=== PATIENT | male | born 1935 | race Caucasian/White ===

== ENCOUNTER → 2016-04-04 | Outpatient (CLI) | payer MEDICARE ==
[2016-04-04 09:15] LABS: Basophils % (A) 0 %; CH 32.2; CHCM 34.1; Eosinophils # (A) 0.5 k/uL (0-0.7); Eosinophils % (A) 6 %; HCT 46.3 % (39.0-53.0); HGB 15.3 gm/dL (13.0-17.5); Luc # (Auto) 0.15; Luc % (Auto) 2; Lymphocytes # (A) 1.9 k/uL (1.0-4.8); Lymphocytes % (A) 20 %; MCH 31.5 pg (25.0-35.0); MCV 95.3 fL (80.0-100.0); Mean Platelet Volume 7.4; Monocytes # (A) 0.5 k/uL (0-1.0); Monocytes % (A) 6 %; Neutrophils # (A) 6.1 k/uL (1.3-7.7); Neutrophils % (A) 66 %; RBC 4.86 m/uL (4.30-5.90); RDW 13.7 % (11.5-15.5); WBC 9.2 k/uL (3.8-10.6); WBC (Perox) 9.67
--- NOTE | 2016-04-04 09:16 | XR ---
EXAMINATION TYPE: XR chest 2V DATE OF EXAM: 04/04/2016 9:09 AM HISTORY: Preoperative this. REFERENCE: Previous study dated 1. FINDINGS: The lungs are clear. Pleural spaces are clear. Heart size is normal. IMPRESSION: NORMAL CHEST.
[2016-04-04 09:22] LABS: INR 1.1 (<1.1); Partial Thromboplastin Time 26.2 sec (22.0-30.0); Prothrombin Time 10.9 sec (9.0-12.0)
[2016-04-04 09:25] LABS: Appearance,Urine Clear (Clear); Bacteria,Urine Rare /hpf; Bilirubin,Urine Negative (Negative); Glucose,Urine (UA) 2+ (Negative); Ketones,Urine Negative (Negative); Leukocyte Esterase,Urine Moderate (Negative); Mucus,Urine Rare /hpf; Nitrite,Urine Negative (Negative); Particle Count 1123; Protein,Urine Negative (Negative); RBC,Urine 1 /hpf (0-5); Specific Gravity,Urine 1.016 (1.001-1.035); Squamous Epithelial Cell,Urine <1 /hpf (0-4); UA Billing (MACRO vs. MICRO) MICRO; Urobilinogen,Urine <2.0 mg/dL (<2.0); WBC,Urine 4 /hpf (0-5)
[2016-04-04 09:34] LABS: Anion Gap 10 mmol/L; Blood Urea Nitrogen 24 mg/dL (9-20); Calcium 9.3 mg/dL (8.4-10.2); Carbon Dioxide 31 mmol/L (22-30); Chloride 104 mmol/L (98-107); Glucose 127 mg/dL (74-99); Non-African American GFR(MDRD) >60 (>60 ml/min/1.73 sqM); Sodium 145 mmol/L (137-145)
[2016-04-04 10:04] LABS: Potassium 4.4 mmol/L (3.5-5.1)
== END | disposition home or self-care (01) ==
LOC: LABPAT 08:25
PROVIDERS: ATTEND Orthopaedic Surgery Orthopaedic Surgery of the Spine
DX: Z01.818 Encounter for other preprocedural examination (principal); Z01.812 Encounter for preprocedural laboratory examination
CPT/HCPCS: 71020; 80048; 81001; 85025; 85610; 85730; 86850; 86900; 86901; 87070

== ENCOUNTER 2016-04-13 05:50 | Inpatient (IN) | payer MEDICARE ==
[2016-04-12 10:54] VITALS: BMI 27.4
[~2016-04-13 05:50] MED LIST: BACITRACIN 50,000 UNIT, POLYMYXIN B 500,000 UNIT in SODIUM CHLORIDE 0.9% IRRIGATIO 1,00... IRRIGATION ONE; DEXAMETHASONE SOD PHOSPHATE 10 MG/ML 1 ML VIAL IV ONE; HYDROmorphone 1 MG/ML 1 ML SYRINGE IVP PRN; ONDANSETRON 4 MG/2 ML VIAL IVP ONE; ceFAZolin 2 GM in SODIUM CHLORIDE 0.9% 100 ML IVPB ONE
[2016-04-13] MEDS ORDERED: LACTATED RINGERS 1,000 ML IV ONE ×3 (06:30→11:48)
[2016-04-13 06:38] LABS: Glucose,Whole Blood 163 mg/dL (75-99)
[2016-04-13] MEDS ORDERED: PHENYLEPHRINE-0.9% NACL SYG 1 MG/10 ML SYRINGE ONE (07:33)
[2016-04-13] MEDS ORDERED: PROPOFOL 10 MG/ML 20 ML VIAL IV ONE (07:33)
[2016-04-13] MEDS ORDERED: HYDROmorphone (PF) 1 MG/ML ONE (07:33)
[2016-04-13] MEDS ORDERED: GLYCOPYRROLATE 0.2 MG/ML 2 ML VIAL ONE (07:33)
[2016-04-13] MEDS ORDERED: HEPARIN SODIUM,PORCINE 10,000 UNIT/ML 1 ML VIAL ONE (07:33)
[2016-04-13] MEDS ORDERED: SUCCINYLCHOLINE CHLORIDE 100 MG/5 ML SYR IV ONE (07:33)
[2016-04-13] MEDS ORDERED: ePHEDrine 50 MG/ML 1 ML AMP ONE (07:33)
[2016-04-13] MEDS ORDERED: LIDOCAINE 1% INJ 10MG/ML (20 ML MDV) ONE (07:33)
[2016-04-13] MEDS ORDERED: SODIUM CHLORIDE 0.9% IRRIG 1,000 ML BTL IRRIGATION ONE (07:33)
[2016-04-13] MEDS ORDERED: fentaNYL (PF) 50 MCG/ML 2 ML AMP ONE (07:33)
[2016-04-13] MEDS ORDERED: BUPIVACAINE LIPOSOME/PF 1.3% 20 ML, BUPIVACAIN-EPI 0.5%-1:200,000 25 ML, SODIUM CHLORID... MISCELLANE ONE ×3 (08:01)
[2016-04-13] MEDS ORDERED: LIDOCAINE 1% INJ 10MG/ML (20 ML MDV) SQ ONE (08:30)
[2016-04-13] MEDS ORDERED: GELATIN SPONGE,ABSORB (LARGE) 1 EACH SPONGE TOPICAL ONE (08:30)
[2016-04-13] MEDS ORDERED: THROMBIN (BOVINE) 5,000 UNIT VIAL TOPICAL ONE (08:30)
[2016-04-13] MEDS ORDERED: ONDANSETRON 4 MG/2 ML VIAL IVP PRN (12:38)
[2016-04-13] MEDS ORDERED: HYDROcodone/APAP 5-325MG 1 EACH TAB PO PRN (12:38)
[2016-04-13] MEDS ORDERED: BENZOCAINE/MENTHOL LOZENG 1 EACH LOZENGE MUCOUS MEM PRN (12:38)
[2016-04-13] MEDS ORDERED: DIAZEPAM 5 MG TAB PO PRN (12:38)
[2016-04-13] MEDS ORDERED: HYDROmorphone 1 MG/ML 1 ML SYRINGE IVP PRN (12:38)
[2016-04-13] MEDS ORDERED: traMADol 50 MG TAB PO PRN (12:41)
[2016-04-13] MEDS ORDERED: ONDANSETRON 4 MG TAB PO PRN (12:41)
--- NOTE | 2016-04-13 12:42 | FL ---
FLUOROSCOPY 2 minutes and 56 seconds of fluoroscopy time were utilized during lumbar fusion. 5 images document th e procedure.
--- NOTE | 2016-04-13 12:54 | P.OP ---
Date of Procedure: 04/13/16 Preoperative Diagnosis: Severe spinal stenosis, recurrent L4 5, spondylolisthesis L4 5, spinal stenosis L3 4, degenerative disc disease, degenerative scoliosis Postoperative Diagnosis: Same Anesthesia: GETA Pathology: none sent Condition: stable Disposition: PACU Description of Procedure: DESCRIPTION OF PROCEDURE(S): BRIEF OPERATIVE NOTE Preoperative Diagnosis: Recurrent stenosis L4 5, severe spinal stenosis L4 5, spinal stenosis L3 4, degenerative scoliosis, spondylolisthesis L4 5, degenerative disc disease Postoperative Diagnosis: Same Procedure: Revision L4 5 Laminectomy and decompression with wide bilateral foraminotomies Laminectomy decompression with foraminotomies L3 4 Minimally invasive Posterior lateral decompression and fusion L3 4 L4 5 Minimally invasive Transforaminal lumbar interbody fusion for a 360 fusion L3 4 L4 5 Discectomy for decompression L3 4 L4 5 Placement of interbody graft L3 4 L4 5 Iliac crest bone grafting at the right iliac crest through a separate fascial incision Bone marrow aspiration left iliac crest through separate fascial incision using a bone marrow aspiration device Local autogenous bone grafting Use of Cell Saver Use of bone graft extenders Surgeon: Dr. Cruz Armhole Baster Hand: Jas Menjivar is present throughout the entire the case persistence during positioning, dissection, exposure, visualization, and all crucial elements of the case as well as closure. Anesthesia: General anesthesia Estimated blood loss: Approximately 400 mL with 189 given back through Cell Saver Complications: None apparent Components implanted: K2M minimally invasive Baden pedicle screw system with use of 6 screws measuring 6.5 x 50 mm in length and 2 rods measuring 70 mm in length with 2 interbody cages and 1 large osteoamp cancellus bone allograft to supplement the iliac crest bone graft and local autogenous bone graft Disposition: To recovery room in good stable condition. OPERATIVE INDICATIONS The patient has had long-standing issues in their lower back and lower extremities. He has history of laminectomy decompression at L4 5 in the past. He developed recurrent severe stenosis L4 5 and a spondylolisthesis at that level with degenerative changes as well as severe stenosis L3 4 with evidence of a right facet cyst at L3 4. His images correlated well with his symptoms at his back and his lower extremities. He is having incapacitating pain and was unable to mobilize and was having severe decreased in his overall function. The patient has been through conservative treatment. He is not having any lasting benefit despite aggressive conservative treatment We discussed various treatment options including surgery, and the patient wishes to proceed with surgery We discussed the risk, patient's alternatives and benefits of surgery including but not limited to, risk of bleeding risk of infection, risk of need for further surgery, risk of decreased, loss of motion, muscle function, malunion nonunion, hardware failure, nerve damage, paralysis, heart attack, blindness and . OPERATIVE SUMMARY After discussing all the risks, patient alternatives and benefits at length, the patient elected to proceed with surgical intervention, signed informed consent, and presented for their procedure. The patient was seen and examined in the preoperative holding area and the surgical site was marked. The patient was given antibiotics and brought to the operating room. The patient was sedated and intubated by anesthesia in standard fashion. The patient was positioned on to the operating room table in a prone position on the appropriate frame which was well-padded and well molded. We were careful to pad any bony prominences and pressure points. We were careful to maintain the patient's cervical spine and good neutral alignment and position throughout. The patient was prepped and draped in a normal standard fashion. An appropriate timeout and keystone protocol performed. We were able to proceed with the surgery. The local wound area was infiltrated with local anesthetic. I was able utilize C-arm guidance to establish appropriate position over the pedicles bilaterally at the appropriate levels bilaterally at L3 to 5. With the appropriate levels confirmed was able to make small stab incisions over the appropriate pedicle sites bilaterally. On the right side I dissected over to the iliac crest and through a separate fascial incision I was able to establish access to the right iliac crest. I made a small cortical window with a rongeur and then took a good amount of cancellus autograft from the right iliac crest with spaces later in the case. On the left side I dissected over and through separate fascial incision I made a access for bone aspiration device and planted device and took approximately 20 mL of bone marrow aspirate from the left iliac crest. The fascial incisions were closed with a #1 Vicryl after irrigation and suctioned dry. Utilizing C-arm in his house able to establish a Jamshidi needle over the lateral aspect of the pedicle and advanced the trocar into the pedicle being careful not to breech superiorly inferiorly medially or laterally. Position was confirmed regularly with AP and lateral images on C-arm. I was able to establish the trocar into the pedicle appropriately into the posterior aspect of the vertebral body bilaterally at the appropriate levels at L3 4 and 5 bilaterally. This was done at each of the pedicle positions and each of the vertebrae. I was able place the guidewire into the trocar and into the vertebral body appropriately under C-arm guidance. Dissection was taken down over the wire to the appropriate starting position for the screw placed. The appropriate length screw was chosen, threaded over the guidewire and screwed appropriately into the pedicle and vertebral body under C-arm guidance in excellent alignment and position with good bony purchase. This is done at each of the screw sites at the appropriate levels at L3 4 and 5. With the screws intact I extended the incision to connect the screw hole sites on the most symptomatic side on the right first at L4 5 and then at L3 4. I dissected down to establish access over the pars and lamina to the base of the spinous process. I was able to expose the facet joint. The capsule the facet was taken down and showed some facet arthrosis at the joint. I was able to use a combination of curettes and Kerrison rongeurs and a high-speed drill to take down the facet joint and do a facetectomy. Partial laminectomy was also performed. There was significant scar tissue formation from prior laminectomy at L4 5 that was able to take down and get good decompression. I was able get excellent foraminal decompression and central decompression with undermining across midline to perform a laminectomy centrally and contralaterally. I was able get good central decompression. The ligamentum flavum was taken down to further decompress centrally and at bilateral neural foramen. I was able to expose the disc space and visualize the traversing nerve root. No was made of some disc protrusion at the level causing further compression of the nerve root. I was able to establish a annulotomy at the appropriate level protecting soft tissue and neural structures. No was made of some disc desiccation at the disc. I performed a complete discectomy with accommodation of curettes and rasps and scrapers. I was able get good endplate preparation at the disc space. I sized for the appropriate size interbody spacer protecting the soft tissue and neural structures. The wound was copiously irrigated and suctioned dry. There is no evidence of any dural tear or leak. The same process was done at L4 5 and then at L3 4. I was able to pack the disc space with autogenous bone graft from the right iliac crest as well as some bone marrow aspirate as well as a which was also placed into the interbody cage itself. The interbody space was packed with autogenous bone graft as well as local autogenous bone graft and ostiaoamp. Protecting the soft tissue structures and neural structures I was able place the interbody cage in good alignment and good position with good fit and fill at the interbody space. His issues was confirmed with C-arm guidance. Good hemostasis maintained. There is no evidence of any dural tear or leak. The wound was irrigated and suctioned dry. On the left side at L4 5 I did a facetectomy and laminectomy as well. I was able get excellent bilateral to compression. With the hardware intact, intraoperative C-arm imaging was again taken which showed good alignment and position of the hardware at the appropriate levels both at L3 4 and L4 5. We were then able to measure, contour and place the rods and appropriate hardware bilaterally. I was able to place capcrews, tighten them down, and shear them off appropriately. The sheared portion was counted and accounted for. With this intact I was able to place the local autogenous bone graft with additional bone graft enhancer as necessary into the posterior lateral gutters over the decorticated transverse processes. The remainder of the infuse was placed over the facet joint on the contralateral side after taking down the facet joint capsule. With the bone graft intact, a stable construct, and good decompression at the appropriate levels, we were able to proceed with closure. Good hemostasis was maintained. There is no evidence of dural tear or leak. The fascia was closed for a watertight closure. he subcuticular tissue was closed with absorbable suture. The wound was cleaned and dried and dressed with the appropriate dressing. The drapes were broken down. The patient was gently rolled back onto their hospital bed being careful to maintain their cervical spine and good neutral alignment and position. They were woken up by anesthesia, extubated, and brought to the recovery room in good stable condition. The patient will be admitted to the hospital for appropriate postoperative care , medical management and monitoring. We will continue to follow them closely about the postoperative course.
[2016-04-13 13:20] LABS: Glucose,Whole Blood 133 mg/dL (75-99)
[2016-04-13] MEDS: LACTATED RINGERS 1,000 ML IV SCH (14:13)
[2016-04-13] MEDS: SODIUM CHLORIDE 0.9% 1,000 ML IV SCH (15:16)
[2016-04-13] MEDS: ceFAZolin 2 GM in SODIUM CHLORIDE 0.9% 100 ML IVPB SCH ×2 (15:16→23:59)
[2016-04-13] MEDS: DICYCLOMINE 10 MG CAP PO SCH ×2 (16:01→21:24)
[2016-04-13] MEDS: GABAPENTIN 100 MG CAP PO SCH ×2 (16:01→21:24)
[2016-04-13 17:15] LABS: Glucose,Whole Blood 100 mg/dL (75-99)
[2016-04-13] MEDS: HYDROcodone/APAP 5-325MG 1 EACH TAB PO PRN (19:47)
[2016-04-13 20:42] LABS: Glucose,Whole Blood 135 mg/dL (75-99)
[2016-04-13] MEDS: INSULIN DETEMIR 100 UNIT/ML 10 ML VIAL SQ SCH (21:22)
[2016-04-13] MEDS: PRAVASTATIN SODIUM 80 MG TAB PO SCH (21:24)
[2016-04-13] MEDS: METOPROLOL TARTRATE 25 MG TAB PO SCH (21:24)
[2016-04-14] MEDS: SODIUM CHLORIDE 0.9% 1,000 ML IV SCH ×2 (04:35→17:05)
[2016-04-14] MEDS: HYDROcodone/APAP 5-325MG 1 EACH TAB PO PRN ×4 (05:47→20:29)
[2016-04-14] MEDS: LACTATED RINGERS 1,000 ML IV SCH (05:59)
[2016-04-14] MEDS: LEVOTHYROXINE 25 MCG TAB PO SCH (06:12)
[2016-04-14 08:02] LABS: Glucose,Whole Blood 84 mg/dL (75-99)
[2016-04-14 08:37] LABS: Basophils % (A) 0 %; CH 31.8; CHCM 33.4; Eosinophils % (A) 0 %; HCT 39.4 % (39.0-53.0); HDW 2.96; HGB 12.9 gm/dL (13.0-17.5); Luc % (Auto) 1; Lymphocytes % (A) 6 %; MCH 31.4 pg (25.0-35.0); MCHC 32.8 g/dL (31.0-37.0); MCV 95.8 fL (80.0-100.0); Mean Platelet Volume 7.7; Monocytes # (A) 1.1 k/uL (0-1.0); Monocytes % (A) 7 %; Neutrophils % (A) 86 %; RBC 4.11 m/uL (4.30-5.90); RDW 13.7 % (11.5-15.5); WBC 16.4 k/uL (3.8-10.6); WBC (Perox) 17.36
[2016-04-14 08:50] LABS: Anion Gap 10 mmol/L; Blood Urea Nitrogen 20 mg/dL (9-20); Calcium 8.4 mg/dL (8.4-10.2); Carbon Dioxide 27 mmol/L (22-30); Chloride 104 mmol/L (98-107); Glucose 86 mg/dL (74-99); Non-African American GFR(MDRD) >60 (>60 ml/min/1.73 sqM); Potassium 4.4 mmol/L (3.5-5.1); Sodium 141 mmol/L (137-145)
[2016-04-14] MEDS: METOPROLOL TARTRATE 25 MG TAB PO SCH ×2 (08:51→21:18)
[2016-04-14] MEDS: TAMSULOSIN 0.4 MG CAP.ER.24H PO SCH (08:51)
[2016-04-14] MEDS: FUROSEMIDE 40 MG TAB PO SCH (08:51)
[2016-04-14] MEDS: AMIODARONE 200 MG TAB PO SCH (08:51)
[2016-04-14] MEDS: POTASSIUM CHLORIDE ER 20 MEQ TAB.ER PO SCH (08:51)
[2016-04-14] MEDS: GABAPENTIN 100 MG CAP PO SCH ×3 (08:52→20:25)
[2016-04-14] MEDS: DICYCLOMINE 10 MG CAP PO SCH ×3 (08:52→20:25)
[2016-04-14] MEDS: LISINOPRIL 20 MG TAB PO SCH (08:52)
[2016-04-14] MEDS: APIXABAN 5 MG TAB PO SCH ×2 (08:52→20:25)
--- NOTE | 2016-04-14 10:42 | P.CONS ---
History of Present Illness - Reason for Consult Consult date: 04/14/16 Medical management Requesting physician: Job Cruz - Chief Complaint Status post laminectomy and decompression - History of Present Illness This is a 80-year-old male with a known history of diabetes, hypertension, atrial fibrillation, myocardial infarction, hypothyroidism, congestive heart failure and BPH. He has been suffering with back pain and has history of severe spinal stenosis. Patient underwent revision of L4-L5 laminectomy and decompression with wide bullet lateral foraminotomies. With laminectomy and decompression with foraminotomies at L3-L4. Estimated blood loss was 400 mL. No complications reported. Patient is currently sitting at bedside chair. Pain is controlled. Does admit to some shortness of breath going from the bed to the chair. He denies any chest pain. Denies any nausea or vomiting. Denies any bowel movement changes. Cevallos catheter removed this morning. We've been consulted for medical management. Patient denies any fever, chills, sweats. Review of Systems Please refer to HPI otherwise unremarkable Past Medical History Past Medical History: Atrial Fibrillation, Heart Failure, Diabetes Mellitus, Hyperlipidemia, Hypertension, Prostate Disorder Additional Past Medical History / Comment(s): CARDIAC ARREST - LAST ONE AUGUST 2014 , palpations,CARDIOMYOPATHY Last Myocardial Infarction Date:: 2014 History of Any Multi-Drug Resistant Organisms: None Reported Past Surgical History: Back Surgery Past Anesthesia/Blood Transfusion Reactions: No Reported Reaction Past Psychological History: No Psychological Hx Reported Smoking Status: Never smoker Past Alcohol Use History: None Reported Past Drug Use History: None Reported - Past Family History Mother Family Medical History: No Reported History Medications and Allergies Home Medications Medication Instructions Recorded Confirmed Type Potassium Chloride [Klor-Con 20] 20 meq PO QAM 08/15/13 04/13/16 History Furosemide 40 mg PO QAM 08/29/14 04/13/16 History Tamsulosin [Flomax] 0.4 mg PO DAILY 08/29/14 04/13/16 History Amiodarone [Cordarone] 200 mg PO DAILY 10/28/15 04/13/16 History Apixaban [Eliquis] 5 mg PO BID 10/28/15 04/13/16 History Dicyclomine [Bentyl] 10 mg PO TID 10/28/15 04/13/16 History Insulin Detemir [Levemir] 35 unit SQ HS 10/28/15 04/13/16 History Metoprolol Tartrate [Lopressor] 25 mg PO BID 10/28/15 04/13/16 History Ondansetron [Zofran] 4 mg PO Q8HR PRN 10/28/15 04/13/16 History Pravastatin Sodium [Pravachol] 80 mg PO HS 10/28/15 04/13/16 History traMADol HCL [Ultram] 50 mg PO Q6HR PRN 10/28/15 04/13/16 History Gabapentin [Neurontin] 100 mg PO TID 04/11/16 04/13/16 History Levothyroxine Sodium [Synthroid] 25 mcg PO DAILY 04/11/16 04/13/16 History Enalapril [Vasotec] 20 mg PO DAILY 04/13/16 04/13/16 History Allergies Allergy/AdvReac Type Severity Reaction Status Date / Time No Known Allergies Allergy Verified 04/11/16 15:12 Physical Exam Vitals: Vital Signs Temp Pulse Pulse Resp BP Pulse Ox 04/14/16 08:11 97.9 F 64 12 123/66 97 04/14/16 00:00 52 L 65 16 04/13/16 20:47 98.5 F 65 16 134/68 98 04/13/16 16:00 16 04/13/16 13:30 52 L 16 118/56 97 04/13/16 13:15 52 L 16 122/58 97 04/13/16 13:00 52 L 16 127/60 97 04/13/16 12:53 98.3 F 57 L 11 L 128/60 98 Intake and Output 04/13/16 04/14/16 04/14/16 22:59 06:59 14:59 Intake Total 600 600 Output Total 400 Balance 600 200 Intake: IV 600 600 Sodium Chloride 0.9% 1, 600 600 000 ml @ 75 mls/hr IV . [id number] Rx#:[id number] Output: Urine 400 Other: Voiding Method Indwelling Catheter Indwelling Catheter Toilet Urinal Head normocephalic Neck supple Lungs clear to auscultation bilaterally no wheezing or crackles Heart regular rate and rhythm S1-S2, no rub or gallop Abdomen is soft nontender nondistended positive bowel sounds no hepatosplenomegaly Extremities trace edema lower extremities Neuro awake and alert. Slightly confused Back: Dressing on back incision small areas of bleeding noted. Results CBC & Chem 7: 04/14/16 07:24 04/14/16 07:24 Labs: Abnormal Lab Results - Last 24 Hours (Table) 04/13/16 04/13/16 04/13/16 Range/Units 13:17 17:13 20:30 WBC (3.8-10.6) k/uL RBC (4.30-5.90) m/uL Hgb (13.0-17.5) gm/dL Plt Count (150-450) k/uL Neutrophils # (1.3-7.7) k/uL Monocytes # (0-1.0) k/uL POC Glucose (mg/dL) 133 H 100 H 135 H (75-99) mg/dL 04/14/16 Range/Units 07:24 WBC 16.4 H (3.8-10.6) k/uL RBC 4.11 L (4.30-5.90) m/uL Hgb 12.9 L (13.0-17.5) gm/dL Plt Count 138 L (150-450) k/uL Neutrophils # 14.0 H (1.3-7.7) k/uL Monocytes # 1.1 H (0-1.0) k/uL POC Glucose (mg/dL) (75-99) mg/dL Assessment and Plan Plan: 1. Severe spinal stenosis, degenerative disc disease, general scoliosis status post revision of L4-L5 laminectomy and decompression with wide bilateral foraminotomies. Laminectomy decompression with foraminotomies of L3-L4. Spinal surgery is following. Continue his current pain control. Continue with physical therapy. 2. History of paroxysmal atrial fibrillation: Eliquis was restarted. Continue amiodarone 3. Leukocytosis: Likely reactive from surgery. Also incentive sponsored will be ordered for any underlying atelectasis 4. Essential hypertension: Resume home blood pressure medications and continue to monitor 5. Diabetes mellitus insulin-dependent. Resume Levemir. Continue sliding scale coverage. 6. History of myocardial infarction 7. History of BPH continue Flomax. Monitor for any urinary retention 8. Hyperlipidemia continue with his pravastatin GI prophylaxis Pepcid and DVT prophylaxis Eliquis Thank you for this consultation. We will continue to follow along with you. Home medications have been reviewed. We will order routine labs tomorrow morning. Time with Patient: Greater than 30 (Greater than 50% of the total time spent in counseling and coordination of care.I performed an examination of the patient and discussed their management with the physician Office Technology Instructor. I have reviewed the Physician Office Technology Instructor's notes and agree with the documented findings and plan of care)
[2016-04-14 11:14] LABS: Hemoglobin A1C 6.8 % (4.2-6.1)
[2016-04-14 11:32] LABS: Glucose,Whole Blood 163 mg/dL (75-99)
[2016-04-14] MEDS: INSULIN LISPRO (humaLOG) 300 UNIT/3 ML VIAL SQ SCH ×3 (13:04→21:16)
[2016-04-14 16:55] LABS: Glucose,Whole Blood 229 mg/dL (75-99)
--- NOTE | 2016-04-14 19:59 | P.PN ---
Progress Note - Text Postoperative day #1 Patient is seen and examined today at bedside. The patient has some pain around the surgical site as expected. Pain is being controlled with medication. He feels his back is doing well and his legs are doing well. Physical Exam Afebrile with stable vital signs Abdomen is soft nontender. Chest has good excursion deep and space expiration The incision site is clean dry and intact. No erythema there is no purulence. His back dressing is clean and dry. Extremities have not had neurologic change from prior to surgery. He has sustained dorsal flexion plantar flexion and extensor hallucis longus. There is some decreased sensation due to neuropathy. Calves and thighs were soft nontender without evidence of DVT. Assessment/Plan Postoperative day #1 status post decompression and fusion with a minimally invasive approach L3 4 and L4 5 with revision decompression L4 5 for his severe spinal stenosis and degenerative scoliosis. Patient is progressing as expected from the surgery. We will try to continue his mobility but he may need placement in extended care facility after discharge if he is not able to mobilize safely on his own. We will continue to increase the patient's mobilization with therapy. We will continue pain control with oral or IV medications. We'll continue to follow patient closely.
[2016-04-14] MEDS: PRAVASTATIN SODIUM 80 MG TAB PO SCH (20:25)
[2016-04-14 20:46] LABS: Glucose,Whole Blood 239 mg/dL (75-99)
[2016-04-14] MEDS: INSULIN DETEMIR 100 UNIT/ML 10 ML VIAL SQ SCH (21:16)
[2016-04-15] MEDS: LEVOTHYROXINE 25 MCG TAB PO SCH (06:10)
[2016-04-15 07:19] LABS: Glucose,Whole Blood 80 mg/dL (75-99)
[2016-04-15] MEDS: INSULIN LISPRO (humaLOG) 300 UNIT/3 ML VIAL SQ SCH ×4 (07:25→21:14)
[2016-04-15] MEDS: TAMSULOSIN 0.4 MG CAP.ER.24H PO SCH (08:03)
[2016-04-15] MEDS: METOPROLOL TARTRATE 25 MG TAB PO SCH ×2 (08:03→21:14)
[2016-04-15] MEDS: AMIODARONE 200 MG TAB PO SCH (08:03)
[2016-04-15] MEDS: POTASSIUM CHLORIDE ER 20 MEQ TAB.ER PO SCH (08:03)
[2016-04-15] MEDS: GABAPENTIN 100 MG CAP PO SCH ×3 (08:03→21:13)
[2016-04-15] MEDS: LISINOPRIL 20 MG TAB PO SCH ×2 (08:04→09:12)
[2016-04-15] MEDS: DICYCLOMINE 10 MG CAP PO SCH ×3 (08:04→21:14)
[2016-04-15] MEDS: FUROSEMIDE 40 MG TAB PO SCH (08:04)
[2016-04-15] MEDS: FAMOTIDINE 20 MG TAB PO SCH (08:04)
[2016-04-15] MEDS: APIXABAN 5 MG TAB PO SCH ×2 (08:04→21:14)
[2016-04-15 08:09] LABS: Basophils # (A) 0.2 k/uL (0-0.2); Basophils % (A) 1 %; CH 31.8; CHCM 33.7; Eosinophils # (A) 0.2 k/uL (0-0.7); Eosinophils % (A) 1 %; HDW 3.04; HGB 11.3 gm/dL (13.0-17.5); Luc # (Auto) 0.21; Luc % (Auto) 1; Lymphocytes # (A) 1.2 k/uL (1.0-4.8); Lymphocytes % (A) 7 %; MCH 31.6 pg (25.0-35.0); MCHC 33.2 g/dL (31.0-37.0); MCV 95.1 fL (80.0-100.0); Mean Platelet Volume 8.3; Monocytes # (A) 1.1 k/uL (0-1.0); Monocytes % (A) 7 %; Neutrophils # (A) 13.5 k/uL (1.3-7.7); Neutrophils % (A) 82 %; RBC 3.57 m/uL (4.30-5.90); RDW 13.9 % (11.5-15.5); WBC 16.5 k/uL (3.8-10.6); WBC (Perox) 18.23
[2016-04-15] MEDS: HYDROcodone/APAP 5-325MG 1 EACH TAB PO PRN ×3 (08:18→21:12)
--- NOTE | 2016-04-15 08:25 | P.PN ---
Progress Note - Text Orthopedic Spine Patient is a pleasant 80-year-old male who is seen and examined at the bedside following minimally invasive L3-4 and L4-5 posterior lateral decompression and fusion with transforaminal lumbar interbody fusion performed Monday, 2016. Patient states they are doing ok postsurgically. His back pain has been adequately controlled but he does not feel any significant change from a neurological standpoint of bilateral lower extremities. He has had significant difficulty with mobility and ambulation postsurgically. He was able to transfer to bedside chair assistance of physical therapy. He is planning a work with physical therapy today. His Cevallos catheter was discontinued yesterday. Since that time, he's had some difficulty with urinary retention. He has had to have straight catheterization performed which time 650 mL was removed yesterday. His nurse states the urine from his catheterization was cloudy. Patient states he would like to increase his mobility as he would like to avoid being discharged to rehabilitation facility. Currently does not complain of nausea, vomiting, fever, or chills. Patient is eating without difficulty. Physical Exam Lumbar Fusion: Status post surgical day number 2 Patient is awake, alert, and oriented 3 Vital signs stable Good chest excursion with deep inspiration and expiration Abdomen soft nontender Dorsiflexion, plantarflexion, and extensor hallucis longus positive sustained bilaterally No signs or symptoms of DVT; no calf pain; pneumatic cuffs intact bilateral lower extremities Dressing is clean, dry, and intact with a small amount of dried blood; no erythema, purulence, or signs of infection No active drainage at the surgical sites No pain with internal and external rotation of the hips bilaterally Assessment: Minimally invasive posterior lateral decompression and fusion L3-4 and L4-5 Transforaminal lumbar interbody fusion L3-4 and L4-5 Low back pain Lower extremity radiculopathy Plan: 1. Ambulate as tolerated; work with Physical Therapy to increase mobilization 2. Continue pain control with IV and oral medications 3. Tegaderm dressing to remain intact 4. Given his difficulties with urination, cloudy urine after catheterization, and history of recent urinary tract infection, we will currently planned to obtain a urinalysis this morning. If he continues to have difficulty with urination, I discussed with his nurse that we may reinsert a new Cevallos catheter 5. Medical management can continue to manage patient for patient's other medical issues 6. We will continue to follow the patient closely; depending on his progress, we may plan to have him discharged to rehabilitation facility prior to returning home if he is unable to increase his mobility and ambulation to an acceptable level the time of discharge 7. Patient can follow-up with Jas Robbins PA-C or Dr. Krishna Cruz at [facility] in 2-3 weeks following discharge
[2016-04-15 08:45] LABS: ALT 38 U/L (21-72); AST 44 U/L (17-59); Alkaline Phosphatase 55 U/L (38-126); Anion Gap 9 mmol/L; Blood Urea Nitrogen 29 mg/dL (9-20); Calcium 8.3 mg/dL (8.4-10.2); Carbon Dioxide 28 mmol/L (22-30); Chloride 101 mmol/L (98-107); Glucose 82 mg/dL (74-99); Non-African American GFR(MDRD) >60 (>60 ml/min/1.73 sqM); Potassium 4.2 mmol/L (3.5-5.1); Sodium 138 mmol/L (137-145); Total Bilirubin 1.3 mg/dL (0.2-1.3); Total Protein 5.2 g/dL (6.3-8.2)
[2016-04-15 11:27] LABS: Glucose,Whole Blood 87 mg/dL (75-99)
--- NOTE | 2016-04-15 12:29 | P.PN ---
Subjective Says 80-year-old male status post back surgery. Coumadin is controlled. Denies any chest pain, shortness breath, nausea or vomiting. Reports having bowel movement. Patient is had some difficulty urinating. He did require straight cath in the evening. And then he was straight cathed again this morning for a urine specimen. Ruling out urinary tract infection. And checking postvoid residuals. Objective - Vital Signs Vital signs: Vital Signs Temp 98.2 F 04/15/16 07:00 Pulse 64 04/15/16 07:00 Resp 16 04/15/16 07:00 BP 116/58 04/15/16 07:00 Pulse Ox 96 04/15/16 07:00 Intake & Output 04/14/16 04/15/16 04/15/16 18:59 06:59 18:59 Intake Total 450 Output Total 1720 Balance -1270 Intake: IV 0 Sodium Chloride 0.9% 1, 0 000 ml @ 75 mls/hr IV . [id number] [facility] Rx#:[id number] Oral 450 Output: Urine 1700 Uretheral (Cevallos) 650 Post Void Residual 20 Other: Voiding Method Toilet Toilet Urinal Urinal # Voids 1 2 # Bowel Movements 1 - Exam Head normocephalic Neck supple Lungs clear to auscultation bilaterally no wheezing or crackles Heart regular rate and rhythm S1-S2, no rub or gallop Abdomen is soft nontender nondistended positive bowel sounds no hepatosplenomegaly Extremities no edema Neuro alert and orientated to 3. With some confusion Back: Dressing clean dry and intact - Labs CBC & Chem 7: 04/15/16 07:41 04/15/16 07:41 Labs: Abnormal Lab Results - Last 24 Hours (Table) 04/14/16 04/14/16 04/15/16 Range/Units 16:52 20:38 07:41 WBC 16.5 H (3.8-10.6) k/uL RBC 3.57 L (4.30-5.90) m/uL Hgb 11.3 L (13.0-17.5) gm/dL Hct 34.0 L (39.0-53.0) % Plt Count 124 L (150-450) k/uL Neutrophils # 13.5 H (1.3-7.7) k/uL Monocytes # 1.1 H (0-1.0) k/uL BUN (9-20) mg/dL POC Glucose (mg/dL) 229 H 239 H (75-99) mg/dL Calcium (8.4-10.2) mg/dL Total Protein (6.3-8.2) g/dL Albumin (3.5-5.0) g/dL 04/15/16 Range/Units 07:41 WBC (3.8-10.6) k/uL RBC (4.30-5.90) m/uL Hgb (13.0-17.5) gm/dL Hct (39.0-53.0) % Plt Count (150-450) k/uL Neutrophils # (1.3-7.7) k/uL Monocytes # (0-1.0) k/uL BUN 29 H (9-20) mg/dL POC Glucose (mg/dL) (75-99) mg/dL Calcium 8.3 L (8.4-10.2) mg/dL Total Protein 5.2 L (6.3-8.2) g/dL Albumin 2.7 L (3.5-5.0) g/dL Assessment and Plan Plan: 1. Severe spinal stenosis, degenerative disc disease, general scoliosis status post revision of L4-L5 laminectomy and decompression with wide bilateral foraminotomies. Laminectomy decompression with foraminotomies of L3-L4. Spinal surgery is following. Continue his current pain control. Continue with physical therapy. 2. History of paroxysmal atrial fibrillation: Eliquis was restarted. Continue amiodarone 3. Leukocytosis: Possibly reactive from surgery. Continue to monitor. Agree with checking urinalysis to rule out UTI 4. Essential hypertension: Resume home blood pressure medications and continue to monitor 5. Diabetes mellitus insulin-dependent. Resume Levemir. Continue sliding scale coverage. Hemoglobin A1c 6.8 6. History of myocardial infarction 7. History of BPH continue Flomax. Monitor for any urinary retention 8. Hyperlipidemia continue with his pravastatin 9. Urinary retention: Patient did require to be straight cathed. We'll check postvoid residuals every shift. If greater than 200 for catheter will be reinserted. Agree with checking urinalysis with culture to rule out UTI. GI prophylaxis Pepcid and DVT prophylaxis Eliquis
[2016-04-15 15:59] LABS: Amorphous Sediment,Urine Occasional /hpf; Appearance,Urine Clear (Clear); Bilirubin,Urine Negative (Negative); Glucose,Urine (UA) Negative (Negative); Granular Casts,Urine 1 /lpf (0); Ketones,Urine Negative (Negative); Leukocyte Esterase,Urine Small (Negative); Mucus,Urine Rare /hpf; Nitrite,Urine Negative (Negative); Particle Count 3277; Protein,Urine Negative (Negative); RBC,Urine 29 /hpf (0-5); Specific Gravity,Urine 1.012 (1.001-1.035); Squamous Epithelial Cell,Urine <1 /hpf (0-4); UA Billing (MACRO vs. MICRO) MICRO; Urobilinogen,Urine <2.0 mg/dL (<2.0); WBC,Urine 10 /hpf (0-5)
[2016-04-15 17:10] LABS: Glucose,Whole Blood 89 mg/dL (75-99)
[2016-04-15] MEDS: ceFAZolin 1,000 MG in DEXTROSE/WATER 1 50ML.BAG IVPB SCH ×2 (19:04→23:33)
[2016-04-15] MEDS: INSULIN DETEMIR 100 UNIT/ML 10 ML VIAL SQ SCH (21:13)
[2016-04-15] MEDS: PRAVASTATIN SODIUM 80 MG TAB PO SCH (21:14)
[2016-04-15 21:16] LABS: Glucose,Whole Blood 127 mg/dL (75-99)
[2016-04-16] MEDS: HYDROcodone/APAP 5-325MG 1 EACH TAB PO PRN ×3 (00:27→23:10)
[2016-04-16] MEDS: LEVOTHYROXINE 25 MCG TAB PO SCH (05:38)
[2016-04-16 06:55] LABS: Glucose,Whole Blood 55 mg/dL (75-99)
[2016-04-16 07:09] LABS: Glucose,Whole Blood 61 mg/dL (75-99)
[2016-04-16 07:25] LABS: Glucose,Whole Blood 77 mg/dL (75-99)
[2016-04-16 07:55] LABS: ALT 36 U/L (21-72); AST 37 U/L (17-59); Alkaline Phosphatase 57 U/L (38-126); Anion Gap 9 mmol/L; Blood Urea Nitrogen 28 mg/dL (9-20); Calcium 8.5 mg/dL (8.4-10.2); Carbon Dioxide 27 mmol/L (22-30); Chloride 103 mmol/L (98-107); Glucose 52 mg/dL (74-99); Non-African American GFR(MDRD) >60 (>60 ml/min/1.73 sqM); Potassium 3.9 mmol/L (3.5-5.1); Sodium 139 mmol/L (137-145); Total Protein 5.3 g/dL (6.3-8.2)
[2016-04-16 07:57] LABS: Basophils % (A) 0 %; CHCM 33.9; Eosinophils # (A) 0.4 k/uL (0-0.7); Eosinophils % (A) 3 %; HCT 33.2 % (39.0-53.0); HDW 3.06; HGB 10.9 gm/dL (13.0-17.5); Luc # (Auto) 0.27; Luc % (Auto) 2; Lymphocytes # (A) 1.7 k/uL (1.0-4.8); Lymphocytes % (A) 12 %; MCH 31.4 pg (25.0-35.0); MCHC 32.9 g/dL (31.0-37.0); MCV 95.4 fL (80.0-100.0); Mean Platelet Volume 8.5; Monocytes # (A) 0.8 k/uL (0-1.0); Monocytes % (A) 6 %; Neutrophils % (A) 77 %; RBC 3.48 m/uL (4.30-5.90); RDW 13.6 % (11.5-15.5); WBC 14.2 k/uL (3.8-10.6); WBC (Perox) 16.26
[2016-04-16] MEDS: INSULIN LISPRO (humaLOG) 300 UNIT/3 ML VIAL SQ SCH ×4 (07:58→21:17)
[2016-04-16] MEDS: POTASSIUM CHLORIDE ER 20 MEQ TAB.ER PO SCH (08:53)
[2016-04-16] MEDS: GABAPENTIN 100 MG CAP PO SCH ×3 (08:53→21:17)
[2016-04-16] MEDS: ceFAZolin 1,000 MG in DEXTROSE/WATER 1 50ML.BAG IVPB SCH ×3 (08:53→23:10)
[2016-04-16] MEDS: AMIODARONE 200 MG TAB PO SCH (08:53)
[2016-04-16] MEDS: METOPROLOL TARTRATE 25 MG TAB PO SCH ×2 (08:53→21:17)
[2016-04-16] MEDS: APIXABAN 5 MG TAB PO SCH ×2 (08:54→21:16)
[2016-04-16] MEDS: TAMSULOSIN 0.4 MG CAP.ER.24H PO SCH (08:54)
[2016-04-16] MEDS: DICYCLOMINE 10 MG CAP PO SCH ×3 (08:54→21:16)
[2016-04-16] MEDS: FAMOTIDINE 20 MG TAB PO SCH (08:54)
[2016-04-16] MEDS: LISINOPRIL 20 MG TAB PO SCH ×2 (08:54→09:33)
[2016-04-16] MEDS: FUROSEMIDE 40 MG TAB PO SCH (08:54)
[2016-04-16 11:57] LABS: Glucose,Whole Blood 133 mg/dL (75-99)
--- NOTE | 2016-04-16 13:26 | P.PN ---
Subjective Patient is a 80-year-old male admitted to medical floor, he is postoperative day #3 he underwent minimally invasive L3-4 and L4-5 posterior lateral decompression and fusion. Patient is complaining still of pain in the back radiating to bilateral lower extremities. He has a known history of cardiomyopathy and known history of atrial fibrillation He denies any chest pain shortness of breath or palpitation at this time. Objective - Vital Signs Vital signs: Vital Signs Temp 98.4 F 04/16/16 07:00 Pulse 70 04/16/16 08:00 Resp 18 04/16/16 07:00 BP 132/71 04/16/16 07:00 Pulse Ox 92 L 04/16/16 07:00 Intake & Output 04/15/16 04/16/16 04/16/16 18:59 06:59 18:59 Output Total 900 800 Balance -900 -800 Output: Urine 900 800 Uretheral (Cevallos) 350 Other: Voiding Method Diaper Indwelling Catheter Indwelling Catheter # Voids 2 - Exam In general patient is alert and oriented 3 in no apparent distress HEENT head normocephalic and atraumatic Neck is supple no JVD no goiter no lymphadenopathy Chest exam reveals a few scattered rhonchi in both lung abdi no wheezing Cardiac exam reveals irregular heart sounds no gallops no murmurs nor tachycardia Abdomen is soft nontender no organomegaly Extremity exam reveals no edema no cyanosis or clubbing - Labs CBC & Chem 7: 04/16/16 07:03 04/16/16 07:03 Labs: Abnormal Lab Results - Last 24 Hours (Table) 04/15/16 04/15/16 04/16/16 Range/Units 15:35 21:13 06:51 WBC (3.8-10.6) k/uL RBC (4.30-5.90) m/uL Hgb (13.0-17.5) gm/dL Hct (39.0-53.0) % Plt Count (150-450) k/uL Neutrophils # (1.3-7.7) k/uL BUN (9-20) mg/dL Glucose (74-99) mg/dL POC Glucose (mg/dL) 127 H 55 L (75-99) mg/dL Total Protein (6.3-8.2) g/dL Albumin (3.5-5.0) g/dL Urine Blood Moderate H (Negative) Ur Leukocyte Esterase Small H (Negative) Urine RBC 29 H (0-5) /hpf Urine WBC 10 H (0-5) /hpf Urine WBC Clumps Rare H (None) /hpf Amorphous Sediment Occasional H (None) /hpf Hyaline Casts 14 H (0-2) /lpf Urine Mucus Rare H (None) /hpf 04/16/16 04/16/16 04/16/16 Range/Units 07:03 07:03 07:07 WBC 14.2 H (3.8-10.6) k/uL RBC 3.48 L (4.30-5.90) m/uL Hgb 10.9 L (13.0-17.5) gm/dL Hct 33.2 L (39.0-53.0) % Plt Count 143 L (150-450) k/uL Neutrophils # 11.0 H (1.3-7.7) k/uL BUN 28 H (9-20) mg/dL Glucose 52 L (74-99) mg/dL POC Glucose (mg/dL) 61 L (75-99) mg/dL Total Protein 5.3 L (6.3-8.2) g/dL Albumin 2.7 L (3.5-5.0) g/dL Urine Blood (Negative) Ur Leukocyte Esterase (Negative) Urine RBC (0-5) /hpf Urine WBC (0-5) /hpf Urine WBC Clumps (None) /hpf Amorphous Sediment (None) /hpf Hyaline Casts (0-2) /lpf Urine Mucus (None) /hpf 04/16/16 Range/Units 11:55 WBC (3.8-10.6) k/uL RBC (4.30-5.90) m/uL Hgb (13.0-17.5) gm/dL Hct (39.0-53.0) % Plt Count (150-450) k/uL Neutrophils # (1.3-7.7) k/uL BUN (9-20) mg/dL Glucose (74-99) mg/dL POC Glucose (mg/dL) 133 H (75-99) mg/dL Total Protein (6.3-8.2) g/dL Albumin (3.5-5.0) g/dL Urine Blood (Negative) Ur Leukocyte Esterase (Negative) Urine RBC (0-5) /hpf Urine WBC (0-5) /hpf Urine WBC Clumps (None) /hpf Amorphous Sediment (None) /hpf Hyaline Casts (0-2) /lpf Urine Mucus (None) /hpf Microbiology - Last 24 Hours (Table) 04/15/16 10:09 Urine Culture - Final Urine,Catheterized Assessment and Plan Plan: 1. Severe spinal stenosis, degenerative disc disease, general scoliosis status post revision of L4-L5 laminectomy and decompression with wide bilateral foraminotomies. Laminectomy decompression with foraminotomies of L3-L4. Spinal surgery is following. Continue his current pain control. Continue with physical therapy. 2. History of paroxysmal atrial fibrillation: Eliquis was restarted. Continue amiodarone 3. Leukocytosis: Possibly reactive from surgery. Continue to monitor. Agree with checking urinalysis to rule out UTI 4. Essential hypertension: Resume home blood pressure medications and continue to monitor 5. Diabetes mellitus insulin-dependent. Resume Levemir. Continue sliding scale coverage. Hemoglobin A1c 6.8 6. History of myocardial infarction 7. History of BPH continue Flomax. Monitor for any urinary retention 8. Hyperlipidemia continue with his pravastatin 9. Urinary retention: Patient did require to be straight cathed. We'll check postvoid residuals every shift. If greater than 200 for catheter will be reinserted. Agree with checking urinalysis with culture to rule out UTI. GI prophylaxis Pepcid and DVT prophylaxis Eliquis
--- NOTE | 2016-04-16 13:40 | P.PN ---
Subjective Principal diagnosis: Lumabar spondylosis, DDD, stenosis Patient is a pleasant 80-year-old male who is seen and examined at the bedside today. He is s/p minimally invasive L3-4 and L4-5 posterior lateral decompression and fusion with transforaminal lumbar interbody fusion performed 04/13/2016. He has pain at the surgical site in the lumbar region as expected. He has no new complaints. He denies new or worsening numbness or tingling. He has been out of bed to chair but is slow with mobilization due to pain in the low back. He has voided. He is tolerating po meds and diet. ROS is negative for fever, chills, chest pain, shortness of breath, cough, calf pain , abdominal pain, headaches, photophobia, slurred speech or other. Objective - Vital Signs Vital signs: Vital Signs Temp 98.4 F 04/16/16 07:00 Pulse 70 04/16/16 08:00 Resp 18 04/16/16 07:00 BP 132/71 04/16/16 07:00 Pulse Ox 92 L 04/16/16 07:00 Intake & Output 04/15/16 04/16/16 04/16/16 18:59 06:59 18:59 Output Total 900 800 Balance -900 -800 Output: Urine 900 800 Uretheral (Cevallos) 350 Other: Voiding Method Diaper Indwelling Catheter Indwelling Catheter # Voids 2 - Exam Lumbar surgical wound is benign. No active bleeding or drainage present. Abdomen is soft and nontender. Lower extremities are neurologically intact with active motor and sensation to light touch equally bilaterally L2-S1. 1+ reflexes at knees and ankles equal bilaterally. Calves are soft and nontender. 2 + pulses and less than 2 sec cap refill present. - Constitutional General appearance: Present: no acute distress - Psychiatric Psychiatric: Present: A&O x's 3, appropriate affect, intact judgment & insight - Labs CBC & Chem 7: 04/16/16 07:03 04/16/16 07:03 Labs: Abnormal Lab Results - Last 24 Hours (Table) 04/15/16 04/15/16 04/16/16 Range/Units 15:35 21:13 06:51 WBC (3.8-10.6) k/uL RBC (4.30-5.90) m/uL Hgb (13.0-17.5) gm/dL Hct (39.0-53.0) % Plt Count (150-450) k/uL Neutrophils # (1.3-7.7) k/uL BUN (9-20) mg/dL Glucose (74-99) mg/dL POC Glucose (mg/dL) 127 H 55 L (75-99) mg/dL Total Protein (6.3-8.2) g/dL Albumin (3.5-5.0) g/dL Urine Blood Moderate H (Negative) Ur Leukocyte Esterase Small H (Negative) Urine RBC 29 H (0-5) /hpf Urine WBC 10 H (0-5) /hpf Urine WBC Clumps Rare H (None) /hpf Amorphous Sediment Occasional H (None) /hpf Hyaline Casts 14 H (0-2) /lpf Urine Mucus Rare H (None) /hpf 04/16/16 04/16/16 04/16/16 Range/Units 07:03 07:03 07:07 WBC 14.2 H (3.8-10.6) k/uL RBC 3.48 L (4.30-5.90) m/uL Hgb 10.9 L (13.0-17.5) gm/dL Hct 33.2 L (39.0-53.0) % Plt Count 143 L (150-450) k/uL Neutrophils # 11.0 H (1.3-7.7) k/uL BUN 28 H (9-20) mg/dL Glucose 52 L (74-99) mg/dL POC Glucose (mg/dL) 61 L (75-99) mg/dL Total Protein 5.3 L (6.3-8.2) g/dL Albumin 2.7 L (3.5-5.0) g/dL Urine Blood (Negative) Ur Leukocyte Esterase (Negative) Urine RBC (0-5) /hpf Urine WBC (0-5) /hpf Urine WBC Clumps (None) /hpf Amorphous Sediment (None) /hpf Hyaline Casts (0-2) /lpf Urine Mucus (None) /hpf 04/16/16 Range/Units 11:55 WBC (3.8-10.6) k/uL RBC (4.30-5.90) m/uL Hgb (13.0-17.5) gm/dL Hct (39.0-53.0) % Plt Count (150-450) k/uL Neutrophils # (1.3-7.7) k/uL BUN (9-20) mg/dL Glucose (74-99) mg/dL POC Glucose (mg/dL) 133 H (75-99) mg/dL Total Protein (6.3-8.2) g/dL Albumin (3.5-5.0) g/dL Urine Blood (Negative) Ur Leukocyte Esterase (Negative) Urine RBC (0-5) /hpf Urine WBC (0-5) /hpf Urine WBC Clumps (None) /hpf Amorphous Sediment (None) /hpf Hyaline Casts (0-2) /lpf Urine Mucus (None) /hpf Microbiology - Last 24 Hours (Table) 04/15/16 10:09 Urine Culture - Final Urine,Catheterized Assessment and Plan (1) Lumbar spondylosis Narrative/Plan: He will continue with routine postop orthopedic spine protocol including wound care, PT, pain management, DVT prophylaxis, and medical management. Encourage mobilization. Expect transfer to ECF/Rehab Monday04/18/2016 Status: Acute Time with Patient: Less than 30
[2016-04-16 16:51] LABS: Glucose,Whole Blood 153 mg/dL (75-99)
[2016-04-16 20:46] LABS: Glucose,Whole Blood 202 mg/dL (75-99)
[2016-04-16] MEDS: PRAVASTATIN SODIUM 80 MG TAB PO SCH (21:16)
[2016-04-16] MEDS: INSULIN DETEMIR 100 UNIT/ML 10 ML VIAL SQ SCH (22:04)
[2016-04-17 06:06] LABS: Glucose,Whole Blood 49 mg/dL (75-99)
[2016-04-17 06:13] LABS: Glucose,Whole Blood 40 mg/dL (75-99)
[2016-04-17] MEDS: LEVOTHYROXINE 25 MCG TAB PO SCH (06:13)
[2016-04-17 06:42] LABS: Glucose,Whole Blood 53 mg/dL (75-99)
[2016-04-17 06:42] LABS: Glucose,Whole Blood 43 mg/dL (75-99)
[2016-04-17 07:09] LABS: Glucose,Whole Blood 50 mg/dL (75-99)
[2016-04-17] MEDS: INSULIN LISPRO (humaLOG) 300 UNIT/3 ML VIAL SQ SCH ×4 (07:22→21:18)
[2016-04-17 07:27] LABS: Glucose,Whole Blood 78 mg/dL (75-99)
[2016-04-17] MEDS: HYDROcodone/APAP 5-325MG 1 EACH TAB PO PRN ×3 (07:30→22:28)
[2016-04-17 07:54] LABS: Basophils % (A) 0 %; CHCM 33.2; Eosinophils # (A) 0.1 k/uL (0-0.7); Eosinophils % (A) 1 %; HCT 39.8 % (39.0-53.0); HDW 3.11; HGB 12.6 gm/dL (13.0-17.5); Luc % (Auto) 2; Lymphocytes # (A) 0.8 k/uL (1.0-4.8); Lymphocytes % (A) 7 %; MCH 30.7 pg (25.0-35.0); MCHC 31.7 g/dL (31.0-37.0); Mean Platelet Volume 8.5; Monocytes # (A) 0.8 k/uL (0-1.0); Monocytes % (A) 6 %; Neutrophils # (A) 10.6 k/uL (1.3-7.7); Neutrophils % (A) 84 %; RDW 13.5 % (11.5-15.5); WBC 12.7 k/uL (3.8-10.6); WBC (Perox) 13.67
[2016-04-17 08:00] LABS: ALT 34 U/L (21-72); AST 37 U/L (17-59); Alkaline Phosphatase 61 U/L (38-126); Anion Gap 12 mmol/L; Blood Urea Nitrogen 23 mg/dL (9-20); Calcium 8.6 mg/dL (8.4-10.2); Carbon Dioxide 28 mmol/L (22-30); Chloride 100 mmol/L (98-107); Glucose 81 mg/dL (74-99); Non-African American GFR(MDRD) >60 (>60 ml/min/1.73 sqM); Potassium 4.1 mmol/L (3.5-5.1); Sodium 140 mmol/L (137-145); Total Bilirubin 1.2 mg/dL (0.2-1.3); Total Protein 6.3 g/dL (6.3-8.2)
[2016-04-17] MEDS: AMIODARONE 200 MG TAB PO SCH (08:40)
[2016-04-17] MEDS: METOPROLOL TARTRATE 25 MG TAB PO SCH ×2 (08:41→21:19)
[2016-04-17] MEDS: LISINOPRIL 20 MG TAB PO SCH (08:41)
[2016-04-17] MEDS: TAMSULOSIN 0.4 MG CAP.ER.24H PO SCH (08:41)
[2016-04-17] MEDS: GABAPENTIN 100 MG CAP PO SCH ×3 (08:41→21:19)
[2016-04-17] MEDS: POTASSIUM CHLORIDE ER 20 MEQ TAB.ER PO SCH (08:42)
[2016-04-17] MEDS: DICYCLOMINE 10 MG CAP PO SCH ×3 (08:42→21:19)
[2016-04-17] MEDS: FAMOTIDINE 20 MG TAB PO SCH (08:42)
[2016-04-17] MEDS: FUROSEMIDE 40 MG TAB PO SCH (08:42)
[2016-04-17] MEDS: APIXABAN 5 MG TAB PO SCH ×2 (08:42→21:19)
[2016-04-17] MEDS: ceFAZolin 1,000 MG in DEXTROSE/WATER 1 50ML.BAG IVPB SCH ×2 (09:12→16:49)
--- NOTE | 2016-04-17 10:05 | P.PN ---
Subjective Principal diagnosis: Lumabar spondylosis, DDD, stenosis Patient is a pleasant 80-year-old male who is seen and examined at the bedside today. He is s/p minimally invasive L3-4 and L4-5 posterior lateral decompression and fusion with transforaminal lumbar interbody fusion performed 04/13/2016. He has pain at the surgical site in the lumbar region as expected which is improved some today. He states that his lower extremity pain is improved some this morning as well. He has no new complaints. He denies new or worsening numbness or tingling. He has been out of bed to chair but is slow with mobilization due to pain in the low back. He has had urinary retention that required replacement of catheter and Dr. Ortega is following. UA culture was negative. He is tolerating PO meds and diet. ROS is negative for fever, chills, chest pain, shortness of breath, cough, calf pain, abdominal pain , headaches, photophobia, slurred speech or other. Objective - Vital Signs Vital signs: Vital Signs Temp 97.4 F L 04/17/16 07:00 Pulse 65 04/17/16 09:33 Resp 18 04/16/16 23:00 BP 161/73 04/17/16 09:33 Pulse Ox 96 04/17/16 07:00 Intake & Output 04/16/16 04/17/16 04/17/16 18:59 06:59 18:59 Intake Total 360 200 Output Total 350 1650 Balance 10 -1450 Intake: Oral 360 200 Output: Urine 350 1650 Other: Voiding Method Indwelling Catheter Indwelling Catheter Indwelling Catheter # Voids 1 # Bowel Movements 1 - Exam Lumbar surgical wound is benign. No active bleeding or drainage present. Abdomen is soft and nontender. Lower extremities are neurologically intact with active motor and sensation to light touch equally bilaterally L2-S1. 1+ reflexes at knees and ankles equal bilaterally. Calves are soft and nontender. No edema. 2+ pulses and less than 2 sec cap refill present. - Constitutional General appearance: Present: no acute distress - Psychiatric Psychiatric: Present: A&O x's 3, appropriate affect, intact judgment & insight - Labs CBC & Chem 7: 04/17/16 07:20 04/17/16 07:20 Labs: Abnormal Lab Results - Last 24 Hours (Table) 04/16/16 04/16/16 04/16/16 Range/Units 11:55 16:45 20:23 WBC (3.8-10.6) k/uL RBC (4.30-5.90) m/uL Hgb (13.0-17.5) gm/dL Neutrophils # (1.3-7.7) k/uL Lymphocytes # (1.0-4.8) k/uL BUN (9-20) mg/dL POC Glucose (mg/dL) 133 H 153 H 202 H (75-99) mg/dL Albumin (3.5-5.0) g/dL 04/17/16 04/17/16 04/17/16 Range/Units 05:56 06:07 06:27 WBC (3.8-10.6) k/uL RBC (4.30-5.90) m/uL Hgb (13.0-17.5) gm/dL Neutrophils # (1.3-7.7) k/uL Lymphocytes # (1.0-4.8) k/uL BUN (9-20) mg/dL POC Glucose (mg/dL) 49 L 40 L 43 L (75-99) mg/dL Albumin (3.5-5.0) g/dL 04/17/16 04/17/16 04/17/16 Range/Units 06:40 06:49 07:20 WBC 12.7 H (3.8-10.6) k/uL RBC 4.10 L (4.30-5.90) m/uL Hgb 12.6 L (13.0-17.5) gm/dL Neutrophils # 10.6 H (1.3-7.7) k/uL Lymphocytes # 0.8 L (1.0-4.8) k/uL BUN (9-20) mg/dL POC Glucose (mg/dL) 53 L 50 L (75-99) mg/dL Albumin (3.5-5.0) g/dL 04/17/16 Range/Units 07:20 WBC (3.8-10.6) k/uL RBC (4.30-5.90) m/uL Hgb (13.0-17.5) gm/dL Neutrophils # (1.3-7.7) k/uL Lymphocytes # (1.0-4.8) k/uL BUN 23 H (9-20) mg/dL POC Glucose (mg/dL) (75-99) mg/dL Albumin 3.3 L (3.5-5.0) g/dL Microbiology - Last 24 Hours (Table) 04/15/16 10:09 Urine Culture - Final Urine,Catheterized Assessment and Plan (1) Lumbar spondylosis Narrative/Plan: He will continue with routine postop orthopedic spine protocol including wound care, PT, pain management, DVT prophylaxis, and medical management. Encourage mobilization. Requested PT try to assist him with getting him ambulating. IM addressing urinary retention. Expect transfer to ECF/Rehab in the next 1-2 days. Status: Acute Time with Patient: Less than 30
--- NOTE | 2016-04-17 10:12 | P.PN ---
Subjective 80-year-old being seen this morning. Patient is status post minimally invasive L3-4 and L4-5 posterior lateral decompression and fusion with transforaminal lumbar interbody fusion performed 04/13/2016. He has pain at the surgical site in the lumbar region as expected. He has no new complaints. He denies new or worsening numbness or tingling. He has been out of bed to chair but is slow with mobilization due to pain in the low back. Nursing reports patient needs much encouragement to get out of bed. Additionally noted the patient has poor oral intake. In the blood sugars have been low this morning blood sugar 78 been ranging between 40 and 78 the Lantus has been held. Currently has an indwelling Cevallos catheter in place. Nursing reports patient has had frequent stooling stool was negative for C. diff. Patient states he hasn't had a bowel movement patient has poor recall Objective - Vital Signs Vital signs: Vital Signs Temp 97.4 F L 04/17/16 07:00 Pulse 65 04/17/16 09:33 Resp 18 04/16/16 23:00 BP 161/73 04/17/16 09:33 Pulse Ox 96 04/17/16 07:00 Intake & Output 04/16/16 04/17/16 04/17/16 18:59 06:59 18:59 Intake Total 360 200 Output Total 350 1650 Balance 10 -1450 Intake: Oral 360 200 Output: Urine 350 1650 Other: Voiding Method Indwelling Catheter Indwelling Catheter Indwelling Catheter # Voids 1 # Bowel Movements 1 - Exam Physical exam 80-year-old male resting in bed appears in no acute distress Lungs diminished at the bases otherwise adequate air movement Heart S1-S2 audible regular Abdomen slightly distended indwelling Cevallos catheter in place stool was negative for C. diff no reports of nausea vomiting a few hypoactive bowel tones noted Nursing reports patient has had poor caloric intake patient states he doesn't feel like eating Extremities no edema noted - Labs CBC & Chem 7: 04/17/16 07:20 04/17/16 07:20 Labs: Abnormal Lab Results - Last 24 Hours (Table) 04/16/16 04/16/16 04/16/16 Range/Units 11:55 16:45 20:23 WBC (3.8-10.6) k/uL RBC (4.30-5.90) m/uL Hgb (13.0-17.5) gm/dL Neutrophils # (1.3-7.7) k/uL Lymphocytes # (1.0-4.8) k/uL BUN (9-20) mg/dL POC Glucose (mg/dL) 133 H 153 H 202 H (75-99) mg/dL Albumin (3.5-5.0) g/dL 04/17/16 04/17/16 04/17/16 Range/Units 05:56 06:07 06:27 WBC (3.8-10.6) k/uL RBC (4.30-5.90) m/uL Hgb (13.0-17.5) gm/dL Neutrophils # (1.3-7.7) k/uL Lymphocytes # (1.0-4.8) k/uL BUN (9-20) mg/dL POC Glucose (mg/dL) 49 L 40 L 43 L (75-99) mg/dL Albumin (3.5-5.0) g/dL 04/17/16 04/17/16 04/17/16 Range/Units 06:40 06:49 07:20 WBC 12.7 H (3.8-10.6) k/uL RBC 4.10 L (4.30-5.90) m/uL Hgb 12.6 L (13.0-17.5) gm/dL Neutrophils # 10.6 H (1.3-7.7) k/uL Lymphocytes # 0.8 L (1.0-4.8) k/uL BUN (9-20) mg/dL POC Glucose (mg/dL) 53 L 50 L (75-99) mg/dL Albumin (3.5-5.0) g/dL 04/17/16 Range/Units 07:20 WBC (3.8-10.6) k/uL RBC (4.30-5.90) m/uL Hgb (13.0-17.5) gm/dL Neutrophils # (1.3-7.7) k/uL Lymphocytes # (1.0-4.8) k/uL BUN 23 H (9-20) mg/dL POC Glucose (mg/dL) (75-99) mg/dL Albumin 3.3 L (3.5-5.0) g/dL Microbiology - Last 24 Hours (Table) 04/15/16 10:09 Urine Culture - Final Urine,Catheterized Assessment and Plan Plan: 1. Severe spinal stenosis, degenerative disc disease, general scoliosis status post revision of L4-L5 laminectomy and decompression with wide bilateral foraminotomies. Laminectomy decompression with foraminotomies of L3-L4. Spinal surgery is following. Continue his current pain control. Continue with physical therapy. 2. History of paroxysmal atrial fibrillation: Eliquis was restarted. Continue amiodarone 3. Leukocytosis: Possibly reactive from surgery. Continue to monitor. Agree with checking urinalysis to rule out UTI 4. Essential hypertension: Resume home blood pressure medications and continue to monitor 5. Diabetes mellitus insulin-dependent. Resume Levemir. Continue sliding scale coverage. Hemoglobin A1c 6.8 6. History of myocardial infarction 7. History of BPH continue Flomax. Monitor for any urinary retention 8. Hyperlipidemia continue with his pravastatin 9. Urinary retention: Patient did require to be straight cathed. Post void residual was greater than 200 indwelling catheter reinserted. Agree with checking urinalysis with culture to rule out UTI. #10 poor caloric intake with episodes of hypoglycemia will start nutritional supplements decrease Levemir to 10 units at bedtime GI prophylaxis Pepcid and DVT prophylaxis Eliquis The above dictated assessment and findings were discussed with dr pinto . Impression and the plan of care have been dictated as directed. Armida Jones nurse practitioner acting as a scribe for dr pinto
--- NOTE | 2016-04-17 11:20 | P.PN ---
Progress Note - Text Postoperative day #4 Patient is seen and examined today at bedside. The patient has some pain around the surgical site as expected. Pain is being controlled with medication. His Cevallos is intact there is essentially clear some small blood- tinged. It was not cloudy. He is not having fevers chills. He feels his legs have made some improvement but he still has great difficulty with mobilizing on his own. Physical Exam Afebrile with stable vital signs Abdomen is soft nontender. Chest has good excursion deep and space expiration The incision site is clean dry and intact. No erythema there is no purulence. His back appears be clear Extremities have not had neurologic change from prior to surgery. He is able to dorsi flex plan flexor and to lift his legs up off the bed. Calves and thighs were soft nontender without evidence of DVT. Assessment/Plan Postoperative day #4 status post decompression and fusion his lumbar spine for his severe spinal stenosis, spondylolisthesis and degenerative scoliosis done minimally invasively Patient is progressing somewhat slowly from the surgery which is not overly surprising giving his age and overall medical status. He is making some slow progress and will encourage him to continue his mobility. He feels that he is going to have a bowel movement today. He had some urinary retention but we will discontinue the Cevallos and see if he is a well-developed bowel movement and able to void on his own today. We will continue to increase the patient's mobilization with therapy. We will continue pain control with oral or IV medications. We'll continue to follow patient closely. He will likely require placement to a chcf facility likely tomorrow.
[2016-04-17 11:31] LABS: Glucose,Whole Blood 222 mg/dL (75-99)
[2016-04-17 17:22] LABS: Glucose,Whole Blood 280 mg/dL (75-99)
[2016-04-17 20:02] LABS: Glucose,Whole Blood 270 mg/dL (75-99)
[2016-04-17] MEDS: INSULIN DETEMIR 100 UNIT/ML 10 ML VIAL SQ SCH (21:18)
[2016-04-17] MEDS: PRAVASTATIN SODIUM 80 MG TAB PO SCH (21:19)
[2016-04-17 22:14] VITALS: RESP 16
[2016-04-18] MEDS: ceFAZolin 1,000 MG in DEXTROSE/WATER 1 50ML.BAG IVPB SCH ×3 (00:50→17:54)
[2016-04-18 01:35] LABS: Glucose,Whole Blood 195 mg/dL (75-99)
[2016-04-18] MEDS: LEVOTHYROXINE 25 MCG TAB PO SCH (06:19)
[2016-04-18 07:09] LABS: Glucose,Whole Blood 150 mg/dL (75-99)
--- NOTE | 2016-04-18 07:43 | P.CONS ---
History of Present Illness - Chief Complaint Gait disturbance - History of Present Illness I had the opportunity to see patient for inpatient rehab consultation with regard to gait disturbance. He was admitted to [facility] April 13 with known lumbar stenosis. Admitted for and underwent elective laminectomy decompression and fusion L3 5. Performed by Dr. Cruz. Seen by Dr. albina casarez for known medical. PT and OT prescribed. PT reports moderate assistance for bed mobility. Moderate to Weeks for transfer. OT reports maximal assistance for upper dressing. Total assistance for lower dressing, bathing, toileting. Previous functional sick: As elicited from patient. 80-year-old right-handed white male who is single lives in a 2 floor home alone. Doesn't smoke or drink. 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 Describes independent with cooking, laundry, driving, standing shower and gait without device. Daughter's apparently taken time off work to be with patient currently. Family history of cancer in both parents. Review of Systems Review of systems: ENT: Denies sneezes or discharge. Eyes: Denies discharge or photophobia. Cardiac: Denies chest pain or palpitation. Pulmonary: Denies cough or shortness of breath. Gastrointestinal: Denies nausea, emesis, constipation, diarrhea. Genitourinary: Denies discharge or frequency. Musculoskeletal: Denies muscle or bone aches. Neurologic: Low back pain. Endocrine: Denies shakes or sweats. Oncology: Denies cancers. Dermatologic: Denies rash, itching, pruritus. ALLERGY/immunology: Denies sneezes, rashes. Past Medical History Past Medical History: Atrial Fibrillation, Heart Failure, Diabetes Mellitus, Hyperlipidemia, Hypertension, Prostate Disorder Additional Past Medical History / Comment(s): CARDIAC ARREST - LAST ONE AUGUST 2014 , palpations,CARDIOMYOPATHY Last Myocardial Infarction Date:: 2014 History of Any Multi-Drug Resistant Organisms: None Reported Past Surgical History: Back Surgery Past Anesthesia/Blood Transfusion Reactions: No Reported Reaction Past Psychological History: No Psychological Hx Reported Smoking Status: Never smoker Past Alcohol Use History: None Reported Past Drug Use History: None Reported - Past Family History Mother Family Medical History: No Reported History Medications and Allergies Home Medications Medication Instructions Recorded Confirmed Type Potassium Chloride [Klor-Con 20] 20 meq PO QAM 08/15/13 04/13/16 History Furosemide 40 mg PO QAM 08/29/14 04/13/16 History Tamsulosin [Flomax] 0.4 mg PO DAILY 08/29/14 04/13/16 History Amiodarone [Cordarone] 200 mg PO DAILY 10/28/15 04/13/16 History Apixaban [Eliquis] 5 mg PO BID 10/28/15 04/13/16 History Dicyclomine [Bentyl] 10 mg PO TID 10/28/15 04/13/16 History Insulin Detemir [Levemir] 35 unit SQ HS 10/28/15 04/13/16 History Metoprolol Tartrate [Lopressor] 25 mg PO BID 10/28/15 04/13/16 History Ondansetron [Zofran] 4 mg PO Q8HR PRN 10/28/15 04/13/16 History Pravastatin Sodium [Pravachol] 80 mg PO HS 10/28/15 04/13/16 History traMADol HCL [Ultram] 50 mg PO Q6HR PRN 10/28/15 04/13/16 History Gabapentin [Neurontin] 100 mg PO TID 04/11/16 04/13/16 History Levothyroxine Sodium [Synthroid] 25 mcg PO DAILY 04/11/16 04/13/16 History Enalapril [Vasotec] 20 mg PO DAILY 04/13/16 04/13/16 History Allergies Allergy/AdvReac Type Severity Reaction Status Date / Time No Known Allergies Allergy Verified 04/11/16 15:12 Physical Exam Vitals: Vital Signs Temp Pulse Pulse Resp BP Pulse Ox 04/17/16 20:35 98.4 F 70 16 157/72 93 L 04/17/16 15:00 98.6 F 62 20 146/65 96 04/17/16 09:33 65 161/73 04/17/16 08:00 65 Intake and Output 04/17/16 04/18/16 04/18/16 22:59 06:59 14:59 Intake Total 440 200 Output Total 1300 Balance 440 -1100 Intake: Oral 440 200 Output: Urine 1300 Uretheral (Cevallos) 1300 Other: Voiding Method Indwelling Catheter # Bowel Movements 1 Skin: Good color, texture, turgor. General: Medium build and comfortable appearance. Head: Normocephalic, atraumatic. Eyes: Symmetric. Pupils equal round. Ears: Symmetric. Hearing within normal limits. Mouth: Clear. Neck: Supple. Carotid without bruit. Cardiac: Regular rate and rhythm. Lungs: Clear anteriorly and posteriorly. Abdomen: Soft active nontender. Extremities: Normal tone. Mild arthritic changes throughout. Back: Did not examine closely as being followed by surgeon. Neurological: Mental status: Alert, cooperative, pleasant. Cranial nerves: Symmetric facial tone and trapezius. Motor: Normal strength and isolation all 4 limbs. Sensation: Intact throughout. DTRs: Symmetric and equal throughout. Mobility: Sits and stands with moderate assistance. Results CBC & Chem 7: 04/17/16 07:20 04/17/16 07:20 Labs: Abnormal Lab Results - Last 24 Hours (Table) 04/17/16 04/17/16 04/17/16 Range/Units 07:20 07:20 11:29 WBC 12.7 H (3.8-10.6) k/uL RBC 4.10 L (4.30-5.90) m/uL Hgb 12.6 L (13.0-17.5) gm/dL Neutrophils # 10.6 H (1.3-7.7) k/uL Lymphocytes # 0.8 L (1.0-4.8) k/uL BUN 23 H (9-20) mg/dL POC Glucose (mg/dL) 222 H (75-99) mg/dL Albumin 3.3 L (3.5-5.0) g/dL 04/17/16 04/17/16 04/18/16 Range/Units 17:21 20:00 01:33 WBC (3.8-10.6) k/uL RBC (4.30-5.90) m/uL Hgb (13.0-17.5) gm/dL Neutrophils # (1.3-7.7) k/uL Lymphocytes # (1.0-4.8) k/uL BUN (9-20) mg/dL POC Glucose (mg/dL) 280 H 270 H 195 H (75-99) mg/dL Albumin (3.5-5.0) g/dL 04/18/16 Range/Units 06:57 WBC (3.8-10.6) k/uL RBC (4.30-5.90) m/uL Hgb (13.0-17.5) gm/dL Neutrophils # (1.3-7.7) k/uL Lymphocytes # (1.0-4.8) k/uL BUN (9-20) mg/dL POC Glucose (mg/dL) 150 H (75-99) mg/dL Albumin (3.5-5.0) g/dL Assessment and Plan (1) Lumbar spondylosis Status: Acute Plan: Oppression: 1. Gait disturbance. 2. Lumbar stenosis. 3. Status post decompression, laminectomy, fusion, lumbar. 4. Diabetes. 5. Hypertension. 6. Active fibrillation. 7. Hyperlipidemia. 8. CHF. Comments and plan: At this time PT and OT are ongoing. We'll await therapy notes today. Safety concerns anticipated in with anticipate a need and benefit of inpatient rehab. Must review case with this patient's insurance criteria for possible admission to the rehab unit.
[2016-04-18 08:02] LABS: Basophils % (A) 0 %; CH 31.9; CHCM 33.3; Eosinophils # (A) 0.4 k/uL (0-0.7); Eosinophils % (A) 4 %; HCT 35.5 % (39.0-53.0); HDW 3.05; HGB 11.6 gm/dL (13.0-17.5); Luc # (Auto) 0.22; Luc % (Auto) 2; Lymphocytes % (A) 11 %; MCH 31.6 pg (25.0-35.0); MCHC 32.8 g/dL (31.0-37.0); MCV 96.2 fL (80.0-100.0); Mean Platelet Volume 7.3; Monocytes # (A) 0.7 k/uL (0-1.0); Monocytes % (A) 8 %; Neutrophils % (A) 74 %; RBC 3.69 m/uL (4.30-5.90); RDW 13.2 % (11.5-15.5); WBC 9.3 k/uL (3.8-10.6); WBC (Perox) 9.91
[2016-04-18] MEDS: AMIODARONE 200 MG TAB PO SCH (08:04)
[2016-04-18] MEDS: APIXABAN 5 MG TAB PO SCH ×2 (08:04→20:17)
[2016-04-18] MEDS: GABAPENTIN 100 MG CAP PO SCH ×3 (08:05→21:54)
[2016-04-18] MEDS: LISINOPRIL 20 MG TAB PO SCH (08:06)
[2016-04-18] MEDS: TAMSULOSIN 0.4 MG CAP.ER.24H PO SCH ×2 (08:11→20:17)
[2016-04-18] MEDS: FAMOTIDINE 20 MG TAB PO SCH (08:11)
[2016-04-18] MEDS: FUROSEMIDE 40 MG TAB PO SCH (08:11)
[2016-04-18] MEDS: METOPROLOL TARTRATE 25 MG TAB PO SCH ×2 (08:11→20:16)
[2016-04-18] MEDS: POTASSIUM CHLORIDE ER 20 MEQ TAB.ER PO SCH (08:11)
[2016-04-18] MEDS: DICYCLOMINE 10 MG CAP PO SCH ×3 (08:12→21:54)
[2016-04-18] MEDS: INSULIN LISPRO (humaLOG) 300 UNIT/3 ML VIAL SQ SCH ×4 (08:13→20:17)
[2016-04-18] MEDS: HYDROcodone/APAP 5-325MG 1 EACH TAB PO PRN ×3 (08:20→20:16)
[2016-04-18 08:22] LABS: ALT 29 U/L (21-72); AST 28 U/L (17-59); Alkaline Phosphatase 65 U/L (38-126); Anion Gap 8 mmol/L; Blood Urea Nitrogen 17 mg/dL (9-20); Calcium 8.5 mg/dL (8.4-10.2); Carbon Dioxide 28 mmol/L (22-30); Chloride 103 mmol/L (98-107); Glucose 155 mg/dL (74-99); Non-African American GFR(MDRD) >60 (>60 ml/min/1.73 sqM); Potassium 4.1 mmol/L (3.5-5.1); Sodium 139 mmol/L (137-145); Total Bilirubin 1.3 mg/dL (0.2-1.3); Total Protein 5.5 g/dL (6.3-8.2)
--- NOTE | 2016-04-18 08:48 | P.DS ---
Providers Date of admission: 04/13/16 05:50 Expected date of discharge: 04/18/16 Attending physician: Job Cruz Consults: 04/13/16 12:38 Consult Physician Routine Consulting Provider: Orlando Toney Consult Reason/Comments: Medical management Do you want consulting provider notified?: Yes 04/16/16 13:28 Consult Physician Routine Consulting Provider: Moris Orantes Consult Reason/Comments: post laminectomy physical debility Do you want consulting provider notified?: Yes 04/17/16 15:28 Consult Physician Routine Consulting Provider: Moris Orantes Consult Reason/Comments: physical debility Do you want consulting provider notified?: Yes Primary care physician: Orlando Toney - Discharge Diagnosis(es) (1) Arthrodesis status Current Visit: Yes Status: Acute (2) Lower extremity weakness Current Visit: Yes Status: Acute (3) Low back pain Current Visit: Yes Status: Acute (4) Status post lumbar spinal fusion Current Visit: Yes Status: Acute (5) Lumbar spinal stenosis Current Visit: Yes Status: Acute (6) Spondylolisthesis, lumbar region Current Visit: Yes Status: Acute (7) Degenerative disc disease, lumbar Current Visit: Yes Status: Acute (8) Degenerative scoliosis Current Visit: Yes Status: Acute (9) Urinary tract infection Current Visit: Yes Status: Acute Hospital Course: This is a pleasant 80-year-old male who presented with a L3-4 spinal stenosis, L4-5 severe spinal stenosis and degenerative disc disease, spondylolisthesis, and degenerative scoliosis who failed outpatient conservative therapy. He admitted for a minimally invasive posterior lateral decompression and fusion L3- 4 and L4-5 with transforaminal lumbar interbody fusion and iliac crest bone graft. The patient tolerated the procedure well but has been recovering slowly post operatively. With the past couple days he has been able to improve his mobility to some degree but continues to move slowly and continues to have lower extremity weakness. He states his low back pain at the surgical site has been controlled with medications. He states he was originally resistant, but feels he would be willing to go to rehab now prior to returning home. He was seen and examined this morning by Dr. Orantes for evaluation for rehab placement. Dr. Orantes states his case must be reviewed with insurance for possible admission to rehabilitation. Patient was also having some difficulty with urinary retention and a urinary tract infection. Cevallos catheter had been reinserted following surgical intervention. This catheter was able to be discontinued yesterday. Since that time he has been able to urinate better. He states he was able to urinate twice this morning on his own. He states he was also able have a bowel movement this morning. He was treated for a urinary tract infection prior to surgical intervention. He has been receiving Kefzol postsurgically. Patient states he is ready for discharge today. Condition on day of discharge stable. Patient will be discharged to an appropriate rehabilitation facility if approved by his insurance company. Patient was cleared preoperatively for surgery by Dr. Toney. Patient currently denies any nausea, vomiting, fever, or chills. Patient is eating and voiding freely without difficulty, but does not have much of an appetite. Patient may shower Tegaderm dressing intact. Patient may remove Tegaderm dressing in 3 days and shower without a dressing at that time. Patient should keep Steri-Strips intact and allow them to fall off naturally. Patient should refrain from driving until at least after their first follow-up appointment in the office. Patient should avoid excessive bending, lifting, and twisting; no lifting greater than 10 pounds. We will plan to discontinue Kefzol at the time of discharge with no further prescriptions for antibiotics for urinary tract infection to be given at that time. He will also be given a prescription for Bowman 5 mg/325 mg 1-2 tabs every 6 hours as needed for pain, dispense 120 (One- hundred-twenty). We will plan for medicine to complete his med rec prior to discharge and also prescribe any other appropriate medications they feel necessary for the patient for his other medical diagnoses. Physical Exam on day of discharge: Status post surgical day number 5 Patient is awake, alert, and oriented 3 Vital signs stable Good chest excursion with deep inspiration and expiration Abdomen soft nontender Dorsiflexion, plantarflexion, and extensor hallucis longus positive sustained bilaterally Positive sustained range of motion of the bilateral lower extremities but generally weaker No signs or symptoms of DVT; no calf pain; pneumatic cuffs intact bilateral lower extremities Dressing is clean, dry, and intact with a small amount of dried blood; no erythema, purulence, or signs of infection No active drainage at the surgical sites No pain with internal and external rotation of the hips bilaterally Assessment: Minimally invasive posterior lateral decompression and fusion L3-4 and L4-5 Transforaminal lumbar interbody fusion L3-4 and L4-5 Low back pain Lower extremity radiculopathy Lumbar spinal stenosis Lumbar degenerative disc disease Lumbar spondylolisthesis Urinary tract infection with retention Procedures: Minimally invasive posterior lateral decompression and fusion with transforaminal lumbar interbody fusion L3-4 and L4-5 with iliac crest bone graft Patient Condition at Discharge: Stable Plan - Discharge Summary New Discharge Prescriptions: Hydrocodone/Acetaminophen [Bowman 5-325] 1 - 2 each PO Q6HR PRN #120 tab PRN Reason: Pain Discharge Medication List Potassium Chloride [Klor-Con 20] 20 meq PO QAM 08/15/13 [History] Furosemide 40 mg PO QAM 08/29/14 [History] Tamsulosin [Flomax] 0.4 mg PO DAILY 08/29/14 [History] Amiodarone [Cordarone] 200 mg PO DAILY 10/28/15 [History] Apixaban [Eliquis] 5 mg PO BID 10/28/15 [History] Dicyclomine [Bentyl] 10 mg PO TID 10/28/15 [History] Insulin Detemir [Levemir] 35 unit SQ HS 10/28/15 [History] Metoprolol Tartrate [Lopressor] 25 mg PO BID 10/28/15 [History] Ondansetron [Zofran] 4 mg PO Q8HR PRN 10/28/15 [History] Pravastatin Sodium [Pravachol] 80 mg PO HS 10/28/15 [History] traMADol HCL [Ultram] 50 mg PO Q6HR PRN 10/28/15 [History] Gabapentin [Neurontin] 100 mg PO TID 04/11/16 [History] Levothyroxine Sodium [Synthroid] 25 mcg PO DAILY 04/11/16 [History] Enalapril [Vasotec] 20 mg PO DAILY 04/13/16 [History] Hydrocodone/Acetaminophen [Bowman 5-325] 1 - 2 each PO Q6HR PRN #120 tab [Rx] Follow up Appointment(s)/Referral(s): Jas Robbins, BRIANNE [PHYSICIAN GRADUATE ASSISTANT ATHLETIC TRAINER] - 2 Weeks (Patient may follow-up with Jas Robbins PA-C or Dr. Krishna Cruz at [facility] in 2-3 weeks following discharge. ) [facility], [NON-STAFF] - 1 Week Activity/Diet/Wound Care/Special Instructions: 1. Patient may shower Tegaderm dressing intact. 2. Patient may remove Tegaderm dressing in 3 days and shower without a dressing at that time. 3. Patient should keep Steri-Strips intact and allow them to fall off naturally. 4. Patient should refrain from driving until at least after their first follow- up appointment in the office. 5. Patient should avoid excessive bending, twisting, and lifting; no lifting greater than 10 pounds 6. Do not soak in tub [facility]-[phone] Discharge Disposition: TRANSFER TO SNF/ECF
--- NOTE | 2016-04-18 12:17 | FL ---
EXAMINATION TYPE: FL barium swallow w video DATE OF EXAM: 04/18/2016 11:59 AM COMPARISON: NONE HISTORY: Bedside Difficulty swallowing TECHNIQUE: Fluoroscopy. FINDINGS: Fluoroscopic guidance was provided for the procedure performed in conjunction with the [facility] pathology department. Please see complete report forthcoming from the Speech Pathology departmen t. Various consistencies from thin liquid to solids were administered. Aspiration was evident with swallowing thin liquids. This was inconsistent. Pooling was evident within the vallecula especially with solids. Some epiglottis edema may be present . More typical changes of epiglottitis are not evident. IMPRESSION: 1. Aspiration with thin liquids. 2. Some edema of the epiglottis with significant pooling in the vallecula, especially with solids.
[2016-04-18 12:21] LABS: Glucose,Whole Blood 275 mg/dL (75-99)
--- NOTE | 2016-04-18 13:54 | P.PN ---
Subjective This is a 80-year-old male status post back surgery. Denies any chest pain, shortness breath, nausea or vomiting. Patient did have urinary retention Cevallos catheter was reinserted during this admission. Cevallos catheter just removed this morning. Nursing staff will be checking postvoid residuals. Patient had not been eating very well and had complained of difficulty with swallowing. Patient failed bedside swallow eval and therefore underwent a modified barium swallow. Results showed aspiration with thin liquids. Also showed some edema of the epiglottis with significant pooling in the vallecula especially with solids. Diet was adjusted to nectar thick liquids with aspiration precautions. Patient is not medically stable for discharge. Patient will need to be seen by Dr. Thomson due to the edema of the epiglottis Objective - Vital Signs Vital signs: Vital Signs Temp 98.6 F 04/18/16 07:00 Pulse 64 04/18/16 08:00 Resp 16 04/18/16 08:00 BP 199/91 04/18/16 07:00 Pulse Ox 93 L 04/18/16 07:00 Intake & Output 04/17/16 04/18/16 04/18/16 18:59 06:59 18:59 Intake Total 640 Output Total 500 1300 500 Balance -500 -660 -500 Intake: Oral 640 Output: Urine 500 1300 500 Uretheral (Cevallos) 1300 Other: Voiding Method Indwelling Catheter Indwelling Catheter Indwelling Catheter # Voids 1 # Bowel Movements 1 - Exam Head normocephalic Neck supple Lungs clear to auscultation bilaterally no wheezing or crackles Heart regular rate and rhythm S1-S2, no rub or gallop Abdomen is soft nontender nondistended positive bowel sounds no hepatosplenomegaly Extremities no edema Neuro alert and orientated to 3. With some confusion Back: Dressing clean dry and intact - Labs CBC & Chem 7: 04/18/16 07:14 04/18/16 07:14 Labs: Abnormal Lab Results - Last 24 Hours (Table) 04/17/16 04/17/16 04/18/16 Range/Units 17:21 20:00 01:33 RBC (4.30-5.90) m/uL Hgb (13.0-17.5) gm/dL Hct (39.0-53.0) % Glucose (74-99) mg/dL POC Glucose (mg/dL) 280 H 270 H 195 H (75-99) mg/dL Total Protein (6.3-8.2) g/dL Albumin (3.5-5.0) g/dL 04/18/16 04/18/16 04/18/16 Range/Units 06:57 07:14 07:14 RBC 3.69 L (4.30-5.90) m/uL Hgb 11.6 L (13.0-17.5) gm/dL Hct 35.5 L (39.0-53.0) % Glucose 155 H (74-99) mg/dL POC Glucose (mg/dL) 150 H (75-99) mg/dL Total Protein 5.5 L (6.3-8.2) g/dL Albumin 2.9 L (3.5-5.0) g/dL 04/18/16 Range/Units 12:17 RBC (4.30-5.90) m/uL Hgb (13.0-17.5) gm/dL Hct (39.0-53.0) % Glucose (74-99) mg/dL POC Glucose (mg/dL) 275 H (75-99) mg/dL Total Protein (6.3-8.2) g/dL Albumin (3.5-5.0) g/dL Assessment and Plan Plan: 1. Severe spinal stenosis, degenerative disc disease, general scoliosis status post revision of L4-L5 laminectomy and decompression with wide bilateral foraminotomies. Laminectomy decompression with foraminotomies of L3-L4. Spinal surgery is following. Continue his current pain control. Continue with physical therapy. 2. History of paroxysmal atrial fibrillation: Eliquis was restarted. Continue amiodarone 3. Leukocytosis: Possibly reactive from surgery. Continue to monitor. 4. Essential hypertension: Resume home blood pressure medications and continue to monitor 5. Diabetes mellitus insulin-dependent. Resume Levemir. Continue sliding scale coverage. Hemoglobin A1c 6.8 6. History of myocardial infarction 7. History of BPH continue Flomax. Monitor for any urinary retention 8. Hyperlipidemia continue with his pravastatin 9. Urinary retention: Catheter was removed this morning. We'll have nursing staff check postvoid residuals. 10. UTI: Urine culture is negative. Patient did receive 4 days of. Won't need antibiotics at time of discharge. 11. Difficulty with swallowing. Failed swallowing eval. Modified barium's study showed aspiration with thin liquids and some edema of the epiglottis. Patient on nectar thick liquid diet. Speech therapy following. Consult Dr. Thomson in regards to edema of the epiglottis Patient is not medically stable for discharge today. We'll have patient evaluated by ENT service. We will reevaluate the patient tomorrow. Agree when patient is medically stable for discharge to proceed with a transfer to inpatient rehab at [facility]. GI prophylaxis Pepcid and DVT prophylaxis Eliquis
[2016-04-18 17:48] LABS: Glucose,Whole Blood 230 mg/dL (75-99)
[2016-04-18] MEDS: amLODIPine 2.5 MG TAB PO SCH (17:54)
[2016-04-18 20:10] LABS: Glucose,Whole Blood 337 mg/dL (75-99)
[2016-04-18] MEDS: PRAVASTATIN SODIUM 80 MG TAB PO SCH (20:17)
[2016-04-18] MEDS: INSULIN DETEMIR 100 UNIT/ML 10 ML VIAL SQ SCH (20:17)
[2016-04-19] MEDS: ceFAZolin 1,000 MG in DEXTROSE/WATER 1 50ML.BAG IVPB SCH ×2 (00:02→08:35)
[2016-04-19] MEDS: HYDROcodone/APAP 5-325MG 1 EACH TAB PO PRN ×2 (06:13→11:26)
[2016-04-19] MEDS: LEVOTHYROXINE 25 MCG TAB PO SCH (06:13)
[2016-04-19 07:26] LABS: Glucose,Whole Blood 232 mg/dL (75-99)
[2016-04-19 07:30] LABS: ALT 29 U/L (21-72); AST 18 U/L (17-59); Alkaline Phosphatase 56 U/L (38-126); Anion Gap 7 mmol/L; Blood Urea Nitrogen 16 mg/dL (9-20); Calcium 8.3 mg/dL (8.4-10.2); Carbon Dioxide 30 mmol/L (22-30); Chloride 104 mmol/L (98-107); Glucose 229 mg/dL (74-99); Non-African American GFR(MDRD) >60 (>60 ml/min/1.73 sqM); Potassium 4.3 mmol/L (3.5-5.1); Sodium 141 mmol/L (137-145); Total Bilirubin 1.3 mg/dL (0.2-1.3); Total Protein 5.1 g/dL (6.3-8.2)
[2016-04-19] MEDS: amLODIPine 2.5 MG TAB PO SCH (08:23)
[2016-04-19] MEDS: GABAPENTIN 100 MG CAP PO SCH (08:23)
[2016-04-19] MEDS: DICYCLOMINE 10 MG CAP PO SCH (08:24)
[2016-04-19] MEDS: POTASSIUM CHLORIDE ER 20 MEQ TAB.ER PO SCH (08:24)
[2016-04-19] MEDS: LISINOPRIL 20 MG TAB PO SCH (08:24)
[2016-04-19] MEDS: TAMSULOSIN 0.4 MG CAP.ER.24H PO SCH (08:24)
[2016-04-19] MEDS: AMIODARONE 200 MG TAB PO SCH (08:25)
[2016-04-19] MEDS: APIXABAN 5 MG TAB PO SCH (08:25)
[2016-04-19] MEDS: FUROSEMIDE 40 MG TAB PO SCH (08:25)
[2016-04-19] MEDS: FAMOTIDINE 20 MG TAB PO SCH (08:25)
[2016-04-19] MEDS: METOPROLOL TARTRATE 25 MG TAB PO SCH (08:25)
[2016-04-19] MEDS: INSULIN LISPRO (humaLOG) 300 UNIT/3 ML VIAL SQ SCH ×2 (08:26→12:00)
--- NOTE | 2016-04-19 08:46 | P.PN ---
Progress Note - Text This is a pleasant 80-year-old male who presented with a L3-4 spinal stenosis, L4-5 severe spinal stenosis and degenerative disc disease, spondylolisthesis, and degenerative scoliosis who failed outpatient conservative therapy. He admitted for a minimally invasive posterior lateral decompression and fusion L3- 4 and L4-5 with transforaminal lumbar interbody fusion and iliac crest bone graft. The patient tolerated the procedure well but has been recovering slowly post operatively. With the past couple days he has been able to improve his mobility to some degree but continues to move slowly and continues to have lower extremity weakness. He states his low back pain at the surgical site has been controlled with medications but has more soreness this morning. He is currently planning to be discharged to [facility] rehab today after approval by his insurance. He was seen and examined yesterday by Dr. Orantes for evaluation for rehab placement. Patient has been having some difficulty with urinary retention since being seen and examined yesterday. Yesterday morning he had been voiding without significant difficulty. A Cevallos catheter has been reinserted. Medicine is currently planned to have him discharged to rehab with his Cevallos catheter intact. Flomax medication has been increased. He is also has some difficulty with high blood pressure. This morning his blood pressure was 191/81. Medicine is currently treating him for his hypertension. Yesterday patient was also evaluated for difficulties with swallowing. Patient states he is not having difficulty eating just does not prefer the food here. His family has been bringing him food and he states he has been eating without difficulty. Nursing states his diet has been discussed in detail with his family and his family has been bringing soft foods for him to eat. Per his nurse, medicine is currently planning for him to continue on pure diet until he is able to swallow better. Patient states he is ready for discharge today. Condition on day of discharge stable. Patient was cleared preoperatively for surgery by Dr. Toney. Patient currently denies any nausea, vomiting, fever, or chills. Patient may shower Tegaderm dressing intact. Patient may remove Tegaderm dressing in 3 days and shower without a dressing at that time. Patient should keep Steri-Strips intact and allow them to fall off naturally. Patient should refrain from driving until at least after their first follow-up appointment in the office. Patient should avoid excessive bending, lifting, and twisting; no lifting greater than 10 pounds. We will plan to discontinue Kefzol at the time of discharge with no further prescriptions for antibiotics for urinary tract infection to be given at that time. A prescription has been written and placed in his chart for discharge for [place] 5 mg/325 mg 1-2 tabs every 6 hours as needed for pain, dispense 120 ([id number]). We will plan for medicine to complete his med rec prior to discharge and also prescribe any other appropriate medications they feel necessary for the patient for his other medical diagnoses. Physical Exam on day of discharge: Status post surgical day number 6 Patient is awake, alert, and oriented 3 Vital signs stable Good chest excursion with deep inspiration and expiration Abdomen soft nontender Dorsiflexion, plantarflexion, and extensor hallucis longus positive sustained bilaterally Positive sustained range of motion of the bilateral lower extremities but generally weaker No signs or symptoms of DVT; no calf pain; pneumatic cuffs intact bilateral lower extremities Dressing is clean, dry, and intact with a small amount of dried blood; no erythema, purulence, or signs of infection No active drainage at the surgical sites No pain with internal and external rotation of the hips bilaterally Assessment: Minimally invasive posterior lateral decompression and fusion L3-4 and L4-5 Transforaminal lumbar interbody fusion L3-4 and L4-5 Low back pain Lower extremity radiculopathy Lumbar spinal stenosis Lumbar degenerative disc disease Lumbar spondylolisthesis Urinary tract infection with retention Plan: 1. Patient will currently be planned to be discharged to receive rehabilitation today. He may continue to increase his ambulation mobility while here as while at physical therapy. We'll plan to have him follow-up in approximately 2-3 weeks for further evaluation in the outpatient setting. Dressing to remain intact with next 3 days. She may shower with dressing intact. Dressing may be removed at that time and patient may shower without a dressing at that time. Patient should avoid excessive bending, twisting, lifting; no lifting greater than 10 pounds 2. Medicine to continue following the patient for his other significant medical diagnoses including urinary retention and high blood pressure 3. Continue pain control 4. From an orthopedic spine standpoint, patient is clear for discharge; currently waiting for discharge by medicine; patient currently scheduled for discharge to [facility] rehab today 5. Continue to monitor the patient's swallowing; patient states he has not been having any difficulties with swallowing and has been eating food brought in by his family without significant difficulty; patient states food does not taste good here to hospital but he has not been having difficulty with other foods 6. Following discharge, patient may follow-up with Jas Al PA-C or Dr. Krishna Martines [facility] in approximately 2-3 weeks for further evaluation 7. I have discussed this patient in detail Dr. Krishna Martines agrees with this plan
[2016-04-19 09:07] LABS: Basophils % (A) 0 %; CH 31.7; CHCM 33.1; Eosinophils # (A) 0.4 k/uL (0-0.7); Eosinophils % (A) 5 %; HCT 33.1 % (39.0-53.0); HDW 3.02; HGB 10.7 gm/dL (13.0-17.5); Luc # (Auto) 0.19; Luc % (Auto) 2; Lymphocytes # (A) 1.3 k/uL (1.0-4.8); Lymphocytes % (A) 15 %; MCH 31.2 pg (25.0-35.0); MCHC 32.4 g/dL (31.0-37.0); MCV 96.3 fL (80.0-100.0); Mean Platelet Volume 7.8; Monocytes # (A) 0.6 k/uL (0-1.0); Monocytes % (A) 7 %; Neutrophils % (A) 71 %; RBC 3.43 m/uL (4.30-5.90); RDW 13.3 % (11.5-15.5); WBC 8.5 k/uL (3.8-10.6); WBC (Perox) 8.83
[2016-04-19 12:03] LABS: Glucose,Whole Blood 339 mg/dL (75-99)
--- NOTE | 2016-04-19 12:35 | P.DS ---
Providers Date of admission: 04/13/16 05:50 Attending physician: Job Cruz Consults: 04/13/16 12:38 Consult Physician Routine Consulting Provider: Orlando Toney Consult Reason/Comments: Medical management Do you want consulting provider notified?: Yes 04/16/16 13:28 Consult Physician Routine Consulting Provider: Moris Orantes Consult Reason/Comments: post laminectomy physical debility Do you want consulting provider notified?: Yes 04/17/16 15:28 Consult Physician Routine Consulting Provider: Moris Orantes Consult Reason/Comments: physical debility Do you want consulting provider notified?: Yes 04/18/16 13:45 Consult Physician Routine Consulting Provider: Toby Pitts Consult Reason/Comments: edema of epiglottis Do you want consulting provider notified?: Yes Primary care physician: Orlando Toney [facility] Course: Diagnosis on discharge #1 severe spinal stenosis status post revision of L4-L5 laminectomy and decompression with wide bilateral foraminotomies And laminectomy with decompression of L3-L4 #2 history of paroxysmal atrial fibrillation maintained on liquids and amiodarone #3 underlying history of cardiomyopathy #4 hypertension #5 insulin requiring diabetes mellitus #6 BPH was urinary retention maintained on Flomax dose was increased to 0.4 twice daily patient has Cevallos catheter #7 UTI, received antibiotic during this admission Hospital course Patient is a 80-year-old male admitted to [facility] by Dr. Cho and underwent spinal surgery for severe low back pain Post surgery patient had a complication with urinary retention requiring Cevallos catheter placement dose of Flomax was increased to 0.4 mg twice daily Patient also failed swallow eval and was placed on nectar thick liquids and pur ed diet he had evidence of swelling of the epiglottis likely related to intubation. Patient is improving gradually he remains in significant pain and he remains unable to stand or walk he will be transferred to [facility] rehabilitation unit Patient Condition at Discharge: Stable Plan - Discharge Summary New Discharge Prescriptions: Hydrocodone/Acetaminophen [[place] 5-325] 1 - 2 each PO Q6HR PRN #120 tab PRN Reason: Pain Discharge Medication List Potassium Chloride [Klor-Con 20] 20 meq PO QAM 08/15/13 [History] Furosemide 40 mg PO QAM 08/29/14 [History] Amiodarone [Cordarone] 200 mg PO DAILY 10/28/15 [History] Apixaban [Eliquis] 5 mg PO BID 10/28/15 [History] Dicyclomine [Bentyl] 10 mg PO TID 10/28/15 [History] Metoprolol Tartrate [Lopressor] 25 mg PO BID 10/28/15 [History] Pravastatin Sodium [Pravachol] 80 mg PO HS 10/28/15 [History] traMADol HCL [Ultram] 50 mg PO Q6HR PRN 10/28/15 [History] Gabapentin [Neurontin] 100 mg PO TID 04/11/16 [History] Levothyroxine Sodium [Synthroid] 25 mcg PO DAILY 04/11/16 [History] Enalapril [Vasotec] 20 mg PO DAILY 04/13/16 [History] Hydrocodone/Acetaminophen [[place] 5-325] 1 - 2 each PO Q6HR PRN #120 tab [Rx] Diazepam [Valium] 5 mg PO QID PRN #0 tab 04/19/16 [Rx] INSULIN LISPRO (humaLOG) [humaLOG (formulary)] 0 unit SQ ACHS vial 04/19/16 [Rx ] Insulin Detemir [Levemir] 10 unit SQ HS vial 04/19/16 [Rx] Tamsulosin [Flomax] 0.4 mg PO BID cap.er.24h 04/19/16 [Rx] amLODIPine [Norvasc] 2.5 mg PO DAILY tab 04/19/16 [Rx] Follow up Appointment(s)/Referral(s): Jas Robbins, BRIANNE [PHYSICIAN DERRICK ENGINEER] - 2 Weeks (Patient may follow-up with Jas Robbins PA-C or Dr. Krishna Cruz at [facility] in 2-3 weeks following discharge. ) [facility], [NON-STAFF] - 1 Week Activity/Diet/Wound Care/Special Instructions: 1. Patient may shower Tegaderm dressing intact. 2. Patient may remove Tegaderm dressing in 3 days and shower without a dressing at that time. 3. Patient should keep Steri-Strips intact and allow them to fall off naturally. 4. Patient should refrain from driving until at least after their first follow- up appointment in the office. 5. Patient should avoid excessive bending, twisting, and lifting; no lifting greater than 10 pounds 6. Do not soak in tub [phone] Discharge Disposition: TRANSFER TO SNF/ECF
[2016-04-19 15:24] VITALS: BP 149/68; PULSE 65; TEMP 98.3
== END 2016-04-19 15:47 | DRG 460 ==
LOC: 2ORMAIN 05:50 → 5MS5E 12:45
PROVIDERS: ADMIT Orthopaedic Surgery Orthopaedic Surgery of the Spine; ATTEND Orthopaedic Surgery Orthopaedic Surgery of the Spine
PROC: 07DR3ZZ Extraction of Iliac Bone Marrow, Percutaneous Approach (ICD-10-PCS; principal; 2016-04-13 07:30)
PROC: 0SB20ZZ Excision of Lumbar Vertebral Disc, Open Approach (ICD-10-PCS; principal; 2016-04-13 07:30)
PROC: 0SG10AJ Fusion of 2 or more Lumbar Vertebral Joints with Interbody Fusion Device, Posterior Approach, Anterior Column, Open Approach (ICD-10-PCS; principal; 2016-04-13 07:30)
PROC: 0SG1071 Fusion of 2 or more Lumbar Vertebral Joints with Autologous Tissue Substitute, Posterior Approach, Posterior Column, Open Approach (ICD-10-PCS; principal; 2016-04-13 07:30)
DX: M48.06 Spinal stenosis, lumbar region (principal); I11.0 Hypertensive heart disease with heart failure; I42.9 Cardiomyopathy, unspecified; I50.9 Heart failure, unspecified; N39.0 Urinary tract infection, site not specified; I48.0 Paroxysmal atrial fibrillation; E11.9 Type 2 diabetes mellitus without complications; E03.9 Hypothyroidism, unspecified; M47.26 Other spondylosis with radiculopathy, lumbar region; M51.16 Intervertebral disc disorders with radiculopathy, lumbar region; M43.16 Spondylolisthesis, lumbar region; E78.5 Hyperlipidemia, unspecified; I25.2 Old myocardial infarction; M41.80 Other forms of scoliosis, site unspecified; N40.1 Benign prostatic hyperplasia with lower urinary tract symptoms; R33.8 Other retention of urine; Z79.4 Long term (current) use of insulin; Z86.74 Personal history of sudden cardiac arrest
CPT/HCPCS: 72100; 74230; 80048; 80053; 81001; 83036; 85025; 86850; 86891; 86900; 86901; 87086; 87324

== ENCOUNTER 2016-09-27 09:39 | Day surgery (SDC) | payer MEDICARE ==
[2016-09-21 10:43] VITALS: BMI 29.9
[~2016-09-27 09:39] MED LIST changes: -BACITRACIN 50,000 UNIT, POLYMYXIN B 500,000 UNIT in SODIUM CHLORIDE 0.9% IRRIGATIO 1,00... IRRIGATION ONE; +LACTATED RINGERS 1,000 ML IV SCH; +SODIUM CHLORIDE 0.9% 1,000 ML IV SCH; -ceFAZolin 2 GM in SODIUM CHLORIDE 0.9% 100 ML IVPB ONE
[2016-09-27] MEDS ORDERED: INSULIN LISPRO (humaLOG) 300 UNIT/3 ML VIAL SQ ONE (10:49)
[2016-09-27 10:50] LABS: Glucose,Whole Blood 224 mg/dL (75-99)
[2016-09-27] MEDS ORDERED: PHENYLEPHRINE-0.9% NACL SYG 1 MG/10 ML SYRINGE ONE (12:32)
[2016-09-27] MEDS ORDERED: LIDOCAINE 1% INJ 10MG/ML (20 ML MDV) ONE (12:32)
[2016-09-27] MEDS ORDERED: SUCCINYLCHOLINE CHLORIDE 100 MG/5 ML SYR IV ONE (12:32)
[2016-09-27] MEDS ORDERED: GLYCOPYRROLATE 0.2 MG/ML 2 ML VIAL ONE (12:32)
[2016-09-27] MEDS ORDERED: PROTAMINE SULFATE 10 MG/ML 5 ML VIAL IV ONE ×3 (12:32→15:57)
[2016-09-27] MEDS ORDERED: MIDAZOLAM 2 MG/2 ML VIAL ONE (12:32)
[2016-09-27] MEDS ORDERED: fentaNYL (PF) 50 MCG/ML 2 ML AMP ONE (12:32)
[2016-09-27] MEDS ORDERED: PROPOFOL 10 MG/ML 20 ML VIAL IV ONE (12:32)
[2016-09-27] MEDS ORDERED: LIDOCAINE 2% INJ 20 MG/ML SQ ONE (12:32)
[2016-09-27] MEDS ORDERED: ePHEDrine SULFATE/0.9% NACL/PF 50 MG/5 ML SYRINGE IV ONE (12:32)
[2016-09-27] MEDS ORDERED: ISOPROTERENOL 250 MCG/1.25 ML SYR IV ONE (12:32)
[2016-09-27] MEDS ORDERED: IV FLUID CONTINUATION 1,000 ML IV ONE (12:33)
[2016-09-27] MEDS ORDERED: HEPARIN SODIUM,PORCINE/D5W PMX 25,000 UNIT in DEXTROSE/WATER 1 500ML.BAG IV ONE (13:54)
[2016-09-27 14:51] LABS: Glucose,Whole Blood 143 mg/dL (75-99)
[2016-09-27] MEDS ORDERED: LACTATED RINGERS 1,000 ML IV ONE (15:56)
[2016-09-27] MEDS ORDERED: IOHEXOL 350 MG/ML 100 ML BOTTLE INJ ONE (15:57)
[2016-09-27] MEDS ORDERED: ACETAMINOPHEN TAB 325 MG TAB PO PRN (16:06)
[2016-09-27] MEDS ORDERED: DICYCLOMINE 10 MG CAP PO PRN (16:08)
--- NOTE | 2016-09-27 16:23 | P.PCN ---
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 Underlying sick sinus syndrome Procedures performed Femoral artery catheterization/invasive hemodynamic monitoring and sampling Compressive diagnostic EP study CS pacing and recording Programmed stimulation following Isuprel Intracardiac echocardiography Left right transseptal catheterization Conventional catheter-based mapping of the pulmonary veins Cryoablation of the pulmonary veins Intraesophageal temperature monitoring Result Successful isolation of all 4 pulmonary veins with cryoablation with documented entrance and exit block No evidence for phrenic nerve injury Esophageal temperatures remained stable through the procedure Postoperative Diagnosis: Procedure(s) Performed: Implants: Indications for Procedure: Operative Findings: Description of Procedure:
[2016-09-27] MEDS ORDERED: ACETAMINOPHEN IV (For NPO) 1,000 MG in EMPTY BAG 1 BAG IVPB ONE (16:30)
[2016-09-27 17:05] LABS: Glucose,Whole Blood 132 mg/dL (75-99)
--- NOTE | 2016-09-27 17:43 | PCN ---
This is a 81-year-old male patient who underwent pulmonary vein isolation with cryoablation for tachycardia ( ) cardiomyopathy related to atrial fibrillation. Patient was brought to the EP lab in a fasting state. Written informed consent was obtained prior to the procedure. Procedure was performed under general anesthesia and esophageal probe was placed for temperature monitoring. Right and left groins were prepped and draped as per protocol. Femoral artery catheter was placed for invasive hemodynamic monitoring and sampling. ACT was maintained above 300. Blood pressure remained stable throughout the procedure. This was removed at the end of the procedure and hemostasis was assured after using protamine for reversal of heparin. Venous access was obtained and sheaths were placed in the right and left femoral veins. Via these, diagnostic catheters were placed in high right atrium , His bundle area, coronary sinus and RV. Sinus cycle length 974 ms, HI interval 204 ms, QRS 165 ms, QT 474 ms. AH 121 ms. HV 63 ms. Sinus node recovery times at 600, 500 and 400 ms are 1327, 1445 and 1663 ms. Corrected sinus node recovery time is prolonged at a pacing cycle length of 400 ms. AV node Wenckebach block 570 ms, VA Wenckebach block greater than 600 ms. Isuprel was started wide open. AV Wenckebach block improved to 360 ms. VA Wenckebach block improved to 500 ms. AV node Wenckebach block from the coronary sinus was 350 ms. Atrial tachycardia was induced at a cycle length of 459 ms with a localized sequence. VAAV response was noted to ventricular pacing. With faster ventricular pacing, the ventricle was dissociated. Atrial pacing resulted in termination of the tachycardia. Antral isolation of the pulmonary veins was performed. Intracardiac echo was performed. Interatrial septum was identified. Pulmonary veins were identified. Left and right transseptal catheterization was performed. RA pressure of 15/2/ 13 mmHg and LA pressure of 16/2/9 mmHg. Cryoablation sheath was placed in the left atrium. The cryoballoon was placed in the left atrium. Attain catheter was placed. The patient had already been heparinized. The left-sided veins followed by the right-sided veins were then successfully ablated. The left superior vein was isolated. Two lesions were delivered for 120 seconds and 180 seconds, and excellent temperature parameters were achieved. The vein was completed isolated. The left inferior pulmonary vein was then isolated. Two lesion sets were delivered, 180 seconds for the first and 180 seconds for the second lesion. Excellent temperature parameters were noted and the vein was completely isolated at the end of the procedure. ( ) block was demonstrated. Following that, the right superior vein followed by the left superior vein underwent successful cryoablation. Phenic nerve pacing was performed. There was no evidence for any phrenic nerve injury during or after the ablation. The right superior pulmonary vein received 2 lesion sets of 180 seconds each, with excellent temperature parameters. The right inferior pulmonary vein also received 2 lesion sets, the first one for 120 seconds and the second for 240 seconds. This resulted in complete isolation of both veins with documented entrance and exit block. Thereafter the sheaths were removed. Heparin was stopped. Heparin was reversed. Hemostasis was assured. The patient was extubated. Esophageal temperatures remained stable and in normal range, above 30 degrees Centigrade. The patient tolerated the procedure well, without any acute complications. [facility]
[2016-09-27] MEDS: INSULIN LISPRO (humaLOG) 300 UNIT/3 ML VIAL SQ SCH (19:06)
[2016-09-27 20:59] LABS: Glucose,Whole Blood 134 mg/dL (75-99)
[2016-09-27] MEDS ORDERED: PRAVASTATIN SODIUM 80 MG TAB PO SCH (21:00)
[2016-09-27] MEDS ORDERED: INSULIN DETEMIR 100 UNIT/ML 10 ML VIAL SQ SCH (21:00)
[2016-09-27] MEDS: GABAPENTIN 300 MG CAP PO SCH (21:04)
[2016-09-27] MEDS: METOPROLOL TARTRATE 25 MG TAB PO SCH (21:05)
[2016-09-28 06:18] LABS: Glucose,Whole Blood 142 mg/dL (75-99)
[2016-09-28] MEDS ORDERED: LEVOTHYROXINE 25 MCG TAB PO SCH (06:30)
[2016-09-28] MEDS: INSULIN LISPRO (humaLOG) 300 UNIT/3 ML VIAL SQ SCH ×2 (07:25→12:39)
[2016-09-28 07:51] VITALS: RESP 16
--- NOTE | 2016-09-28 07:51 | P.DS ---
Providers Attending physician: Oniel Lane Consults: 09/27/16 16:58 Consult Physician Routine Consulting Provider: Orlando Toney Consult Reason/Comments: DIABETES MANAGMENT Do you want consulting provider notified?: Yes Primary care physician: Stated None Hospital Course: Patient is doing well postprocedure. He is lying comfortably in bed. No chest discomfort no shortness of breath no cough expectoration or GI symptoms no pleuritic chest discomfort no abdominal discomfort groins have healed well. Vitals are stable blood pressure 119/63 mmHg normal respirations pulse rate 71 afebrile 97F. Heart sounds S1 normal S2 normal no murmurs no gallops. Breath sounds normal no adventitious sounds no rhonchi no crackles. 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 Ames after about a week Continue current medications without any changes including anticoagulation Patient Condition at Discharge: Stable Plan - Discharge Summary New Discharge Prescriptions: No Action Potassium Chloride [Klor-Con 20] 20 meq PO QAM Furosemide 40 mg PO QAM Pravastatin Sodium [Pravachol] 80 mg PO HS Metoprolol Tartrate [Lopressor] 25 mg PO BID Dicyclomine [Bentyl] 10 mg PO TID PRN PRN Reason: IRRITABLE BOWEL Apixaban [Eliquis] 5 mg PO BID Amiodarone [Cordarone] 200 mg PO DAILY Gabapentin [Neurontin] 300 mg PO TID Levothyroxine Sodium [Synthroid] 25 mcg PO DAILY Enalapril [Vasotec] 20 mg PO DAILY Insulin Detemir [Levemir] 45 unit SQ HS INSULIN LISPRO (humaLOG) [humaLOG (formulary)] 7 unit SQ TID-W/MEALS Ergocalciferol (Vitamin D2) [Vitamin D2] 50,000 unit PO FR Tamsulosin [Flomax] 0.4 mg PO ONCE Discharge Medication List Potassium Chloride [Klor-Con 20] 20 meq PO QAM 08/15/13 [History] Furosemide 40 mg PO QAM 08/29/14 [History] Amiodarone [Cordarone] 200 mg PO DAILY 10/28/15 [History] Apixaban [Eliquis] 5 mg PO BID 10/28/15 [History] Dicyclomine [Bentyl] 10 mg PO TID PRN 10/28/15 [History] Metoprolol Tartrate [Lopressor] 25 mg PO BID 10/28/15 [History] Pravastatin Sodium [Pravachol] 80 mg PO HS 10/28/15 [History] Gabapentin [Neurontin] 300 mg PO TID 04/11/16 [History] Levothyroxine Sodium [Synthroid] 25 mcg PO DAILY 04/11/16 [History] Enalapril [Vasotec] 20 mg PO DAILY 04/13/16 [History] Ergocalciferol (Vitamin D2) [Vitamin D2] 50,000 unit PO FR 09/21/16 [History] INSULIN LISPRO (humaLOG) [humaLOG (formulary)] 7 unit SQ TID-W/MEALS 09/21/16 [ History] Insulin Detemir [Levemir] 45 unit SQ HS 09/21/16 [History] Tamsulosin [Flomax] 0.4 mg PO ONCE 09/27/16 [History] Activity/Diet/Wound Care/Special Instructions: Post EP study - Ablation instructions 1. Keep access sites dry for 2 days. 2. No heavy lifting or straining for 2 days. 3. Avoid bending the hips repeatedly for 2 days. 4. You may go up and down stairs slowly Call if the following is noted 1. Bleeding, increasing swelling or pain at the access sites. 2. Increasing chest discomfort, especially upon taking a deep breath. 3. Increasing shortness of breath, at rest or with exertion. 4. Undue cough / phlegm 5. Difficulty or pain while swallowing. 6. Pain or change in color in the extremities. 7. Fever, chills, rigors. 8. Increasing headache or neurologic symptoms. 9. Dizziness, fainting, palpitations Follow-up with Dr. Ames next week on Monday No Changes in medications
[2016-09-28] MEDS: GABAPENTIN 300 MG CAP PO SCH ×2 (08:50→16:24)
[2016-09-28] MEDS: METOPROLOL TARTRATE 25 MG TAB PO SCH (08:51)
[2016-09-28] MEDS ORDERED: APIXABAN 5 MG TAB PO SCH (09:00)
[2016-09-28] MEDS ORDERED: AMIODARONE 200 MG TAB PO SCH (09:00)
[2016-09-28] MEDS ORDERED: LISINOPRIL 20 MG TAB PO SCH (09:00)
[2016-09-28] MEDS ORDERED: POTASSIUM CHLORIDE ER 20 MEQ TAB.ER PO SCH (09:00)
[2016-09-28] MEDS ORDERED: FUROSEMIDE 40 MG TAB PO SCH (09:00)
--- NOTE | 2016-09-28 12:00 | P.CONS ---
History of Present Illness - Reason for Consult Consult date: 09/28/16 Medical management - Chief Complaint Medical management - History of Present Illness This is a 81-year-old gentleman with past medical history noted below significant for chronic atrial fibrillation who was admitted to the hospital by EP and underwent pulmonary vein isolation/cryoablation. Patient is doing fairly well today. His postoperative day #1. He is hemodynamically stable. He does not have any concerns or complaints. I was asked to see him for medical management. Review of Systems Review of system: 14 points review of systems were obtained and were negative except to what were mentioned in the HPI. Past Medical History Past Medical History: Diabetes Mellitus, Hyperlipidemia, Myocardial Infarction ( [place]) Additional Past Medical History / Comment(s): cardiac arrest- SEE DR VINES'S CARDIAC HISTORY AND PHYSICAL Last Myocardial Infarction Date:: 2014 History of Any Multi-Drug Resistant Organisms: None Reported Past Surgical History: Back Surgery, Heart Catheterization Additional Past Surgical History / Comment(s): BACK SURGERY X2 Past Anesthesia/Blood Transfusion Reactions: No Reported Reaction Smoking Status: Never smoker - Past Family History Mother Family Medical History: Cancer Brother(s) Family Medical History: Cancer Medications and Allergies Home Medications Medication Instructions Recorded Confirmed Type Potassium Chloride [Klor-Con 20] 20 meq PO QAM 08/15/13 09/21/16 History Furosemide 40 mg PO QAM 08/29/14 09/21/16 History Amiodarone [Cordarone] 200 mg PO DAILY 10/28/15 09/21/16 History Apixaban [Eliquis] 5 mg PO BID 10/28/15 09/27/16 History Dicyclomine [Bentyl] 10 mg PO TID PRN 10/28/15 09/21/16 History Metoprolol Tartrate [Lopressor] 25 mg PO BID 10/28/15 09/21/16 History Pravastatin Sodium [Pravachol] 80 mg PO HS 10/28/15 09/27/16 History Gabapentin [Neurontin] 300 mg PO TID 04/11/16 09/21/16 History Levothyroxine Sodium [Synthroid] 25 mcg PO DAILY 04/11/16 09/21/16 History Enalapril [Vasotec] 20 mg PO DAILY 04/13/16 09/21/16 History Ergocalciferol (Vitamin D2) 50,000 unit PO FR 09/21/16 09/27/16 History [Vitamin D2] INSULIN LISPRO (humaLOG) [humaLOG 7 unit SQ TID-W/MEALS 09/21/16 09/27/16 History (formulary)] Insulin Detemir [Levemir] 45 unit SQ HS 09/21/16 09/27/16 History Tamsulosin [Flomax] 0.4 mg PO ONCE 09/27/16 09/27/16 History Allergies Allergy/AdvReac Type Severity Reaction Status Date / Time No Known Allergies Allergy Verified 09/21/16 09:17 Physical Exam Vitals: Vital Signs Temp Pulse Pulse Pulse Resp BP Pulse Ox 09/28/16 11:31 97.0 F L 63 16 130/73 94 L 09/28/16 07:49 97.1 F L 71 16 108/87 94 L 09/28/16 04:00 97.0 F L 71 16 148/77 94 L 09/28/16 00:00 97.7 F 72 16 119/63 97 09/27/16 20:00 98.0 F 75 18 122/70 95 09/27/16 18:52 97.6 F 70 16 126/74 96 09/27/16 17:52 68 16 132/74 96 09/27/16 17:30 63 18 124/62 97 09/27/16 17:22 66 18 137/82 95 09/27/16 17:10 63 16 124/69 96 09/27/16 16:55 64 16 117/60 96 09/27/16 16:52 97.8 F 66 18 127/78 96 09/27/16 16:41 97.1 F L 66 16 115/57 95 Intake and Output 09/27/16 09/28/16 09/28/16 22:59 06:59 14:59 Intake Total 120 140 Output Total 950 700 Balance -830 -700 140 Intake: IV 0 Intake, IV Titration 20 Amount Sodium Chloride 0.9% 1, 20 000 ml @ 20 mls/hr IV . Q24H [facility] Rx#:[id number] Oral 120 120 Output: Urine 950 700 Uretheral (Cevallos) 300 Other: Voiding Method Indwelling Catheter Toilet # Voids 1 Weight 86.5 kg General: The patient is awake and alert, in no distress, and does not appear acutely ill. Eye: extra-ocular movements are intact; there is normal conjunctiva bilaterally. . Neck: The neck is supple, there is no tenderness or JVD. Cardiovascular: Normal S1-S2, no S3-S4, no murmurs. Respiratory: Lungs clear to auscultation bilaterally with no wheezes rhonchi or rales. Gastrointestinal: Abdomen is soft, nontender, nondistended, with no organomegaly. . Musculoskeletal: Normal ROM, no tenderness, There is no pedal edema. Neurological: There are no obvious motor or sensory deficits. Speech is normal. Skin: Skin is warm and dry and no rashes or lesions are noted. Results Labs: Abnormal Lab Results - Last 24 Hours (Table) 09/27/16 09/27/16 09/27/16 Range/Units 14:37 17:03 20:57 POC Glucose (mg/dL) 143 H 132 H 134 H (75-99) mg/dL 09/28/16 Range/Units 06:17 POC Glucose (mg/dL) 142 H (75-99) mg/dL Assessment and Plan Plan: 1. Status post pulmonary vein isolation/cryoablation 2. Chronic symptomatic atrial fibrillation 3. Underlying sick sinus syndrome 4. Type 2 diabetes mellitus, insulin-dependent 5. Essential hypertension: Blood pressure well-controlled 6. Underlying BPH Today, I reviewed his medication list and lab work results. Apparently, patient will be discharged later on today. His blood glucose is within acceptable range. Continue same home medication upon discharge. No changes made by me today. Thank you very much for the consultation.
[2016-09-28 12:58] LABS: Glucose,Whole Blood 107 mg/dL (75-99)
[2016-09-28 16:17] VITALS: BP 125/60; PULSE 66; TEMP 98.7
[2016-09-28 17:04] LABS: Glucose,Whole Blood 128 mg/dL (75-99)
== END 2016-09-28 17:00 | disposition home or self-care (01) ==
LOC: CATHEP 09:39 → 6SEL 15:49 → CATHEP 09-28 17:00
PROVIDERS: ATTEND Internal Medicine Clinical Cardiac Electrophysiology
DX: I48.0 Paroxysmal atrial fibrillation (principal); Z79.01 Long term (current) use of anticoagulants; I49.5 Sick sinus syndrome; I47.1 Supraventricular tachycardia; I42.8 Other cardiomyopathies; I10 Essential (primary) hypertension; E78.5 Hyperlipidemia, unspecified; E11.9 Type 2 diabetes mellitus without complications; Z79.4 Long term (current) use of insulin; Z79.899 Other long term (current) drug therapy
CPT/HCPCS: 85347; 93623; 93662; 93609; 93656; C1894 ×3; C1769 ×4; C1730 ×4; C1759; C1893; C1733; C1766; J2001 ×2; J2250; J2720; Q9967; J1644; J3010; J0131; J2370; J0330; J2704

== ENCOUNTER 2017-09-06 15:51 | Inpatient (IN) | payer MEDICARE ==
[2017-09-06] MEDS ORDERED: SODIUM CHLORIDE 0.9% 500 ML IV STA (16:43)
--- NOTE | 2017-09-06 16:50 | ED ---
General Adult HPI - General Chief complaint: Shortness of Breath Stated complaint: abn ekg Source: patient Mode of arrival: wheelchair Limitations: no limitations - History of Present Illness Initial comments: Dictation was produced using [employer] dictation software. please excuse any grammatical, word or spelling errors. Chief Complaint: 82-year-old male with past medical history coronary artery disease, congestive heart failure, hyperlipidemia, hypertension presents with generalized weakness, chest pain and poor appetite. History of Present Illness: She reports that he was at his primary care's office today when EKG was performed. EKG was abnormal and he was sent to the emergency department. Patient states that over the past several days he's been having worsening weakness, shortness of breath and chest pain. Patient denies any of those symptoms today. Patient is on anticoagulation for history of H or fibrillation. He is also on heart rate controlling medications. Cc been taking his medications as prescribed. The ROS documented in this emergency department record has been reviewed and confirmed by me. Those systems with pertinent positive or negative responses have been documented in the HPI. All other systems are other negative and/or noncontributory. - Related Data Home Medications Medication Instructions Recorded Confirmed Potassium Chloride [Klor-Con 20] 20 meq PO QAM 08/15/13 09/06/17 Furosemide 40 mg PO QAM 08/29/14 09/06/17 Amiodarone [Cordarone] 100 mg PO DAILY 10/28/15 09/06/17 Apixaban [Eliquis] 5 mg PO BID 10/28/15 09/06/17 Dicyclomine [Bentyl] 10 mg PO TID PRN 10/28/15 09/06/17 Metoprolol Tartrate [Lopressor] 25 mg PO BID 10/28/15 09/06/17 Pravastatin Sodium [Pravachol] 80 mg PO HS 10/28/15 09/06/17 Gabapentin [Neurontin] 300 mg PO TID 04/11/16 09/06/17 Levothyroxine Sodium [Synthroid] 25 mcg PO DAILY 04/11/16 09/06/17 Enalapril [Vasotec] 20 mg PO DAILY 04/13/16 09/06/17 Ergocalciferol (Vitamin D2) 50,000 unit PO FR 09/21/16 09/06/17 [Vitamin D2] Insulin Detemir [Levemir] 52 unit SQ HS 09/21/16 09/06/17 Tamsulosin [Flomax] 0.4 mg PO DAILY 09/27/16 09/06/17 Insulin Aspart [Novolog Flexpen] 7 unit SQ AC-TID 09/06/17 09/06/17 Allergies Allergy/AdvReac Type Severity Reaction Status Date / Time No Known Allergies Allergy Verified 09/06/17 16:43 Review of Systems ROS Statement: Those systems with pertinent positive or pertinent negative responses have been documented in the HPI. ROS Other: All systems not noted in ROS Statement are negative. Past Medical History Past Medical History: Coronary Artery Disease (CAD), Diabetes Mellitus, Hyperlipidemia, Hypertension Additional Past Medical History / Comment(s): HALLUCINATIONS, DIZZINESS. cardiac arrest palpations Last Myocardial Infarction Date:: 2014 History of Any Multi-Drug Resistant Organisms: None Reported Past Surgical History: Back Surgery, Heart Catheterization Past Anesthesia/Blood Transfusion Reactions: No Reported Reaction Past Psychological History: No Psychological Hx Reported Smoking Status: Never smoker Past Alcohol Use History: None Reported Past Drug Use History: None Reported - Past Family History Mother Family Medical History: Cancer Brother(s) Family Medical History: Cancer General Exam - General Exam Comments Initial Comments: PHYSICAL EXAM: General Impression: Alert and oriented x3, not in acute distress HEENT: Normocephalic atraumatic, extra-ocular movements intact, pupils equal and reactive to light bilaterally, mucous membranes moist. Cardiovascular: Heart regular rate and rhythm, S1&S2 audible, no murmurs, rubs or gallops Chest: Lungs clear to auscultation bilaterally, no rhonchi, no wheeze, no rales Abdomen: Bowel sounds present, abdomen soft, non-tender, non-distended, no organomegaly Musculoskeletal: Pulses present and equal in all extremities, no peripheral edema Motor: Power 5/5 bilaterally, no focal deficits noted Neurological: CN II-XII grossly intact, no focal motor or sensory deficits noted Skin: Intact with no visualized rashes Psych: Normal affect and mood Limitations: no limitations Course Vital Signs 09/06/17 09/06/17 09/06/17 16:02 17:02 18:00 Temperature 97.5 F L Pulse Rate 41 L 110 H 96 Respiratory 18 20 20 Rate Blood Pressure 117/59 119/56 112/57 O2 Sat by Pulse 94 L 99 97 Oximetry 09/06/17 09/06/17 09/06/17 19:00 20:00 21:00 Temperature 98.6 F Pulse Rate 116 H 96 106 H Respiratory 20 20 20 Rate Blood Pressure 120/78 113/66 104/70 O2 Sat by Pulse 96 96 98 Oximetry Medical Decision Making - Medical Decision Making ED course: 82-year-old male sent in by his primary care physician for abnormal EKG and generalized weakness. Vital signs upon arrival shows heart rate 114, rest of vital signs within normal limits. Patient is well-appearing at this time. Physical examination is unremarkable.Discussed patient case with primary care physician who sent patient in for evaluation. He was concerned that patient was expressing H fibrillation rapid ventricular rate and congestive heart failure. Laboratory evaluation obtained. CBC is unremarkable. Coag panel unremarkable. There is mild elevation of renal markers. BNP peptide is 4530. Rest of metabolic panel is unremarkable. Chest x-ray obtained showing atelectasis of the left lung base. Patient is well-appearing and tolerating by mouth at bedside. He is not complaining of any chest pain. Discussed patient case with primary care physician. Patient shortness breath is likely secondary to congestive heart failure. Patient given 20 mg of IV Lasix and by mouth metoprolol. Primary care physician requests that patient be admitted to the hospital for gentle diuresis. Recommends 20 mg IV lasix every 8 hours. EKG was obtained. EKG shows ventricular rate of 114, QRS 120, QTC 372. There appears to be nonspecific irregularly irregular rhythm. It appears that there are P waves that conduct separately from QRS. EKG not suggestive of atrial fibrillation with rapid ventricular rate. It appears to be consistent with intraventricular conduction delay. - Lab Data Result diagrams: 09/06/17 16:55 09/07/17 06:01 Lab Results 09/06/17 09/06/17 09/06/17 Range/Units 16:55 16:55 16:55 WBC 9.8 (3.8-10.6) k/uL RBC 4.90 (4.30-5.90) m/uL Hgb 15.1 (13.0-17.5) gm/dL Hct 45.8 (39.0-53.0) % MCV 93.6 (80.0-100.0) fL MCH 30.8 (25.0-35.0) pg MCHC 32.9 (31.0-37.0) g/dL RDW 13.9 (11.5-15.5) % Plt Count 165 (150-450) k/uL Neutrophils % 57 % Lymphocytes % 31 % Monocytes % 6 % Eosinophils % 5 % Basophils % 0 % Neutrophils # 5.5 (1.3-7.7) k/uL Lymphocytes # 3.0 (1.0-4.8) k/uL Monocytes # 0.6 (0-1.0) k/uL Eosinophils # 0.5 (0-0.7) k/uL Basophils # 0.0 (0-0.2) k/uL PT (9.0-12.0) sec INR (<1.2) APTT (22.0-30.0) sec Sodium 143 (137-145) mmol/L Potassium 4.2 (3.5-5.1) mmol/L Chloride 107 (98-107) mmol/L Carbon Dioxide 27 (22-30) mmol/L Anion Gap 9 mmol/L BUN 32 H (9-20) mg/dL Creatinine 1.38 H (0.66-1.25) mg/dL Est GFR (CKD-EPI)AfAm 56 (>60 ml/min/1.73 sqM) Est GFR (CKD-EPI)NonAf 48 (>60 ml/min/1.73 sqM) Glucose 65 L (74-99) mg/dL Calcium 8.8 (8.4-10.2) mg/dL Magnesium 2.3 (1.6-2.3) mg/dL Total Bilirubin 0.8 (0.2-1.3) mg/dL AST 25 (17-59) U/L ALT 36 (21-72) U/L Alkaline Phosphatase 77 (38-126) U/L Total Creatine Kinase 135 (55-170) U/L CK-MB (CK-2) 2.7 H* (0.0-2.4) ng/mL CK-MB (CK-2) Rel Index 2.0 Troponin I 0.013 (0.000-0.034) ng/mL NT-Pro-B Natriuret Pep pg/mL Total Protein 6.1 L (6.3-8.2) g/dL Albumin 3.7 (3.5-5.0) g/dL 07/18/18 07/18/18 Range/Units 16:55 16:55 WBC (3.8-10.6) k/uL RBC (4.30-5.90) m/uL Hgb (13.0-17.5) gm/dL Hct (39.0-53.0) % MCV (80.0-100.0) fL MCH (25.0-35.0) pg MCHC (31.0-37.0) g/dL RDW (11.5-15.5) % Plt Count (150-450) k/uL Neutrophils % % Lymphocytes % % Monocytes % % Eosinophils % % Basophils % % Neutrophils # (1.3-7.7) k/uL Lymphocytes # (1.0-4.8) k/uL Monocytes # (0-1.0) k/uL Eosinophils # (0-0.7) k/uL Basophils # (0-0.2) k/uL PT 11.0 (9.0-12.0) sec INR 1.1 (<1.2) APTT 25.1 (22.0-30.0) sec Sodium (137-145) mmol/L Potassium (3.5-5.1) mmol/L Chloride (98-107) mmol/L Carbon Dioxide (22-30) mmol/L Anion Gap mmol/L BUN (9-20) mg/dL Creatinine (0.66-1.25) mg/dL Est GFR (CKD-EPI)AfAm (>60 ml/min/1.73 sqM) Est GFR (CKD-EPI)NonAf (>60 ml/min/1.73 sqM) Glucose (74-99) mg/dL Calcium (8.4-10.2) mg/dL Magnesium (1.6-2.3) mg/dL Total Bilirubin (0.2-1.3) mg/dL AST (17-59) U/L ALT (21-72) U/L Alkaline Phosphatase (38-126) U/L Total Creatine Kinase (55-170) U/L CK-MB (CK-2) (0.0-2.4) ng/mL CK-MB (CK-2) Rel Index Troponin I (0.000-0.034) ng/mL NT-Pro-B Natriuret Pep 4530 pg/mL Total Protein (6.3-8.2) g/dL Albumin (3.5-5.0) g/dL Disposition Clinical Impression: Congestive heart failure Disposition: ADMITTED IP TO THIS HOSP Condition: Fair
[2017-09-06 17:07] LABS: Basophils % (A) 0 %; Eosinophils # (A) 0.5 k/uL (0-0.7); Eosinophils % (A) 5 %; HCT 45.8 % (39.0-53.0); HGB 15.1 gm/dL (13.0-17.5); Lymphocytes % (A) 31 %; MCH 30.8 pg (25.0-35.0); MCHC 32.9 g/dL (31.0-37.0); MCV 93.6 fL (80.0-100.0); Mean Platelet Volume 8.5; Monocytes # (A) 0.6 k/uL (0-1.0); Monocytes % (A) 6 %; Neutrophils # (A) 5.5 k/uL (1.3-7.7); Neutrophils % (A) 57 %; Platelet Count 165 k/uL (150-450); RDW 13.9 % (11.5-15.5); WBC 9.8 k/uL (3.8-10.6)
[2017-09-06 17:19] LABS: Albumin 3.7 g/dL (3.5-5.0); Calcium 8.8 mg/dL (8.4-10.2); INR 1.1 (<1.2); Magnesium 2.3 mg/dL (1.6-2.3); Partial Thromboplastin Time 25.1 sec (22.0-30.0); Potassium 4.2 mmol/L (3.5-5.1); Total Bilirubin 0.8 mg/dL (0.2-1.3); Total Protein 6.1 g/dL (6.3-8.2)
[2017-09-06 17:34] LABS: Troponin I 0.013 ng/mL (0.000-0.034)
[2017-09-06 17:43] LABS: Creatine Kinase MB 2.7 ng/mL (0.0-2.4)
--- NOTE | 2017-09-06 18:11 | XR ---
EXAMINATION TYPE: XR chest 2V DATE OF EXAM: 09/06/2017 COMPARISON: 04/04/2016 HISTORY: Weakness and chest pain TECHNIQUE: Frontal and lateral views of the chest are obtained. FINDINGS: There is no heart failure. There is some linear density at the left lung base. The other l pete abdi are clear. Thoracic aorta is atheromatous. There is spurring in the thoracic spine. IMPRESSION: There is new subsegmental atelectasis at the left lung base compared to old exam. No hea rt failure.
[2017-09-06] MEDS ORDERED: METOPROLOL TARTRATE 50 MG TAB PO STA (19:36)
[2017-09-06] MEDS ORDERED: NALOXONE 0.4 MG/ML 1 ML VIAL IV PRN (19:47)
[2017-09-06] MEDS ORDERED: FUROSEMIDE 10 MG/ML 2 ML VIAL IV SCH (20:00)
[2017-09-06] MEDS ORDERED: ASPIRIN 81 MG PO STA (20:02)
[2017-09-06 23:12] LABS: Glucose,Whole Blood 146 mg/dL (75-99)
[2017-09-06] MEDS: PRAVASTATIN SODIUM 80 MG TAB PO SCH (23:59)
[2017-09-06] MEDS: INSULIN DETEMIR 100 UNIT/ML 10 ML VIAL SQ SCH (23:59)
[2017-09-06] MEDS: APIXABAN 5 MG TAB PO SCH (23:59)
[2017-09-07] MEDS ORDERED: ADENOSINE 3 MG/ML 2 ML VIAL IVP STA (02:18)
[2017-09-07] MEDS ORDERED: DILTIAZEM DRIP BOLUS FROM BAG 1 MG SOLN IV ONE (02:41)
[2017-09-07] MEDS: DILTIAZEM 50 MG in SODIUM CHLORIDE 0.9% 40 ML IV SCH ×5 (03:05→21:59)
[2017-09-07 06:07] LABS: Glucose,Whole Blood 156 mg/dL (75-99)
[2017-09-07] MEDS: FUROSEMIDE 10 MG/ML 2 ML VIAL IV SCH ×4 (06:30→22:07)
[2017-09-07] MEDS: INSULIN ASPART 100 UNIT/ML 1 ML 10 ML VIAL SQ SCH ×4 (06:30→21:18)
[2017-09-07 06:45] LABS: Calcium 8.4 mg/dL (8.4-10.2); Potassium 4.2 mmol/L (3.5-5.1)
[2017-09-07] MEDS: APIXABAN 5 MG TAB PO SCH ×2 (08:28→20:19)
[2017-09-07] MEDS ORDERED: METOPROLOL TARTRATE 25 MG TAB PO SCH ×3 (09:00→21:00)
[2017-09-07 11:24] LABS: Glucose,Whole Blood 139 mg/dL (75-99)
[2017-09-07] MEDS: LEVOTHYROXINE 25 MCG TAB PO SCH (12:13)
[2017-09-07] MEDS: POTASSIUM CHLORIDE ER 20 MEQ TAB.ER PO SCH (12:14)
[2017-09-07] MEDS: TAMSULOSIN 0.4 MG CAP.ER.24H PO SCH (12:15)
--- NOTE | 2017-09-07 12:26 | ECHOF ---
Referral Reason:CHF MEASUREMENTS -------- HEIGHT: 167.6 cm WEIGHT: 93.4 kg BP: 103/61 RVIDd: 3.3 cm (< 3.3) IVSd: 1.2 cm (0.6 - 1.1) LVIDd: 5.8 cm (3.9 - 5.3) LVPWd: 1.3 cm (0.6 - 1.1) IVSs: 1.6 cm LVIDs: 4.7 cm LVPWs: 1.5 cm LAESV Index (A-L): 44.96 ml/m Ao Diam: 3.4 cm (2.0 - 3.7) AV Cusp: 2.2 cm (1.5 - 2.6) LA Diam: 4.3 cm (2.7 - 3.8) EPSS: 1.3 cm MV E Maykel: 0.99 m/s MV DecT: 199 ms MV A Maykel: 0.24 m/s MV E/A Ratio: 4.10 RAP: 5.00 mmHg RVSP: 41.99 mmHg MV EF SLOPE: 103.74 mm/s (70 - 150) MV EXCURSION: 1.79 cm (> 18.000) FINDINGS -------- Sinus rhythm. This was a technically adequate study. The left ventricular size is normal. There is mild concentric left ventricular hypertrophy. There is moderate global hypokinesis of LV . Overall left ventricular systolic function is moderate-jacqueline rely impaired with, an EF between 30 - 35 %. 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 LA is severely dilated >40 ml/m2 RA appears enlarged. Patent foramen ovale present with left to right shunt. The aortic valve is trileaflet and appears structurally normal. There is no evidence of aortic regu rgitation. There is no evidence of aortic stenosis. The mitral valve leaflets are mildly thickened. Moderate mitral regurgitation is present. [id number] tricuspid regurgitation present. There is mild pulmonary hypertension. The right ventricular systolic pressure, as measured by Doppler, is 41.99mmHg. The pulmonic valve was not well visualized. The aortic root size is normal. IVC Not well visulized. There is no pericardial effusion. CONCLUSIONS -------- 1. Sinus rhythm. 2. This was a technically adequate study. 3. The left ventricular size is normal. 4. There is mild concentric left ventricular hypertrophy. 5. There is moderate global hypokinesis of LV . 6. Overall left ventricular systolic function is moderate-severely impaired with, an EF between 30 - 35 %. 7. The right ventricle is mildly enlarged. 8. LA is severely dilated >40 ml/m2 9. RA appears enlarged. 10. Patent foramen ovale present with left to right shunt. 11. The aortic valve is trileaflet and appears structurally normal. 12. The mitral valve leaflets are mildly thickened. 13. Moderate mitral regurgitation is present. 14. Qghz-bw-[id number] tricuspid regurgitation present. 15. There is mild pulmonary hypertension. 16. The right ventricular systolic pressure, as measured by Doppler, is 41.99mmHg. 17. The pulmonic valve was not well visualized. 18. The aortic root size is normal. 19. IVC Not well visulized. 20. There is no pericardial effusion. PENOLOGY PROFESSOR: Harish Pratt RDCS
--- NOTE | 2017-09-07 14:24 | P.HPIM ---
History of Present Illness H&P Date: 09/07/17 Chief Complaint: Worsening shortness of breath abnormal EKG in office This is a 82-year-old male with a known past medical history of atrial fibrillation anticoagulated with Eliquis, sick sinus syndrome, diabetes mellitus type 2 and BPH. Patient presents to the emergency room after being seen in his PCPs office for worsening shortness of breath and was noted to have abnormal EKG with A. fib RVR and was informed to go to the emergency room for further evaluation and treatment. Patient reports over the last week he's noted at worsening shortness of breath and not feeling well. He's been very weak also having some episodes of chest discomfort. Patient has been admitted to the sixth floor and is currently being treated for congestive heart failure exacerbation on IV Lasix. BNP was 4530. Chest x-ray showing atelectasis in the left lower base. Also was treated for atrophic relation with rapid ventricular response on Cardizem drip. Patient is also having evidence of bilateral lower extremity edema. Troponin was negative. EKG showing intraventricular conduction delay. Cardiology has been consulted. Review of Systems Please refer to HPI otherwise unremarkable Past Medical History Past Medical History: Coronary Artery Disease (CAD), Diabetes Mellitus, Hyperlipidemia, Hypertension Additional Past Medical History / Comment(s): HALLUCINATIONS, DIZZINESS. cardiac arrest palpations cardiac arrest x2 Last Myocardial Infarction Date:: 2014 History of Any Multi-Drug Resistant Organisms: None Reported Past Surgical History: Back Surgery, Heart Catheterization Past Anesthesia/Blood Transfusion Reactions: No Reported Reaction Past Psychological History: No Psychological Hx Reported Smoking Status: Never smoker Past Alcohol Use History: None Reported Past Drug Use History: None Reported - Past Family History Mother Family Medical History: Cancer Brother(s) Family Medical History: Cancer Medications and Allergies Home Medications Medication Instructions Recorded Confirmed Type Potassium Chloride [Klor-Con 20] 20 meq PO QAM 08/15/13 09/06/17 History Furosemide 40 mg PO QAM 08/29/14 09/06/17 History Amiodarone [Cordarone] 100 mg PO DAILY 10/28/15 09/06/17 History Apixaban [Eliquis] 5 mg PO BID 10/28/15 09/06/17 History Dicyclomine [Bentyl] 10 mg PO TID PRN 10/28/15 09/06/17 History Metoprolol Tartrate [Lopressor] 25 mg PO BID 10/28/15 09/06/17 History Pravastatin Sodium [Pravachol] 80 mg PO HS 10/28/15 09/06/17 History Gabapentin [Neurontin] 300 mg PO TID 04/11/16 09/06/17 History Levothyroxine Sodium [Synthroid] 25 mcg PO DAILY 04/11/16 09/06/17 History Enalapril [Vasotec] 20 mg PO DAILY 04/13/16 09/06/17 History Ergocalciferol (Vitamin D2) 50,000 unit PO FR 09/21/16 09/06/17 History [Vitamin D2] Insulin Detemir [Levemir] 52 unit SQ HS 09/21/16 09/06/17 History Tamsulosin [Flomax] 0.4 mg PO DAILY 09/27/16 09/06/17 History Insulin Aspart [Novolog Flexpen] 7 unit SQ AC-TID 09/06/17 09/06/17 History Allergies Allergy/AdvReac Type Severity Reaction Status Date / Time No Known Allergies Allergy Verified 09/06/17 16:43 Physical Exam Vitals: Vital Signs Temp Pulse Pulse Resp BP BP Pulse Ox 09/07/17 10:39 74 09/07/17 10:31 74 09/07/17 08:26 96 09/07/17 08:20 97.6 F 102 H 18 115/69 96 09/07/17 04:15 72 103/61 09/07/17 03:30 95 105/58 09/07/17 03:10 98 121/67 09/07/17 03:00 97.6 F 147 H 18 109/75 94 L 09/06/17 23:00 97.3 F L 125 H 20 103/74 94 L 09/06/17 21:00 98.6 F 106 H 20 104/70 98 09/06/17 20:00 96 20 113/66 96 09/06/17 19:00 116 H 20 120/78 96 09/06/17 18:00 96 20 112/57 97 09/06/17 17:02 110 H 20 119/56 99 09/06/17 16:02 97.5 F L 41 L 18 117/59 94 L Intake and Output 09/06/17 09/07/17 09/07/17 22:59 06:59 14:59 Intake Total 121.667 240 Balance 121.667 240 Intake: Intake, IV Titration 21.667 Amount Diltiazem 50 mg In Sodium 21.667 Chloride 0.9% 40 ml @ 10 MG/HR 10 mls/hr IV .Q5H [facility] Rx#:[id number] Oral 100 240 Other: Voiding Method Urinal Urinal # Voids 1 Weight 93.894 kg 93.44 kg Head normocephalic Neck supple Lungs crackles at bases bilaterally Heart regular rate and rhythm S1-S2, no rub or gallop Abdomen is soft nontender nondistended positive bowel sounds no hepatosplenomegaly Extremities +1 to +2 pitting edema bilateral lower extremity ankle area Neuro alert and orientated to 3 Results CBC & Chem 7: 09/06/17 16:55 09/07/17 06:01 Labs: Abnormal Lab Results - Last 24 Hours (Table) 09/06/17 09/06/17 09/06/17 Range/Units 16:55 16:55 23:08 Chloride (98-107) mmol/L BUN 32 H (9-20) mg/dL Creatinine 1.38 H (0.66-1.25) mg/dL Glucose 65 L (74-99) mg/dL POC Glucose (mg/dL) 146 H (75-99) mg/dL CK-MB (CK-2) 2.7 H* (0.0-2.4) ng/mL Total Protein 6.1 L (6.3-8.2) g/dL 09/07/17 09/07/17 09/07/17 Range/Units 05:58 06:01 11:21 Chloride 112 H (98-107) mmol/L BUN 31 H (9-20) mg/dL Creatinine 1.26 H (0.66-1.25) mg/dL Glucose 132 H (74-99) mg/dL POC Glucose (mg/dL) 156 H 139 H (75-99) mg/dL CK-MB (CK-2) (0.0-2.4) ng/mL Total Protein (6.3-8.2) g/dL Thrombosis Risk Factor Assmnt - Choose All That Apply Any of the Below Risk Factors Present?: Yes Each Factor Represents 1 point: Obesity (BMI >25) Other Risk Factors: Yes Each Risk Factor Represents 3 Points: Age 75 years or older Other congenital or acquired thrombophilia - If yes, enter type in comment: No Thrombosis Risk Factor Assessment Total Risk Factor Score: 4 Thrombosis Risk Factor Assessment Level: Moderate Risk Assessment and Plan Assessment: 1. Acute on chronic systolic CHF exacerbation: Echo shows an EF of 30-35%. Patient did have elevated BNP on admission started on IV Lasix. Cardiology following 2. Atrial fibrillation with rapid ventricular response: Patient on Cardizem drip. Cardiology consulted. He is anticoagulated with Eliquis. 3. Diabetes mellitus type 2: Insulin-dependent. Resume Levemir and sliding scale coverage 4. Essential hypertension 5. Hypothyroidism TSH level normal. Continue Synthroid 6. Hyperlipidemia continue Pravachol 7. BPH continue Flomax GI prophylaxis Pepcid and DVT prophylaxis Eliquis Time with Patient: Greater than 30 (Greater than 60% of the total time spent in counseling and coordination of care.I performed an examination of the patient and discussed their management with the physician [employer]. I have reviewed the Physician [employer]'s notes and agree with the documented findings and plan of care)
[2017-09-07 14:31] VITALS: BMI 33.2
[2017-09-07] MEDS: METOPROLOL TARTRATE 25 MG TAB PO SCH ×2 (15:07→21:18)
[2017-09-07] MEDS: GABAPENTIN 300 MG CAP PO SCH ×2 (15:07→21:18)
--- NOTE | 2017-09-07 15:13 | P.CRDCN ---
History of Present Illness Consult date: 09/07/17 Chief complaint: shortness of breath History of present illness: This is a pleasant 82-year-old gentleman who sees as an outpatient with a past medical history significant forchronic atrial fibrillation on oral anticoagulation, as well as diabetes, presented to the hospital complaining of shortness of breath. The patient symptoms started about a week ago with a worsening exertional dyspnea without orthopnea and without any PND. No cough him a no fever or chills, and no chest pain or chest discomfort, dizziness or lightheadedness,feeling of heart racing or fluttering, or syncope. he stated that he did gain significant amount of weight lately. He did develop severe bilateral lower extremities edema. When the patient presented to the emergency room he was diagnosed was congestive heart failure exacerbation and also he was found to be in A. fib with RVR. The chest x-ray did not show any acute abnormalities.the EKG showed atrial fibrillation with interventricular conduction delay and nonspecific changes. the BNP came in to be around 5000. The first set of troponin was checked and came in to be unremarkable. The patient is not aware of any history of coronary artery disease or congestive heart failure but he does have history of chronic atrial fibrillation on oral anticoagulation. He stated that normally he does not follow a good diet but he does take his medications on regular basis.the patient underwent an echocardiogram and that revealed severe cardiomyopathy with an ejection fraction around 35%. Currently the patient is on Cardizem at 10 mg per hour and he is on metoprolol 25 mg by mouth twice a day and he is on oral anticoagulation. I am going to increase the dose of metoprolol to 25 mg by mouth 3 times a day, try to get rid of the Cardizem in view of the cardiomyopathy, add small dose of DAYRON inhibitor to current medical regimen and also add Aldactone in view of the severe cardiomyopathy. I will obtain the previous medical records from the office to assess if this cardiomyopathy known from before or new. Past Medical History Past Medical History: Coronary Artery Disease (CAD), Diabetes Mellitus, Hyperlipidemia, Hypertension Additional Past Medical History / Comment(s): HALLUCINATIONS, DIZZINESS. cardiac arrest palpations Last Myocardial Infarction Date:: 2014 History of Any Multi-Drug Resistant Organisms: None Reported Past Surgical History: Back Surgery, Heart Catheterization Past Anesthesia/Blood Transfusion Reactions: No Reported Reaction Past Psychological History: No Psychological Hx Reported Smoking Status: Never smoker Past Alcohol Use History: None Reported Past Drug Use History: None Reported - Past Family History Mother Family Medical History: Cancer Brother(s) Family Medical History: Cancer Medications and Allergies Home Medications Medication Instructions Recorded Confirmed Type Potassium Chloride [Klor-Con 20] 20 meq PO QAM 08/15/13 09/06/17 History Furosemide 40 mg PO QAM 08/29/14 09/06/17 History Amiodarone [Cordarone] 100 mg PO DAILY 10/28/15 09/06/17 History Apixaban [Eliquis] 5 mg PO BID 10/28/15 09/06/17 History Dicyclomine [Bentyl] 10 mg PO TID PRN 10/28/15 09/06/17 History Metoprolol Tartrate [Lopressor] 25 mg PO BID 10/28/15 09/06/17 History Pravastatin Sodium [Pravachol] 80 mg PO HS 10/28/15 09/06/17 History Gabapentin [Neurontin] 300 mg PO TID 04/11/16 09/06/17 History Levothyroxine Sodium [Synthroid] 25 mcg PO DAILY 04/11/16 09/06/17 History Enalapril [Vasotec] 20 mg PO DAILY 04/13/16 09/06/17 History Ergocalciferol (Vitamin D2) 50,000 unit PO FR 09/21/16 09/06/17 History [Vitamin D2] Insulin Detemir [Levemir] 52 unit SQ HS 09/21/16 09/06/17 History Tamsulosin [Flomax] 0.4 mg PO DAILY 09/27/16 09/06/17 History Insulin Aspart [Novolog Flexpen] 7 unit SQ AC-TID 09/06/17 09/06/17 History Allergies Allergy/AdvReac Type Severity Reaction Status Date / Time No Known Allergies Allergy Verified 09/06/17 16:43 Physical Exam Vitals: Vital Signs Temp Pulse Pulse Resp BP BP Pulse Ox 09/07/17 11:10 97.9 F 73 18 112/69 96 09/07/17 10:39 74 09/07/17 10:31 74 09/07/17 08:26 96 09/07/17 08:20 97.6 F 102 H 18 115/69 96 09/07/17 04:15 72 103/61 09/07/17 03:30 95 105/58 09/07/17 03:10 98 121/67 09/07/17 03:00 97.6 F 147 H 18 109/75 94 L 09/06/17 23:00 97.3 F L 125 H 20 103/74 94 L 09/06/17 21:00 98.6 F 106 H 20 104/70 98 09/06/17 20:00 96 20 113/66 96 09/06/17 19:00 116 H 20 120/78 96 09/06/17 18:00 96 20 112/57 97 09/06/17 17:02 110 H 20 119/56 99 09/06/17 16:02 97.5 F L 41 L 18 117/59 94 L Intake and Output 09/07/17 09/07/17 09/07/17 06:59 14:59 22:59 Intake Total 121.667 530 Balance 121.667 530 Intake: Intake, IV Titration 21.667 50 Amount Diltiazem 50 mg In Sodium 21.667 50 Chloride 0.9% 40 ml @ 10 MG/HR 10 mls/hr IV .Q5H [facility] Rx#:[id number] Oral 100 480 Other: Voiding Method Urinal Urinal # Voids 1 Weight 93.44 kg 93.44 kg - Constitutional General appearance: no acute distress - Respiratory Respiratory: bilateral: rhonchi - Cardiovascular Rhythm: irregularly irregular Heart sounds: normal: S1, S2 Results 09/06/17 16:55 09/07/17 06:01 Cardiac Enzymes 09/06/17 09/06/17 Range/Units 16:55 16:55 AST 25 (17-59) U/L CK-MB (CK-2) 2.7 H* (0.0-2.4) ng/mL Troponin I 0.013 (0.000-0.034) ng/mL Coagulation 09/06/17 Range/Units 16:55 PT 11.0 (9.0-12.0) sec APTT 25.1 (22.0-30.0) sec CBC 09/06/17 Range/Units 16:55 WBC 9.8 (3.8-10.6) k/uL RBC 4.90 (4.30-5.90) m/uL Hgb 15.1 (13.0-17.5) gm/dL Hct 45.8 (39.0-53.0) % Plt Count 165 (150-450) k/uL Comprehensive Metabolic Panel 09/06/17 09/07/17 Range/Units 16:55 06:01 Sodium 143 142 (137-145) mmol/L Potassium 4.2 4.2 (3.5-5.1) mmol/L Chloride 107 112 H (98-107) mmol/L Carbon Dioxide 27 24 (22-30) mmol/L BUN 32 H 31 H (9-20) mg/dL Creatinine 1.38 H 1.26 H (0.66-1.25) mg/dL Glucose 65 L 132 H (74-99) mg/dL Calcium 8.8 8.4 (8.4-10.2) mg/dL AST 25 (17-59) U/L ALT 36 (21-72) U/L Alkaline Phosphatase 77 (38-126) U/L Total Protein 6.1 L (6.3-8.2) g/dL Albumin 3.7 (3.5-5.0) g/dL Current Medications Generic Name Dose Route Start Last Admin Trade Name Freq PRN Reason Stop Dose Admin Apixaban 5 mg 09/06/17 23:45 09/07/17 08:28 Eliquis PO 5 mg BID [facility] Administration Ergocalciferol 50,000 unit 09/08/17 12:00 Vitamin D2 PO FR [facility] Famotidine 20 mg 09/08/17 09:00 Pepcid PO DAILY [facility] Furosemide 20 mg 09/06/17 23:00 09/07/17 06:30 Lasix IV 20 mg Q8H [facility] Administration Gabapentin 300 mg 09/07/17 16:00 Neurontin PO TID [facility] Diltiazem HCl 50 mg/ Sodium 50 mls @ 10 mls/hr 09/07/17 02:45 09/07/17 11:07 Chloride IV 10 mg/hr .Q5H [facility] 10 mls/hr Administration 10 MG/HR Insulin Aspart 0 unit 09/07/17 07:30 09/07/17 12:15 Novolog SQ 1 unit ACHS [facility] Administration Protocol Insulin Detemir 52 unit 09/06/17 23:45 09/06/17 23:59 Levemir SQ 52 unit HS [facility] Administration Levothyroxine Sodium 25 mcg 09/07/17 11:45 09/07/17 12:13 Synthroid PO 25 mcg DAILY@0630 [facility] Administration Lisinopril 2.5 mg 09/08/17 09:00 Zestril PO DAILY [facility] Metoprolol Tartrate 25 mg 09/07/17 16:00 Lopressor PO TID [facility] Naloxone HCl 0.2 mg 09/06/17 19:47 Narcan IV Q2M PRN Opioid Reversal Potassium Chloride 20 meq 09/07/17 11:45 09/07/17 12:14 K-Dur 20 PO 20 meq QAM [facility] Administration Pravastatin Sodium 80 mg 09/06/17 23:45 09/06/17 23:59 Pravachol PO 80 mg HS [facility] Administration Spironolactone 25 mg 09/08/17 09:00 Aldactone PO DAILY [facility] Tamsulosin HCl 0.4 mg 09/07/17 11:45 09/07/17 12:15 Flomax PO 0.4 mg DAILY [facility] Administration Intake and Output 09/07/17 09/07/17 09/07/17 06:59 14:59 22:59 Intake Total 121.667 530 Balance 121.667 530 Intake: Intake, IV Titration 21.667 50 Amount Diltiazem 50 mg In Sodium 21.667 50 Chloride 0.9% 40 ml @ 10 MG/HR 10 mls/hr IV .Q5H [facility] Rx#:[id number] Oral 100 480 Other: Voiding Method Urinal Urinal # Voids 1 Weight 93.44 kg 93.44 kg Patient Weight 09/08/17 06:59 Weight 93.44 kg 09/06/17 16:55 09/07/17 06:01 Assessment and Plan Assessment: assessment #1 congestive heart failure exacerbation secondary to systolic dysfunction. #2 atrial fibrillation with RVR #3 known chronic atrial fibrillation on oral anticoagulation #4 severe cardiomyopathy and known if this is ischemic or nonischemic #5 diabetes Plan #1 continue the current dose of Lasix IV. #2 add Aldactone and lisinopril to the current medical regimen #3 increase the dose of metoprolol to 25 mg by mouth 3 times a day #4 right to wean him from the Cardizem drip #5 follow-up with the patient. We will continue following up with him and thank you for allowing us participate in his care
[2017-09-07 16:56] LABS: Glucose,Whole Blood 206 mg/dL (75-99)
[2017-09-07] MEDS: PRAVASTATIN SODIUM 80 MG TAB PO SCH (20:19)
[2017-09-07 20:32] LABS: Glucose,Whole Blood 142 mg/dL (75-99)
[2017-09-07] MEDS: INSULIN DETEMIR 100 UNIT/ML 10 ML VIAL SQ SCH (21:18)
[2017-09-08] MEDS: DILTIAZEM 50 MG in SODIUM CHLORIDE 0.9% 40 ML IV SCH ×3 (05:12→19:36)
[2017-09-08 05:36] LABS: Glucose,Whole Blood 77 mg/dL (75-99)
[2017-09-08] MEDS: INSULIN ASPART 100 UNIT/ML 1 ML 10 ML VIAL SQ SCH ×6 (05:50→21:17)
[2017-09-08 06:03] LABS: Basophils % (A) 0 %; Eosinophils # (A) 0.6 k/uL (0-0.7); Eosinophils % (A) 6 %; HCT 44.8 % (39.0-53.0); HGB 14.8 gm/dL (13.0-17.5); Lymphocytes # (A) 2.2 k/uL (1.0-4.8); Lymphocytes % (A) 22 %; MCH 31.2 pg (25.0-35.0); MCV 94.7 fL (80.0-100.0); Mean Platelet Volume 8.3; Monocytes # (A) 0.7 k/uL (0-1.0); Monocytes % (A) 8 %; Neutrophils # (A) 6.2 k/uL (1.3-7.7); Neutrophils % (A) 63 %; Platelet Count 153 k/uL (150-450); RBC 4.73 m/uL (4.30-5.90); RDW 14.2 % (11.5-15.5); WBC 9.9 k/uL (3.8-10.6)
[2017-09-08] MEDS: LEVOTHYROXINE 25 MCG TAB PO SCH (06:10)
[2017-09-08] MEDS: FUROSEMIDE 10 MG/ML 2 ML VIAL IV SCH ×3 (06:10→22:06)
[2017-09-08 06:31] LABS: Albumin 3.3 g/dL (3.5-5.0); Calcium 8.7 mg/dL (8.4-10.2); Total Bilirubin 0.7 mg/dL (0.2-1.3); Total Protein 5.6 g/dL (6.3-8.2)
[2017-09-08] MEDS: METOPROLOL TARTRATE 25 MG TAB PO SCH (06:41)
[2017-09-08] MEDS: POTASSIUM CHLORIDE ER 20 MEQ TAB.ER PO SCH (08:01)
[2017-09-08] MEDS: FAMOTIDINE 20 MG TAB PO SCH (08:01)
[2017-09-08] MEDS: APIXABAN 5 MG TAB PO SCH ×2 (08:01→20:13)
[2017-09-08] MEDS: SPIRONOLACTONE 25 MG TAB PO SCH (08:01)
[2017-09-08] MEDS: LISINOPRIL 2.5 MG TAB PO SCH (08:01)
[2017-09-08] MEDS: TAMSULOSIN 0.4 MG CAP.ER.24H PO SCH (08:01)
[2017-09-08] MEDS: GABAPENTIN 300 MG CAP PO SCH ×3 (08:01→21:06)
[2017-09-08] MEDS ORDERED: HYDROcodone/APAP 5-325MG 1 EACH TAB PO PRN (09:04)
--- NOTE | 2017-09-08 10:18 | P.PN ---
Subjective Progress Note Date: 09/08/17 This is a 82-year-old male with a known past medical history of atrial fibrillation anticoagulated with Eliquis, sick sinus syndrome, diabetes mellitus type 2 and BPH. Patient presents to the emergency room after being seen in his PCPs office for worsening shortness of breath and was noted to have abnormal EKG with Conner mulligan RVR and was informed to go to the emergency room for further evaluation and treatment. Patient reports over the last week he's noted at worsening shortness of breath and not feeling well. He's been very weak also having some episodes of chest discomfort. Patient has been admitted to the sixth floor and is currently being treated for congestive heart failure exacerbation on IV Lasix. BNP was 4530. Chest x-ray showing atelectasis in the left lower base. Also was treated for atrophic relation with rapid ventricular response on Cardizem drip. Patient is also having evidence of bilateral lower extremity edema. Troponin was negative. EKG showing intraventricular conduction delay. Cardiology has been consulted. 09/08/2017 patient had an episode of SVT last night. He received adenosine and was restarted on a Cardizem drip. Discussed with cardiology this morning we'll resume patient's home amiodarone 100 mg daily. Patient remains on IV Lasix he' s had decrease in his weight from 93 kg to 91.1 kg. Creatinine has decreased from 1.26-1.17. He denies any chest pain or worsening shortness of breath. Denies any heart palpitations. Denies any nausea or vomiting. He is complaining of lower back pain and pain radiating down his legs bilaterally. This is not new for patient. He has been seen by Dr. Cruz outpatient a few months ago. And had x-rays completed. Patient has also had previous back surgeries to this area. Denies any new injury. [place] will be added. Objective - Vital Signs Vital signs: Vital Signs Temp 98.1 F 09/08/17 08:00 Pulse 122 H 09/08/17 08:00 Resp 16 09/08/17 08:00 BP 112/64 09/08/17 08:00 Pulse Ox 95 09/08/17 08:00 Intake & Output 09/07/17 09/08/17 09/08/17 18:59 06:59 18:59 Intake Total 1455 300 240 Output Total 550 Balance 905 300 240 Weight 93.44 kg 91.1 kg Intake: IV 275 Diltiazem 50 mg In Sodium 85 Chloride 0.9% 40 ml @ 10 MG/HR 10 mls/hr IV .Q5H [facility] Rx#:[id number] Invasive Line 1 10 Sodium Chloride 0.9% 500 180 ml @ 999 mls/hr IV .Q31M [facility] Rx#:[id number] Intake, IV Titration 100 Amount Diltiazem 50 mg In Sodium 100 Chloride 0.9% 40 ml @ 10 MG/HR 10 mls/hr IV .Q5H [facility] Rx#:[id number] Oral 1080 300 240 Output: Urine 550 Other: Voiding Method Urinal Urinal # Voids 2 2 - Exam Head normocephalic Neck supple Lungs clear to auscultation bilaterally no wheezing or crackles Heart irregular Abdomen is soft nontender nondistended positive bowel sounds no hepatosplenomegaly Extremities +1 edema bilateral lower extremities Neuro alert and orientated to 3 - Labs CBC & Chem 7: 09/08/17 05:46 09/08/17 05:46 Labs: Abnormal Lab Results - Last 24 Hours (Table) 09/07/17 09/07/17 09/07/17 Range/Units 11:21 16:53 20:30 Chloride (98-107) mmol/L BUN (9-20) mg/dL Glucose (74-99) mg/dL POC Glucose (mg/dL) 139 H 206 H 142 H (75-99) mg/dL Total Protein (6.3-8.2) g/dL Albumin (3.5-5.0) g/dL 09/08/17 Range/Units 05:46 Chloride 111 H (98-107) mmol/L BUN 29 H (9-20) mg/dL Glucose 72 L (74-99) mg/dL POC Glucose (mg/dL) (75-99) mg/dL Total Protein 5.6 L (6.3-8.2) g/dL Albumin 3.3 L (3.5-5.0) g/dL Assessment and Plan Assessment: 1. Acute on chronic systolic CHF exacerbation: Echo shows an EF of 30-35%. Patient did have elevated BNP on admission. Followed by cardiology. Remains on IV Lasix. Patient has decrease in weight from 93-91.1 kg 2. Atrial fibrillation with rapid ventricular response: Patient on Cardizem drip. Cardiology consulted. He is anticoagulated with Eliquis. Restart patient's amiodarone. Continue his metoprolol. TSH normal. 3. Diabetes mellitus type 2: Insulin-dependent. Resume Levemir and sliding scale coverage 4. Essential hypertension 5. Hypothyroidism TSH level normal. Continue Synthroid 6. Hyperlipidemia continue Pravachol 7. BPH continue Flomax 8. Episode of SVT: Patient received adenosine and currently on Cardizem drip. Await further cardiology recommendations 10. Chronic back pain with previous back surgery. Place patient on [place] 5 one every 4 hours as needed to help with pain control GI prophylaxis Pepcid and DVT prophylaxis Eliquis I performed an examination of the patient and discussed their management with the physician Home Administrator. I have reviewed the Physician Home Administrator's notes and agree with the documented findings and plan of care
[2017-09-08] MEDS: AMIODARONE 100 MG TAB PO SCH (10:43)
--- NOTE | 2017-09-08 11:24 | P.PN ---
Subjective Progress Note Date: 09/08/17 Principal diagnosis: Atrial fibrillation with RVR This is a pleasant 82-year-old gentleman who sees as an outpatient with a past medical history significant forchronic atrial fibrillation on oral anticoagulation, as well as diabetes, presented to the hospital complaining of shortness of breath. The patient symptoms started about a week ago with a worsening exertional dyspnea without orthopnea and without any PND. No cough him a no fever or chills, and no chest pain or chest discomfort, dizziness or lightheadedness,feeling of heart racing or fluttering, or syncope. he stated that he did gain significant amount of weight lately. He did develop severe bilateral lower extremities edema. When the patient presented to the emergency room he was diagnosed was congestive heart failure exacerbation and also he was found to be in A. fib with RVR. The chest x-ray did not show any acute abnormalities.the EKG showed atrial fibrillation with interventricular conduction delay and nonspecific changes. the BNP came in to be around 5000. The first set of troponin was checked and came in to be unremarkable. The patient is not aware of any history of coronary artery disease or congestive heart failure but he does have history of chronic atrial fibrillation on oral anticoagulation. He stated that normally he does not follow a good diet but he does take his medications on regular basis.the patient underwent an echocardiogram and that revealed severe cardiomyopathy with an ejection fraction around 35%. On follow-up with the patient today, September [id number], she is feeling overall better. The lower extremities edema is better. The patient did lose 2 kg since she was admitted to the hospital yesterday. She continues to be on IV Lasix and the creatinine continues to be stable. She continues to be in atrial fibrillation with slightly uncontrolled heart rate and I am going to increase the dose of metoprolol for better heart rate control. The echocardiogram revealed severe cardiomyopathy. I did start the patient yesterday on Aldactone as well as lisinopril. Objective - Vital Signs Vital signs: Vital Signs Temp 98.1 F 09/08/17 08:00 Pulse 122 H 09/08/17 08:00 Resp 16 09/08/17 08:00 BP 112/64 09/08/17 08:00 Pulse Ox 95 09/08/17 08:00 Intake & Output 09/07/17 09/08/17 09/08/17 18:59 06:59 18:59 Intake Total 1455 300 240 Output Total 550 Balance 905 300 240 Weight 93.44 kg 91.1 kg Intake: IV 275 Diltiazem 50 mg In Sodium 85 Chloride 0.9% 40 ml @ 10 MG/HR 10 mls/hr IV .Q5H [facility] Rx#:[id number] Invasive Line 1 10 Sodium Chloride 0.9% 500 180 ml @ 999 mls/hr IV .Q31M [facility] Rx#:[id number] Intake, IV Titration 100 Amount Diltiazem 50 mg In Sodium 100 Chloride 0.9% 40 ml @ 10 MG/HR 10 mls/hr IV .Q5H [facility] Rx#:[id number] Oral 1080 300 240 Output: Urine 550 Other: Voiding Method Urinal Urinal # Voids 2 2 - Constitutional General appearance: Present: no acute distress - Respiratory Respiratory: bilateral: diminished - Cardiovascular Rhythm: irregularly irregular Heart sounds: normal: S1, S2 - Labs CBC & Chem 7: 09/08/17 05:46 09/08/17 05:46 Labs: Abnormal Lab Results - Last 24 Hours (Table) 09/07/17 09/07/17 09/07/17 Range/Units 11:21 16:53 20:30 Chloride (98-107) mmol/L BUN (9-20) mg/dL Glucose (74-99) mg/dL POC Glucose (mg/dL) 139 H 206 H 142 H (75-99) mg/dL Total Protein (6.3-8.2) g/dL Albumin (3.5-5.0) g/dL 09/08/17 Range/Units 05:46 Chloride 111 H (98-107) mmol/L BUN 29 H (9-20) mg/dL Glucose 72 L (74-99) mg/dL POC Glucose (mg/dL) (75-99) mg/dL Total Protein 5.6 L (6.3-8.2) g/dL Albumin 3.3 L (3.5-5.0) g/dL Assessment and Plan Assessment: assessment #1 congestive heart failure exacerbation secondary to systolic dysfunction. #2 atrial fibrillation with RVR #3 known chronic atrial fibrillation on oral anticoagulation #4 severe cardiomyopathy and known if this is ischemic or nonischemic #5 diabetes Plan #1 continue the current dose of Lasix IV. #2 continue the lisinopril and continue Aldactone for the cardiomyopathy #3 increase the dose of metoprolol to 25 mg by mouth 3 times a day #4 follow-up with the patient We will continue following up with him and thank you for allowing us participate in his care
[2017-09-08 11:33] LABS: Glucose,Whole Blood 503 mg/dL (75-99)
[2017-09-08] MEDS ORDERED: ERGOCALCIFEROL 50,000 UNIT CAP PO SCH (12:00)
--- NOTE | 2017-09-08 12:13 | P.PN ---
Subjective Progress Note Date: 09/08/17 Principal diagnosis: Atrial fibrillation with RVR This is a pleasant 82-year-old gentleman who sees as an outpatient with a past medical history significant forchronic atrial fibrillation on oral anticoagulation, as well as diabetes, presented to the hospital complaining of shortness of breath. The patient symptoms started about a week ago with a worsening exertional dyspnea without orthopnea and without any PND. No cough him a no fever or chills, and no chest pain or chest discomfort, dizziness or lightheadedness,feeling of heart racing or fluttering, or syncope. he stated that he did gain significant amount of weight lately. He did develop severe bilateral lower extremities edema. When the patient presented to the emergency room he was diagnosed was congestive heart failure exacerbation and also he was found to be in A. fib with RVR. The chest x-ray did not show any acute abnormalities.the EKG showed atrial fibrillation with interventricular conduction delay and nonspecific changes. the BNP came in to be around 5000. The first set of troponin was checked and came in to be unremarkable. The patient is not aware of any history of coronary artery disease or congestive heart failure but he does have history of chronic atrial fibrillation on oral anticoagulation. He stated that normally he does not follow a good diet but he does take his medications on regular basis.the patient underwent an echocardiogram and that revealed severe cardiomyopathy with an ejection fraction around 35%. On follow-up with the patient today, September [id number], he is feeling overall better. The lower extremities edema is better. The patient did lose 2 kg since she was admitted to the hospital yesterday. He continues to be on IV Lasix and the creatinine continues to be stable. He continues to be in atrial fibrillation with slightly uncontrolled heart rate and I am going to increase the dose of metoprolol for better heart rate control. The echocardiogram revealed severe cardiomyopathy. I did start the patient yesterday on Aldactone as well as lisinopril. Objective - Vital Signs Vital signs: Vital Signs Temp 98.1 F 09/08/17 08:00 Pulse 122 H 09/08/17 08:00 Resp 16 09/08/17 08:00 BP 112/64 09/08/17 08:00 Pulse Ox 95 09/08/17 08:00 Intake & Output 09/07/17 09/08/17 09/08/17 18:59 06:59 18:59 Intake Total 1455 300 240 Output Total 550 Balance 905 300 240 Weight 93.44 kg 91.1 kg Intake: IV 275 Diltiazem 50 mg In Sodium 85 Chloride 0.9% 40 ml @ 10 MG/HR 10 mls/hr IV .Q5H [facility] Rx#:[id number] Invasive Line 1 10 Sodium Chloride 0.9% 500 180 ml @ 999 mls/hr IV .Q31M [facility] Rx#:[id number] Intake, IV Titration 100 Amount Diltiazem 50 mg In Sodium 100 Chloride 0.9% 40 ml @ 10 MG/HR 10 mls/hr IV .Q5H [facility] Rx#:[id number] Oral 1080 300 240 Output: Urine 550 Other: Voiding Method Urinal Urinal # Voids 2 2 - Constitutional General appearance: Present: no acute distress - Respiratory Respiratory: bilateral: rales - Cardiovascular Rhythm: irregularly irregular Heart sounds: normal: S1, S2 - Labs CBC & Chem 7: 09/08/17 05:46 09/08/17 05:46 Labs: Abnormal Lab Results - Last 24 Hours (Table) 09/07/17 09/07/17 09/08/17 Range/Units 16:53 20:30 05:46 Chloride 111 H (98-107) mmol/L BUN 29 H (9-20) mg/dL Glucose 72 L (74-99) mg/dL POC Glucose (mg/dL) 206 H 142 H (75-99) mg/dL Total Protein 5.6 L (6.3-8.2) g/dL Albumin 3.3 L (3.5-5.0) g/dL 09/08/17 Range/Units 11:28 Chloride (98-107) mmol/L BUN (9-20) mg/dL Glucose (74-99) mg/dL POC Glucose (mg/dL) 503 H (75-99) mg/dL Total Protein (6.3-8.2) g/dL Albumin (3.5-5.0) g/dL Assessment and Plan Assessment: assessment #1 congestive heart failure exacerbation secondary to systolic dysfunction. #2 atrial fibrillation with RVR #3 known chronic atrial fibrillation on oral anticoagulation #4 severe cardiomyopathy and known if this is ischemic or nonischemic #5 diabetes Plan #1 continue the current dose of Lasix IV. #2 continue the lisinopril and continue Aldactone for the cardiomyopathy #3 increase the dose of metoprolol to 50 mg by mouth 3 times a day #4 follow-up with the patient We will continue following up with him and thank you for allowing us participate in his care
[2017-09-08 13:16] LABS: Glucose,Whole Blood 198 mg/dL (75-99)
[2017-09-08] MEDS: METOPROLOL TARTRATE 50 MG TAB PO SCH ×2 (14:36→21:06)
[2017-09-08] MEDS ORDERED: DEXTROSE 5% IN WATER 250 ML with AMIODARONE 300 MG IV ONE (16:00)
[2017-09-08 16:24] LABS: Glucose,Whole Blood 118 mg/dL (75-99)
[2017-09-08] MEDS: PRAVASTATIN SODIUM 80 MG TAB PO SCH (20:13)
[2017-09-08 21:17] LABS: Glucose,Whole Blood 74 mg/dL (75-99)
[2017-09-08] MEDS: INSULIN DETEMIR 100 UNIT/ML 10 ML VIAL SQ SCH (21:23)
[2017-09-09 05:56] LABS: Glucose,Whole Blood 65 mg/dL (75-99)
[2017-09-09] MEDS: INSULIN ASPART 100 UNIT/ML 1 ML 10 ML VIAL SQ SCH ×4 (06:05→12:32)
[2017-09-09] MEDS: FUROSEMIDE 10 MG/ML 2 ML VIAL IV SCH (06:08)
[2017-09-09] MEDS: LEVOTHYROXINE 25 MCG TAB PO SCH (06:08)
[2017-09-09 06:13] LABS: Glucose,Whole Blood 89 mg/dL (75-99)
[2017-09-09 06:50] LABS: Basophils % (A) 1 %; Eosinophils # (A) 0.5 k/uL (0-0.7); Eosinophils % (A) 5 %; HCT 45.6 % (39.0-53.0); HGB 14.8 gm/dL (13.0-17.5); Lymphocytes # (A) 2.2 k/uL (1.0-4.8); Lymphocytes % (A) 25 %; MCHC 32.4 g/dL (31.0-37.0); MCV 95.6 fL (80.0-100.0); Mean Platelet Volume 8.5; Monocytes # (A) 0.5 k/uL (0-1.0); Monocytes % (A) 6 %; Neutrophils # (A) 5.4 k/uL (1.3-7.7); Neutrophils % (A) 62 %; Platelet Count 153 k/uL (150-450); RBC 4.77 m/uL (4.30-5.90); RDW 14.1 % (11.5-15.5); WBC 8.7 k/uL (3.8-10.6)
[2017-09-09 07:11] LABS: Albumin 3.5 g/dL (3.5-5.0); Calcium 8.6 mg/dL (8.4-10.2); Potassium 4.4 mmol/L (3.5-5.1); Total Protein 5.8 g/dL (6.3-8.2)
[2017-09-09] MEDS: AMIODARONE 100 MG TAB PO SCH (08:41)
[2017-09-09] MEDS: FAMOTIDINE 20 MG TAB PO SCH (08:41)
[2017-09-09] MEDS: APIXABAN 5 MG TAB PO SCH (08:41)
[2017-09-09] MEDS: METOPROLOL TARTRATE 50 MG TAB PO SCH (08:42)
[2017-09-09] MEDS: POTASSIUM CHLORIDE ER 20 MEQ TAB.ER PO SCH (08:42)
[2017-09-09] MEDS: LISINOPRIL 2.5 MG TAB PO SCH (08:42)
[2017-09-09] MEDS: TAMSULOSIN 0.4 MG CAP.ER.24H PO SCH (08:42)
[2017-09-09] MEDS: SPIRONOLACTONE 25 MG TAB PO SCH (08:42)
[2017-09-09] MEDS: GABAPENTIN 300 MG CAP PO SCH (08:42)
[2017-09-09 11:26] LABS: Glucose,Whole Blood 214 mg/dL (75-99)
[2017-09-09 12:17] VITALS: BP 98/61; PULSE 51; RESP 18; TEMP 97.2
--- NOTE | 2017-09-09 13:59 | XR ---
EXAMINATION TYPE: XR chest 2V DATE OF EXAM: 09/09/2017 HISTORY: f/u chf. REFERENCE: Previous study dated 09/06/2017. FINDINGS: There is some platelike atelectasis at the lung bases bilaterally. The lungs are otherwise clear. Heart size is upper limits of normal. Pulmonary vasculature is normal. Pleural spaces are carmine r. IMPRESSION: AREAS OF PLATELIKE ATELECTASIS, BOTH LUNGS.
--- NOTE | 2017-09-09 14:34 | P.DS ---
Providers Date of admission: 09/06/17 19:47 Expected date of discharge: 09/09/17 Attending physician: Orlando Toney Consults: 09/06/17 23:39 Consult Physician Urgent Consulting Provider: Oniel Lane Consult Reason/Comments: irregular heart rythm Do you want consulting provider notified?: Yes, Notify in am Primary care physician: Orlando [facility] Course: Diagnoses on discharge: 1. Acute on chronic systolic CHF exacerbation: Echo shows an EF of 30-35%. Patient did have elevated BNP on admission started on IV Lasix. Cardiology following 2. Atrial fibrillation with rapid ventricular response: Patient on Cardizem drip. Cardiology consulted. He is anticoagulated with Eliquis. 3. Diabetes mellitus type 2: Insulin-dependent. Resume Levemir and sliding scale coverage 4. Essential hypertension 5. Hypothyroidism TSH level normal. Continue Synthroid 6. Hyperlipidemia continue Pravachol 7. BPH continue Flomax Hospital course: This is a 82-year-old male with a known past medical history of atrial fibrillation anticoagulated with Eliquis, sick sinus syndrome, diabetes mellitus type 2 and BPH. Patient presents to the emergency room after being seen in his PCPs office for worsening shortness of breath and was noted to have abnormal EKG with A. fib RVR and was informed to go to the emergency room for further evaluation and treatment. Patient reports over the last week he's noted at worsening shortness of breath and not feeling well. He's been very weak also having some episodes of chest discomfort. Patient has been admitted to the sixth floor and is currently being treated for congestive heart failure exacerbation on IV Lasix. BNP was 4530. Chest x-ray showing atelectasis in the left lower base. Also was treated for atrophic relation with rapid ventricular response on Cardizem drip. Patient is also having evidence of bilateral lower extremity edema. Troponin was negative. EKG showing intraventricular conduction delay. Cardiology has been consulted. Patient was evaluated by cardiology enalapril was discontinued and patient was started on lisinopril 2.5 mg daily, dose of metoprolol increased to 50 mg 3 times a day, Aldactone 25 mg by mouth daily added to regimen patient improved he was cleared for discharge by cardiology, he will be followed closely at our office and at cardiology office in the next week. Patient Condition at Discharge: Fair Plan - Discharge Summary Discharge Rx Participant: No New Discharge Prescriptions: New Lisinopril [Zestril] 2.5 mg PO DAILY tab Metoprolol Tartrate [Lopressor] 50 mg PO TID tab Spironolactone [Aldactone] 25 mg PO DAILY tab Continue Potassium Chloride [Klor-Con 20] 20 meq PO QAM Furosemide 40 mg PO QAM Pravastatin Sodium [Pravachol] 80 mg PO HS Dicyclomine [Bentyl] 10 mg PO TID PRN PRN Reason: IRRITABLE BOWEL Apixaban [Eliquis] 5 mg PO BID Amiodarone [Cordarone] 100 mg PO DAILY Gabapentin [Neurontin] 300 mg PO TID Levothyroxine Sodium [Synthroid] 25 mcg PO DAILY Insulin Detemir [Levemir] 52 unit SQ HS Ergocalciferol (Vitamin D2) [Vitamin D2] 50,000 unit PO FR Tamsulosin [Flomax] 0.4 mg PO DAILY Insulin Aspart [NovoLOG Flexpen] 7 unit SQ AC-TID Discontinued Metoprolol Tartrate [Lopressor] 25 mg PO BID Enalapril [Vasotec] 20 mg PO DAILY Discharge Medication List Potassium Chloride [Klor-Con 20] 20 meq PO QAM 08/15/13 [History] Furosemide 40 mg PO QAM 08/29/14 [History] Amiodarone [Cordarone] 100 mg PO DAILY 10/28/15 [History] Apixaban [Eliquis] 5 mg PO BID 10/28/15 [History] Dicyclomine [Bentyl] 10 mg PO TID PRN 10/28/15 [History] Pravastatin Sodium [Pravachol] 80 mg PO HS 10/28/15 [History] Gabapentin [Neurontin] 300 mg PO TID 04/11/16 [History] Levothyroxine Sodium [Synthroid] 25 mcg PO DAILY 04/11/16 [History] Ergocalciferol (Vitamin D2) [Vitamin D2] 50,000 unit PO FR 09/21/16 [History] Insulin Detemir [Levemir] 52 unit SQ HS 09/21/16 [History] Tamsulosin [Flomax] 0.4 mg PO DAILY 09/27/16 [History] Insulin Aspart [NovoLOG Flexpen] 7 unit SQ AC-TID 09/06/17 [History] Lisinopril [Zestril] 2.5 mg PO DAILY tab 09/09/17 [Rx] Metoprolol Tartrate [Lopressor] 50 mg PO TID tab 09/09/17 [Rx] Spironolactone [Aldactone] 25 mg PO DAILY tab 09/09/17 [Rx] Follow up Appointment(s)/Referral(s): Oniel Lane MD [STAFF PHYSICIAN] - 1 Week (Office will call with follow up appointment.) Orlando Toney MD [Primary Care Provider] - 09/14/17 2:15 pm Patient Instructions/Handouts: Heart Failure (DC), Supraventricular Tachycardia (DC), Low Sodium Diet (DC)
--- NOTE | 2017-09-09 14:35 | P.PN ---
Subjective Progress Note Date: 09/09/17 This is a pleasant 82-year-old gentleman who sees as an outpatient with a past medical history significant forchronic atrial fibrillation on oral anticoagulation, as well as diabetes, presented to the hospital complaining of shortness of breath. She was diagnosed with congestive heart failure was diuresed well with IV Lasix. Patient continues to be in atrial fibrillation which is chronic for him, he is on anticoagulation. Creatinine today is 1.2. Blood pressure 90/60 with a heart rate in the 50s. Objective - Vital Signs Vital signs: Vital Signs Temp 97.2 F L 09/09/17 12:00 Pulse 51 L 09/09/17 12:00 Resp 18 09/09/17 12:00 BP 98/61 09/09/17 12:00 Pulse Ox 96 09/09/17 12:00 Intake & Output 09/08/17 09/09/17 09/09/17 18:59 06:59 18:59 Intake Total 480 600 480 Output Total 700 800 Balance -220 600 -320 Weight 92 kg Intake: Oral 480 600 480 Output: Urine 700 800 Other: Voiding Method Toilet # Voids 2 - Exam PHYSICAL EXAMINATION: GENERAL: 82-year-old gentleman in no acute distress at the time of my examination HEENT: Head is atraumatic, normocephalic. Pupils equal, round. Sclera anicteric. Conjunctiva are clear. Mucous membranes of the mouth are moist. Neck is supple. There is no elevated jugular venous pressure.] bruit is heard. HEART EXAMINATION: Heart S1 and S2 irregularly irregular CHEST EXAMINATION: Lungs reveal coarse rhonchi that clear with cough ABDOMEN: Soft, nontender. Bowel sounds are heard. No organomegaly noted. EXTREMITIES: 2+ peripheral pulses with no evidence of peripheral edema and no calf tenderness noted. NEUROLOGIC patient is awake, alert and oriented ?-3. . - Labs CBC & Chem 7: 09/09/17 06:32 09/09/17 06:32 Labs: Abnormal Lab Results - Last 24 Hours (Table) 09/08/17 09/08/17 09/09/17 Range/Units 16:22 21:15 05:55 Chloride (98-107) mmol/L BUN (9-20) mg/dL Glucose (74-99) mg/dL POC Glucose (mg/dL) 118 H 74 L 65 L (75-99) mg/dL Total Protein (6.3-8.2) g/dL 09/09/17 09/09/17 Range/Units 06:32 11:16 Chloride 109 H (98-107) mmol/L BUN 32 H (9-20) mg/dL Glucose 103 H (74-99) mg/dL POC Glucose (mg/dL) 214 H (75-99) mg/dL Total Protein 5.8 L (6.3-8.2) g/dL Assessment and Plan Plan: assessment #1 congestive heart failure exacerbation secondary to systolic dysfunction. #2 atrial fibrillation with RVR, persistent chronic #3 known chronic atrial fibrillation on oral anticoagulation #4 severe cardiomyopathy unknown if this is ischemic or nonischemic #5 diabetes #6 hyperlipidemia Plan We'll discontinue the IV Lasix and start the patient on oral diuretics. From cardiology's perspective he may be able to be discharged home once cleared by primary. We will make a follow-up appointment in the office post discharge. DNP note has been reviewed, I agree with a documented findings and plan of care. Patient was seen and examined.
[2017-09-09] MEDS ORDERED: FUROSEMIDE 40 MG TAB PO SCH (16:00)
== END 2017-09-09 15:05 | disposition home or self-care (01) | DRG 292 ==
LOC: EC 15:51 → 4MS4W 19:47 → EC 21:23 → 6SEL 09-07 02:51
PROVIDERS: ADMIT Internal Medicine; ATTEND Internal Medicine
DX: I11.0 Hypertensive heart disease with heart failure (principal); I47.1 Supraventricular tachycardia; J98.11 Atelectasis; E03.9 Hypothyroidism, unspecified; E11.9 Type 2 diabetes mellitus without complications; E78.5 Hyperlipidemia, unspecified; G89.29 Other chronic pain; M54.9 Dorsalgia, unspecified; I25.10 Atherosclerotic heart disease of native coronary artery without angina pectoris; I25.2 Old myocardial infarction; I42.9 Cardiomyopathy, unspecified; I45.9 Conduction disorder, unspecified; I48.2 Chronic atrial fibrillation; I50.23 Acute on chronic systolic (congestive) heart failure; N40.0 Benign prostatic hyperplasia without lower urinary tract symptoms; Z79.01 Long term (current) use of anticoagulants; Z79.4 Long term (current) use of insulin; Z79.899 Other long term (current) drug therapy; Z86.74 Personal history of sudden cardiac arrest; Z80.9 Family history of malignant neoplasm, unspecified; Z79.890 Hormone replacement therapy
CPT/HCPCS: 36415; 71046; 80048; 80053; 82550; 82553; 83735; 83880; 84443; 84484; 85025; 85610; 85730; 93005; 93306; 94760; 99285

== ENCOUNTER 2017-10-05 10:03 | Day surgery (SDC) | payer MEDICARE ==
[~2017-10-05 10:03] MED LIST changes: -DEXAMETHASONE SOD PHOSPHATE 10 MG/ML 1 ML VIAL IV ONE; -HYDROmorphone 1 MG/ML 1 ML SYRINGE IVP PRN; -ONDANSETRON 4 MG/2 ML VIAL IVP ONE
[2017-10-05] MEDS ORDERED: INSULIN ASPART 100 UNIT/ML 1 ML 10 ML VIAL SQ ONE (10:41)
[2017-10-05 10:49] LABS: Glucose,Whole Blood 234 mg/dL (75-99)
[2017-10-05] MEDS ORDERED: PROPOFOL 10 MG/ML 20 ML VIAL IV ONE (12:52)
[2017-10-05] MEDS ORDERED: FUROSEMIDE 10 MG/ML 2 ML VIAL ONE (12:52)
[2017-10-05] MEDS ORDERED: fentaNYL (PF) 50 MCG/ML 2 ML AMP ONE (12:52)
[2017-10-05] MEDS ORDERED: MIDAZOLAM 2 MG/2 ML VIAL ONE (12:52)
[2017-10-05] MEDS ORDERED: HYDROmorphone (PF) 1 MG/ML ONE (12:52)
[2017-10-05] MEDS ORDERED: ISOPROTERENOL 250 MCG/1.25 ML SYR IV ONE (12:52)
[2017-10-05] MEDS ORDERED: LIDOCAINE 1% INJ 10MG/ML (20 ML MDV) ONE (13:17)
[2017-10-05] MEDS ORDERED: LIDOCAINE 1% INJ 10MG/ML (20 ML MDV) SQ ONE (13:29)
[2017-10-05] MEDS ORDERED: HEPARIN SODIUM (1,000 UNIT/ML) 1,000 UNIT in SODIUM CHLORIDE 0.9% 1,000 ML IRRIGATION ONE (15:34)
[2017-10-05] MEDS ORDERED: DICYCLOMINE 10 MG CAP PO PRN (15:37)
[2017-10-05] MEDS ORDERED: ACETAMINOPHEN IV (For NPO) 1,000 MG in EMPTY BAG 1 BAG IVPB ONE (15:38)
[2017-10-05] MEDS ORDERED: ACETAMINOPHEN TAB 325 MG TAB PO PRN (15:38)
[2017-10-05] MEDS ORDERED: HYDROcodone/APAP 5-325MG 1 EACH TAB PO PRN (15:38)
--- NOTE | 2017-10-05 16:54 | CE ---
CARDIAC ELECTROPHYSIOLOGY REPORT This is an 82-year-old male patient who was admitted to the hospital with supraventricular tachycardia. He was also in 1-1 SVT that looked like AV evreton reentry and responded to adenosine. However, he has had a 12-lead ECG shows an atrial tachycardia with a cycle length of about 400 milliseconds with variable AV block. No atrial fibrillation. He is brought in for diagnostic EP study and SVT ablation. The patient is brought to the EP lab in a fasting state. Written informed consent was obtained prior to the procedure. The right and left groins were prepped and draped as per protocol. Three venous sheaths were placed in the right femoral vein, 1 venous sheath in the left femoral vein and later a long sheath was placed. Diagnostic catheters were placed in the right heart initially, high right atrium, His bundle, right ventricle and coronary sinus. Later an intracardiac echo catheter was placed. Mapping and ablation catheter was placed. Sinus cycle length: 941 milliseconds. FL interval 202 milliseconds, QRS 108 milliseconds, QT 489 milliseconds. AH interval 78 milliseconds, HV interval 58 milliseconds. The patient was on 100 mg of amiodarone orally. Beta blockers were held for 48 hours. Sinus node recovery times were mildly prolonged. AV node Wenckebach block 420 milliseconds. There was a semblance of the slow pathway at 440 milliseconds, but this could not be corroborated on Isuprel. The VA Wenckebach block greater than 600 milliseconds. AV node Wenckebach performed from the coronary sinus 410 milliseconds. Atrial extra stimulation was performed after double extra stimuli. Burst stimulation was performed. No SVT was induced on Isuprel. Frequent PACs, septal PAC's with a skinny P wave was noted in the V1. The peak of this P wave had a delayed onset. AV node Wenckebach block improved to 480 milliseconds. The burst stimulation was performed. Extra stimulation up to triple extrastimuli was performed from multiple sites in the coronary sinus poles. Ventricular extra stimulation was performed. No SVT was induced. No evidence of slow pathway or echo beats was noted. Therefore, in view of the 12-lead ECG on admission in August, the decision was made to proceed with atrial flutter ablation. Intracardiac echocardiography was performed. A 3D mapping of the right atrial isthmus was performed. Mapping ablation catheter was used and 120 L heart span sheath was used. Mapping of the right atrial isthmus was performed. Ablation of the right atrial isthmus was performed. A complete line of block was made from the tricuspid valve to the eustachian ridge. On 100% grid, there was no evidence for any gaps. Non-capture was documented along the ablation line. Isthmus conduction time was about 180 milliseconds and with differential pacing, bidirectional block was proven. All catheters were then removed and patient was transferred back to telemetry. RESULT: Successful mapping and ablation of atrial flutter. PLAN: 1. Start metoprolol succinate, 100 mg p.o. daily since the patient has cardiomyopathy. 2. No alcohol consumption. 3. Continue amiodarone 100 mg p.o. daily, continue lisinopril, spironolactone and continue Eliquis lifelong. MMODL / IJN: [id number] /
[2017-10-05 17:20] LABS: Glucose,Whole Blood 177 mg/dL (75-99)
[2017-10-05 17:40] LABS: Glucose,Whole Blood 173 mg/dL (75-99)
[2017-10-05] MEDS: GABAPENTIN 300 MG CAP PO SCH ×2 (17:59→21:36)
[2017-10-05] MEDS: INSULIN ASPART 100 UNIT/ML 1 ML 10 ML VIAL SQ SCH (17:59)
[2017-10-05 18:20] VITALS: BMI 31.6
[2017-10-05 20:24] LABS: Glucose,Whole Blood 159 mg/dL (75-99)
[2017-10-05] MEDS ORDERED: PRAVASTATIN SODIUM 80 MG TAB PO SCH (21:00)
[2017-10-05] MEDS ORDERED: INSULIN DETEMIR 100 UNIT/ML 10 ML VIAL SQ SCH (21:00)
[2017-10-05] MEDS: APIXABAN 5 MG TAB PO SCH (21:36)
[2017-10-06] MEDS ORDERED: LEVOTHYROXINE 25 MCG TAB PO SCH (06:30)
[2017-10-06 06:49] LABS: Glucose,Whole Blood 184 mg/dL (75-99)
[2017-10-06] MEDS ORDERED: METOPROLOL SUCCINATE (ER) 100 MG TAB.ER.24H PO SCH (07:00)
[2017-10-06 07:32] VITALS: BP 122/72; PULSE 66; RESP 18; TEMP 97.5
[2017-10-06] MEDS ORDERED: AMIODARONE 100 MG TAB PO SCH (09:00)
[2017-10-06] MEDS ORDERED: SPIRONOLACTONE 25 MG TAB PO SCH (09:00)
[2017-10-06] MEDS ORDERED: LISINOPRIL 2.5 MG TAB PO SCH (09:00)
[2017-10-06] MEDS ORDERED: FUROSEMIDE 40 MG TAB PO SCH (09:00)
[2017-10-06] MEDS ORDERED: TAMSULOSIN 0.4 MG CAP.ER.24H PO SCH (09:00)
[2017-10-06] MEDS: APIXABAN 5 MG TAB PO SCH (09:58)
[2017-10-06] MEDS: GABAPENTIN 300 MG CAP PO SCH (09:58)
[2017-10-06] MEDS: INSULIN ASPART 100 UNIT/ML 1 ML 10 ML VIAL SQ SCH (09:58)
--- NOTE | 2017-10-06 10:34 | P.DS ---
Providers Attending physician: Oniel Lane Primary care physician: [facility] Hospital Course: Patient is doing well. No chest discomfort dizziness lightheadedness or palpitations Groins of healed well no pain no hematoma Afebrile 98.3F blood pressure 134/71 mmHg Breath sounds are clear no rhonchi no crackles Heart sounds are normal normal S1 normal S2 is regular Abdomen is soft nontender External is warm no edema no hematoma in the groins bilaterally Impression Atrial flutter status post successful ablation with complete bidirectional block and non-capture along Isthmus conduction time about 180 ms Paroxysmal atrial fibrillation with RVR status post cryoablation in the past. A detailed EP study was performed and atrial fibrillation could not be induced despite high-dose Isuprel, burst stimulation and up to triple extrastimuli from HRA and CS/multiple sites No other atrial tachycardia inducible Recently LV function was noted to be reduced. Patient denies any alcohol consumption Suggest Continue anticoagulation, continue Toprol-XL 100 mg by mouth daily continue Pravachol continue Aldactone continue lisinopril I switched him from regular metoprolol to Toprol-XL 100 mg by mouth daily Patient Condition at Discharge: Stable Plan - Discharge Summary Discharge Rx Participant: No New Discharge Prescriptions: New Metoprolol Succinate [Toprol XL] 100 mg PO DAILY #90 tab.er.24h Discontinued Metoprolol Tartrate [Lopressor] 50 mg PO TID tab No Action Furosemide 40 mg PO QAM Pravastatin Sodium [Pravachol] 80 mg PO HS Dicyclomine [Bentyl] 10 mg PO TID PRN PRN Reason: IRRITABLE BOWEL Apixaban [Eliquis] 5 mg PO BID Amiodarone [Cordarone] 100 mg PO DAILY Gabapentin [Neurontin] 300 mg PO TID Levothyroxine Sodium [Synthroid] 25 mcg PO DAILY Insulin Detemir [Levemir] 52 unit SQ HS Ergocalciferol (Vitamin D2) [Vitamin D2] 50,000 unit PO FR Tamsulosin [Flomax] 0.4 mg PO DAILY Insulin Aspart [NovoLOG Flexpen] 7 unit SQ AC-TID Lisinopril [Zestril] 2.5 mg PO DAILY tab Spironolactone [Aldactone] 25 mg PO DAILY tab Discharge Medication List Furosemide 40 mg PO QAM 08/29/14 [History] Amiodarone [Cordarone] 100 mg PO DAILY 10/28/15 [History] Apixaban [Eliquis] 5 mg PO BID 10/28/15 [History] Dicyclomine [Bentyl] 10 mg PO TID PRN 10/28/15 [History] Pravastatin Sodium [Pravachol] 80 mg PO HS 10/28/15 [History] Gabapentin [Neurontin] 300 mg PO TID 04/11/16 [History] Levothyroxine Sodium [Synthroid] 25 mcg PO DAILY 04/11/16 [History] Ergocalciferol (Vitamin D2) [Vitamin D2] 50,000 unit PO FR 09/21/16 [History] Insulin Detemir [Levemir] 52 unit SQ HS 09/21/16 [History] Tamsulosin [Flomax] 0.4 mg PO DAILY 09/27/16 [History] Insulin Aspart [NovoLOG Flexpen] 7 unit SQ AC-TID 09/06/17 [History] Lisinopril [Zestril] 2.5 mg PO DAILY tab 09/09/17 [Rx] Spironolactone [Aldactone] 25 mg PO DAILY tab 09/09/17 [Rx] Metoprolol Succinate [Toprol XL] 100 mg PO DAILY #90 tab.er.24h 10/05/17 [Rx] Follow up Appointment(s)/Referral(s): Oniel Lane MD [STAFF PHYSICIAN] - 3 Weeks (Groin check in 2-[address] Ames ) Activity/Diet/Wound Care/Special Instructions: Post EP study - Ablation instructions 1. Keep access sites dry for 2 days. 2. No heavy lifting or straining for 2 days. 3. Avoid bending the hips repeatedly for 2 days. 4. You may go up and down stairs slowly Call if the following is noted 1. Bleeding, increasing swelling or pain at the access sites. 2. Increasing chest discomfort, especially upon taking a deep breath. 3. Increasing shortness of breath, at rest or with exertion. 4. Undue cough / phlegm 5. Difficulty or pain while swallowing. 6. Pain or change in color in the extremities. 7. Fever, chills, rigors. 8. Increasing headache or neurologic symptoms. 9. Dizziness, fainting, palpitations Stop metoprolol tartrate Start metoprolol succinate 100 mg every morning Lifelong anticoagulation Discharge Disposition: HOME SELF-CARE
== END 2017-10-06 11:35 | disposition home or self-care (01) ==
LOC: CATHEP 10:03 → 3OBS 15:33 → CATHEP 10-06 11:35
PROVIDERS: ATTEND Internal Medicine Clinical Cardiac Electrophysiology
DX: I47.1 Supraventricular tachycardia (principal); I44.30 Unspecified atrioventricular block; I42.8 Other cardiomyopathies; I49.5 Sick sinus syndrome; I11.0 Hypertensive heart disease with heart failure; I50.22 Chronic systolic (congestive) heart failure; E78.5 Hyperlipidemia, unspecified; E11.9 Type 2 diabetes mellitus without complications; Z79.01 Long term (current) use of anticoagulants; Z79.4 Long term (current) use of insulin; Z79.899 Other long term (current) drug therapy
CPT/HCPCS: 93623; 93662; 93613; 93653; C1894; C1769 ×2; C1730; C1759; C1893; C1732; J2250; J1940; J2001; J3010; J1644; J1170; J2704

== ENCOUNTER → 2017-12-14 | Outpatient (CLI) | payer MEDICARE ==
[2017-12-14 09:25] LABS: HCT 44.3 % (39.0-53.0); HGB 14.4 gm/dL (13.0-17.5); MCH 31.8 pg (25.0-35.0); MCHC 32.4 g/dL (31.0-37.0); Mean Platelet Volume 8.4; Platelet Count 170 k/uL (150-450); RBC 4.52 m/uL (4.30-5.90); RDW 14.3 % (11.5-15.5); WBC 9.8 k/uL (3.8-10.6)
[2017-12-14 09:41] LABS: Potassium 4.8 mmol/L (3.5-5.1)
== END | disposition home or self-care (01) ==
LOC: LABPAT 08:20
PROVIDERS: ATTEND Internal Medicine Clinical Cardiac Electrophysiology
DX: Z01.812 Encounter for preprocedural laboratory examination (principal); I47.1 Supraventricular tachycardia; E11.9 Type 2 diabetes mellitus without complications
CPT/HCPCS: 36415; 80051; 82565; 82947; 84520; 85027

== ENCOUNTER 2017-12-18 06:21 | Day surgery (SDC) | payer MEDICARE ==
[~2017-12-18 06:21] MED LIST changes: +HYDROmorphone 0.5 MG/0.5 ML SYRINGE IVP PRN; -LACTATED RINGERS 1,000 ML IV SCH; +MIDAZOLAM 2 MG/2 ML VIAL IV PRN; -SODIUM CHLORIDE 0.9% 1,000 ML IV SCH
[2017-12-18] MEDS: SODIUM CHLORIDE 0.9% 1,000 ML IV SCH (06:50)
[2017-12-18 07:02] LABS: Glucose,Whole Blood 99 mg/dL (75-99)
[2017-12-18] MEDS ORDERED: fentaNYL (PF) 50 MCG/ML 2 ML AMP ONE (08:00)
[2017-12-18] MEDS ORDERED: MIDAZOLAM 2 MG/2 ML VIAL ONE (08:00)
[2017-12-18] MEDS ORDERED: ISOPROTERENOL 250 MCG/1.25 ML SYR IV ONE (08:00)
[2017-12-18] MEDS ORDERED: FUROSEMIDE 10 MG/ML 2 ML VIAL ONE (08:00)
[2017-12-18] MEDS ORDERED: HEPARIN SODIUM,PORCINE 10,000 UNIT/ML 1 ML VIAL ONE (08:00)
[2017-12-18] MEDS ORDERED: PROPOFOL 10 MG/ML 20 ML VIAL IV ONE (08:00)
[2017-12-18] MEDS ORDERED: PROTAMINE SULFATE 10 MG/ML 5 ML VIAL IV ONE (08:00)
[2017-12-18] MEDS ORDERED: PHENYLEPHRINE-0.9% NACL SYG 1 MG/10 ML SYRINGE ONE (08:00)
[2017-12-18] MEDS ORDERED: LIDOCAINE 1% INJ 10MG/ML (20 ML MDV) ONE (08:23)
[2017-12-18] MEDS ORDERED: LIDOCAINE 1% INJ 10MG/ML (20 ML MDV) SQ ONE (08:42)
[2017-12-18] MEDS ORDERED: IOPAMIDOL-250 50ML BTL IV ONE (08:43)
[2017-12-18] MEDS ORDERED: HEPARIN SODIUM 1,000 UN/ML (10ML VL) ONE (09:04)
[2017-12-18] MEDS ORDERED: HEPARIN SODIUM (1,000 UNIT/ML) 1,000 UNIT in SODIUM CHLORIDE 0.9% 1,000 ML IRRIGATION ONE (09:18)
[2017-12-18] MEDS ORDERED: HEPARIN SOD,PORK IN 0.45% NACL 25,000 UNIT in 0.45% NACL 1 500ML.BAG IV ONE (09:28)
[2017-12-18 10:48] LABS: Glucose,Whole Blood 89 mg/dL (75-99)
[2017-12-18] MEDS ORDERED: ACETAMINOPHEN TAB 325 MG TAB PO PRN (12:25)
[2017-12-18] MEDS ORDERED: HYDROcodone/APAP 5-325MG 1 EACH TAB PO PRN (12:25)
[2017-12-18] MEDS ORDERED: DICYCLOMINE 10 MG CAP PO PRN (12:30)
[2017-12-18] MEDS ORDERED: ACETAMINOPHEN IV (For NPO) 1,000 MG in EMPTY BAG 1 BAG IVPB ONE (13:00)
--- NOTE | 2017-12-18 13:19 | P.DS ---
Providers Attending physician: Oniel Lane Primary care physician: [facility] Course: Final impression Patient admitted with an atrial tachycardia. 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 He denies any palpitations shortness of breath discomfort in the chest. No groin problems overnight Sutures removed in both groins. No hematoma no bleeding no swelling Breath sounds are clear line heart sounds are normal Heart sounds are regular no murmurs Abdomen soft nontender No edema Afebrile 97.4F, pulse rate in the 50s and 60s, blood pressure 114/69 mmHg Impression Atrial tachycardia status post successful ablation, LA roof tachycardia, reentrant Plan Continue current medications without any changes and follow-up with Dr. Ames end 2 weeks Patient Condition at Discharge: Stable Plan - Discharge Summary Discharge Rx Participant: No New Discharge Prescriptions: Continue Furosemide 40 mg PO QAM Pravastatin Sodium [Pravachol] 80 mg PO HS Dicyclomine [Bentyl] 10 mg PO TID PRN PRN Reason: IRRITABLE BOWEL Apixaban [Eliquis] 5 mg PO BID Amiodarone [Cordarone] 100 mg PO DAILY Gabapentin [Neurontin] 300 mg PO TID Levothyroxine Sodium [Synthroid] 25 mcg PO DAILY Insulin Detemir [Levemir] 60 unit SQ HS Ergocalciferol (Vitamin D2) [Vitamin D2] 50,000 unit PO FR Tamsulosin [Flomax] 0.4 mg PO DAILY Insulin Aspart [NovoLOG Flexpen] 7 unit SQ AC-TID Spironolactone [Aldactone] 25 mg PO DAILY tab Metoprolol Succinate [Toprol XL] 100 mg PO DAILY #90 tab.er.24h Lisinopril [Zestril] 2.5 mg PO HS Ascorbic Acid [Vitamin C] 500 mg PO DAILY Discharge Medication List Furosemide 40 mg PO QAM 08/29/14 [History] Amiodarone [Cordarone] 100 mg PO DAILY 10/28/15 [History] Apixaban [Eliquis] 5 mg PO BID 10/28/15 [History] Dicyclomine [Bentyl] 10 mg PO TID PRN 10/28/15 [History] Pravastatin Sodium [Pravachol] 80 mg PO HS 10/28/15 [History] Gabapentin [Neurontin] 300 mg PO TID 04/11/16 [History] Levothyroxine Sodium [Synthroid] 25 mcg PO DAILY 04/11/16 [History] Ergocalciferol (Vitamin D2) [Vitamin D2] 50,000 unit PO FR 09/21/16 [History] Insulin Detemir [Levemir] 60 unit SQ HS 09/21/16 [History] Tamsulosin [Flomax] 0.4 mg PO DAILY 09/27/16 [History] Insulin Aspart [NovoLOG Flexpen] 7 unit SQ AC-TID 09/06/17 [History] Spironolactone [Aldactone] 25 mg PO DAILY tab 09/09/17 [Rx] Metoprolol Succinate [Toprol XL] 100 mg PO DAILY #90 tab.er.24h 10/05/17 [Rx] Ascorbic Acid [Vitamin C] 500 mg PO DAILY 12/15/17 [History] Lisinopril [Zestril] 2.5 mg PO HS 12/15/17 [History] Follow up Appointment(s)/Referral(s): Oniel Lane MD [STAFF PHYSICIAN] - 2 Weeks Activity/Diet/Wound Care/Special Instructions: Post EP study - Ablation instructions 1. Keep access sites dry for 2 days. 2. No heavy lifting or straining for 2 days. 3. Avoid bending the hips repeatedly for 2 days. 4. You may go up and down stairs slowly Call if the following is noted 1. Bleeding, increasing swelling or pain at the access sites. 2. Increasing chest discomfort, especially upon taking a deep breath. 3. Increasing shortness of breath, at rest or with exertion. 4. Undue cough / phlegm 5. Difficulty or pain while swallowing. 6. Pain or change in color in the extremities. 7. Fever, chills, rigors. 8. Increasing headache or neurologic symptoms. 9. Dizziness, fainting, palpitations Continue ELIQUIS No changes in medications Follow-up with Dr. Ames/Donna King [employer] in 2 weeks
[2017-12-18] MEDS: LACTATED RINGERS 1,000 ML IV SCH (15:44)
[2017-12-18 16:31] VITALS: BMI 33.9
--- NOTE | 2017-12-18 17:12 | PCN ---
PROCEDURE NOTE Mr. Reid is an 82-year-old male patient who presented to the office last week with heart rates in the 160s to 170 beats per minute, supraventricular tachycardia with clear-cut P waves for each QRS. He was brought to the EP lab for an EP study and ablation. The patient was brought to the EP lab in a fasting state. Written informed consent was obtained prior to the procedure. There was excoriation in the groins and therefore a CS catheter was placed via the left subclavian route. The left pectoral area was prepped and draped as per protocol. Venous sheaths were placed and a coronary sinus catheter was placed in the CS. Venous sheaths were placed in the right and left femoral veins, avoiding the areas of excoriation. Diagnostic catheters were placed. Mapping ablation catheters were placed. Intracardiac echo catheters were placed. At the start of the study, the patient was in tachycardia, which is his clinical tachycardia. Tachycardia cycle length 429 milliseconds. Upright P waves in lead V1. Later, after successful ablation, the sinus cycle length was 1015 milliseconds, VA interval 204 milliseconds, QRS 110 milliseconds, QT 371 milliseconds. AH interval 78 milliseconds, HV interval 65 milliseconds. Mapping ablation catheter was first placed and the right atrium was mapped and a broad focus was noted; early activation was noted in the superior septum. The catheter inadvertently passed through a PFO into the left atrium and the left atrium was mapped, and during tachycardia the earliest site appeared to be in the roof later. This catheter was removed. Transseptal catheterization was performed. Patient was already on heparin. Intracardiac echocardiography was performed. Intracardiac echocardiography revealed a very dilated left atrium and a small fossa ovalis; a very small pericardial space around the left ventricle inferiorly. Transseptal catheterization was successfully performed. The right atrial pressure was 44 x 13 x 3 mmHg. LA pressure was 45 x 15 x 30 mmHg. Detailed mapping of the roof was performed and it was proven that this was a roof tachycardia, most likely reentry, and RF ablation at the earliest site resulted in termination of the tachycardia. Following that, a roof line was made and good contact force and complete anatomic was made. Following that, a full EP study was performed. Atrial extrastimulation was performed up to triple extrastimuli at [address] Tachycardia could not be induced. High output pacing was performed all along the RF line in the roof and non- capture was noted. VA Wenckebach block greater than 350 milliseconds. Sinus node recovery times 809 milliseconds. Atrial stimulation was performed from the high right atrium, the ventricle and the coronary sinus. No tachycardias were induced. High-dose Isuprel was employed and atrial extrastimulation was performed. No tachycardia was induced. All catheters were then removed and patient was transferred back to telemetry. RESULT: Diagnostic EP study revealed roof tachycardia, likely reentrant (early meet late criteria). A roof line was made at the site of the earliest breakthrough in the roof. Tachycardia terminated. Following that, a complete line of block was made and the tachycardia was rendered non-inducible. Patient tolerated the procedure well without any acute complications. PROCEDURES PERFORMED: 1. Comprehensive diagnostic EP study with attempted arrhythmia induction. 2. CS pacing and recording. 3. Programmed stimulation following Isuprel. 4. Intracardiac echo. 5. Left to right transseptal catheterization. 6. Three-dimensional mapping of the right and the left atria. 7. Atrial ablation (radiofrequency). MMODL / IJN: [id number] /
[2017-12-18] MEDS: APIXABAN 5 MG TAB PO SCH (20:21)
[2017-12-18 20:32] LABS: Glucose,Whole Blood 157 mg/dL (75-99)
[2017-12-18] MEDS ORDERED: LISINOPRIL 2.5 MG TAB PO SCH (21:00)
[2017-12-18] MEDS ORDERED: INSULIN DETEMIR 100 UNIT/ML 10 ML VIAL SQ SCH (21:00)
[2017-12-18] MEDS ORDERED: PRAVASTATIN SODIUM 80 MG TAB PO SCH (21:00)
[2017-12-19 04:01] VITALS: RESP 16
[2017-12-19] MEDS: LACTATED RINGERS 1,000 ML IV SCH (05:29)
[2017-12-19] MEDS: SODIUM CHLORIDE 0.9% 1,000 ML IV SCH (05:29)
[2017-12-19] MEDS ORDERED: LEVOTHYROXINE 25 MCG TAB PO SCH (06:30)
[2017-12-19 07:10] LABS: Glucose,Whole Blood 67 mg/dL (75-99)
[2017-12-19 07:10] LABS: Glucose,Whole Blood 53 mg/dL (75-99)
[2017-12-19 07:28] VITALS: BP 151/82; TEMP 97.4
[2017-12-19 07:38] LABS: Glucose,Whole Blood 91 mg/dL (75-99)
[2017-12-19] MEDS: APIXABAN 5 MG TAB PO SCH (08:04)
[2017-12-19 08:13] VITALS: PULSE 56
[2017-12-19] MEDS ORDERED: METOPROLOL SUCCINATE (ER) 100 MG TAB.ER.24H PO SCH (09:00)
[2017-12-19] MEDS ORDERED: FUROSEMIDE 40 MG TAB PO SCH (09:00)
[2017-12-19] MEDS ORDERED: SPIRONOLACTONE 25 MG TAB PO SCH (09:00)
[2017-12-19] MEDS ORDERED: AMIODARONE 100 MG TAB PO SCH (09:00)
[2017-12-19] MEDS ORDERED: TAMSULOSIN 0.4 MG CAP.ER.24H PO SCH (09:00)
== END 2017-12-19 09:33 ==
LOC: CATHEP 06:21 → 1SOBS 12:00 → CATHEP 12-19 09:33
PROVIDERS: ATTEND Internal Medicine Clinical Cardiac Electrophysiology
DX: I47.1 Supraventricular tachycardia (principal); I11.0 Hypertensive heart disease with heart failure; I50.22 Chronic systolic (congestive) heart failure; I44.0 Atrioventricular block, first degree; S30.811A Abrasion of abdominal wall, initial encounter; E78.5 Hyperlipidemia, unspecified; E11.9 Type 2 diabetes mellitus without complications; K58.9 Irritable bowel syndrome, unspecified; Z79.01 Long term (current) use of anticoagulants; Z79.4 Long term (current) use of insulin; Z79.899 Other long term (current) drug therapy
CPT/HCPCS: 93462; 93623; 93662; 93613; 93653; 85347; C1894; C1769 ×3; C1730 ×2; C1759; C1893; C1732; J2250; J2720; J1644 ×3; J1940; J2001; J3010; J0131; J2370; J2704; Q9966

== ENCOUNTER → 2019-12-04 | Outpatient (CLI) | payer MEDICARE | END | disposition home or self-care (01) | LOC: CPPFTMAIN 10:11 | PROVIDERS: ATTEND Internal Medicine Clinical Cardiac Electrophysiology | DX: I48.91 Unspecified atrial fibrillation (principal) | CPT/HCPCS: 94060; 94726; 94729 ==

== ENCOUNTER 2022-08-18 19:18 | Inpatient (IN) | payer MEDICARE, OTHER ==
[2022-08-18] MEDS ORDERED: ASPIRIN 81 MG PO STA (19:56)
[2022-08-18 20:24] LABS: Basophils % (A) 0 %; Eosinophils # (A) 0.5 k/uL (0-0.7); Eosinophils % (A) 5 %; HCT 47.6 % (39.0-53.0); HGB 15.7 gm/dL (13.0-17.5); Lymphocytes # (A) 1.8 k/uL (1.0-4.8); Lymphocytes % (A) 17 %; MCH 31.6 pg (25.0-35.0); MCV 95.8 fL (80.0-100.0); Mean Platelet Volume 7.9; Monocytes # (A) 0.8 k/uL (0-1.0); Monocytes % (A) 8 %; Neutrophils # (A) 7.3 k/uL (1.3-7.7); Neutrophils % (A) 69 %; Platelet Count 186 k/uL (150-450); RBC 4.97 m/uL (4.30-5.90); RDW 13.7 % (11.5-15.5); WBC 10.6 k/uL (3.8-10.6)
[2022-08-18 20:36] LABS: ALT 41 U/L (4-49); AST 39 U/L (17-59); African American GFR (CKD) 57 (>60 ml/min/1.73 sqM); Albumin 3.7 g/dL (3.5-5.0); Alkaline Phosphatase 74 U/L (38-126); Anion Gap 5 mmol/L; Blood Urea Nitrogen 28 mg/dL (9-20); Calcium 9.1 mg/dL (8.4-10.2); Carbon Dioxide 29 mmol/L (22-30); Chloride 106 mmol/L (98-107); Glucose 84 mg/dL (74-99); Lipase 85 U/L (23-300); Magnesium 2.1 mg/dL (1.6-2.3); Non-African American GFR(CKD) 49 (>60 ml/min/1.73 sqM); Potassium 4.8 mmol/L (3.5-5.1); Sodium 140 mmol/L (137-145); Total Bilirubin 0.8 mg/dL (0.2-1.3); Total Protein 6.4 g/dL (6.3-8.2)
[2022-08-18 20:37] LABS: INR 1.2 (<1.2); Partial Thromboplastin Time 27.6 sec (22.0-30.0); Prothrombin Time 11.9 sec (9.0-12.0)
--- NOTE | 2022-08-18 21:23 | XR ---
EXAMINATION TYPE: XR chest 2V DATE OF EXAM: 08/18/2022 COMPARISON: 09/09/2017 HISTORY: Shortness of breath TECHNIQUE: Frontal and lateral views of the chest are obtained. FINDINGS: Scattered senescent parenchymal changes noted. Hyperinflation compatible with COPD. Increased density right medial lung base may reflect developing atelectasis or infiltrate. Correlate clinically. Heart size is stable. Mediastinal structures are stable and grossly unremarkable. No evidence for hilar prominence. Degenerative changes dorsal spine. IMPRESSION: 1. Increased density right medial lung base may reflect developing atelectasis or infiltrate. Correla te clinically.
[2022-08-18] MEDS ORDERED: NALOXONE 0.4 MG/ML 1 ML VIAL IV PRN (21:59)
--- NOTE | 2022-08-18 21:59 | ED ---
General Adult HPI - General Chief complaint: Chest Pain Stated complaint: Chest pressure, weakness Time Seen by Provider: 08/18/22 19:31 Source: patient, RN notes reviewed, old records reviewed Mode of arrival: ambulatory Limitations: no limitations - History of Present Illness Initial comments: Patient is an 87-year-old male presents emergency Department complaining of generalized weakness, 6-7 months of atypical intermittent chest pain which he currently does not have as well as intermittent dyspnea which he currently does not have. Denies worsening orthopnea, PND but does have orthopnea baseline. Denies any worsening or extremity edema. Denies any nausea or vomiting. Endorses a chronic cough productive of clear mucus. Has a history of CHF, atrial fibrillation, diabetes on blood thinners. Was at home by himself but does get help from family but has required more help with ADLs at home. Presents with stepdaughter as the patient wishes to be evaluated. His no other obvious acute complaints at this time. Presents for further evaluation at this time. - Related Data Home Medications Medication Instructions Recorded Confirmed Furosemide 40 mg PO BID 08/29/14 08/18/22 Apixaban [Eliquis] 5 mg PO DAILY 10/28/15 08/18/22 Pravastatin Sodium [Pravachol] 80 mg PO HS 10/28/15 08/18/22 Ergocalciferol (Vitamin D2) 50,000 unit PO FR 09/21/16 08/18/22 [Vitamin D2] Insulin Detemir (Levemir) [Levemir] 100 unit SQ DAILY 09/21/16 08/18/22 Tamsulosin [Flomax] 0.4 mg PO DAILY 09/27/16 08/18/22 lisinopriL [Zestril] 2.5 mg PO HS 12/15/17 08/18/22 Amiodarone HCl [Pacerone] 50 mg PO BID 08/19/20 08/18/22 Insulin Aspart [NovoLOG] 10 units SQ BID 08/19/20 08/18/22 Docusate [Colace] 100 mg PO BID PRN 08/18/22 08/18/22 Levothyroxine Sodium [Synthroid] 88 mcg PO DAILY 08/18/22 08/18/22 Previous Rx's Medication Instructions Recorded Metoprolol Succinate [Toprol XL] 100 mg PO DAILY #90 tab.er.24h 10/05/17 Allergies Allergy/AdvReac Type Severity Reaction Status Date / Time No Known Allergies Allergy Verified 08/18/22 21:45 Review of Systems ROS Statement: Those systems with pertinent positive or pertinent negative responses have been documented in the HPI. Review of Systems: CONST: Denies fever EYES: Denies blurry vision ENT: Denies nasal congestion C/V: Endorses intermittent chest pain RESP: Endorses intermittent shortness of breath GI: Denies abdominal pain : Denies dysuria SKIN: Denies rash. MSK: Denies joint pain. NEURO: Denies headache ROS Other: All systems not noted in ROS Statement are negative. Past Medical History Past Medical History: Atrial Fibrillation, Heart Failure, Diabetes Mellitus, Hypertension, Thyroid Disorder Additional Past Medical History / Comment(s): CARDIAC ARRYTHMIA ,RECENT URINARY TRACT INFECTION Last Myocardial Infarction Date:: 2014 History of Any Multi-Drug Resistant Organisms: None Reported Past Surgical History: Back Surgery, Cardiac Ablation, Heart Catheterization Additional Past Surgical History / Comment(s): BACK SX -X2 WITH HARDWARE . PAIN PROCEDURES. Cardiac ablation X2 Past Anesthesia/Blood Transfusion Reactions: No Reported Reaction Past Psychological History: No Psychological Hx Reported Smoking Status: Never smoker Past Alcohol Use History: None Reported Past Drug Use History: None Reported - Past Family History Mother Family Medical History: Cancer Brother(s) Family Medical History: Cancer General Exam - General Exam Comments Initial Comments: General: Appears in no acute distress. HEAD: Normal with no signs of head trauma. EYES: PERRLA, EOMI, conjunctiva normal, no discharge. ENT: Hearing grossly intact, normal oropharynx. RESPIRATORY: Clear breath sounds bilaterally. No wheezes, rales, or rhonchi. Mild hypoxia on room air. No increased work of breathing. C/V: Regular rate and rhythm. S1 and S2 auscultated, bilateral symmetrical pitting edema which the patient states is baseline for the lower extremities, peripheral pulses 2+ and intact throughout ABD: Abd is soft, nontender, nondistended EXT: Normal range of motion, no obvious deformity SKIN: No rashes or lesions observed on exposed skin. NEURO: Alert and oriented 4. Limitations: no limitations Course Vital Signs 08/18/22 19:21 Temperature 98.9 F Pulse Rate 55 L Respiratory 18 Rate Blood Pressure 108/57 O2 Sat by Pulse 92 L Oximetry Medical Decision Making - Medical Decision Making Was pt. sent in by a medical professional or institution ([facility], [facility], urgent care, hospital, or halfway...) When possible be specific @ -No Did you speak to anyone other than the patient for history (EMS, parent, family, police, friend...)? What history was obtained from this source @ -Spoke with patient's stepdaughter who aids with patient's history, including recent increasing for assistance with ADLs Did you review nursing and triage notes (agree or disagree)? Why? @ -I reviewed and agree with nursing and triage notes Were old charts reviewed (outside hosp., previous admission, EMS record, old EKG, old radiological studies, urgent care reports/EKG's, halfway records)? Report findings @ -No old charts were reviewed Differential Diagnosis (chest pain, altered mental status, abdominal pain women, abdominal pain men, vaginal bleeding, weakness, fever, dyspnea, syncope, headache, dizziness, GI bleed, back pain, seizure, CVA, palpatations, mental health, musculoskeletal)? @ -Differential Dyspnea: Coronary syndrome, arrhythmia, tamponade, asthma, COPD, pulmonary embolism, pneumonia, pneumothorax, pulmonary effusion, anaphylaxis, diabetic ketoacidosis, flailed chest, pulmonary contusion, diaphragmatic rupture, anemia, neuromuscular, this is not meant to be an all-inclusive list. EKG interpreted by me (3pts min.). @ -As above X-rays interpreted by me (1pt min.). @ -Chest x-ray reveals no obvious acute cardio pulmonary process. Right medial lung base may show a developing atelectasis or infiltrate per radiology. I do suspect this is atelectasis as all of his upper respiratory complaints are chronic. CT interpreted by me (1pt min.). @ -None done U/S interpreted by me (1pt. min.). @ -None done What testing was considered but not performed or refused? (CT, X-rays, U/S, labs)? Why? @ -None What meds were considered but not given or refused? Why? @ -None Did you discuss the management of the patient with other professionals (professionals i.e. [facility], [facility], lab, RT, psych nurse, director social service, snowblower mechanic, teacher, postal sorting officer, case investigator)? Give summary @ -Discussed with Dr. Toney who accepted the patient. Was smoking cessation discussed for >3mins.? @ -No Was critical care preformed (if so, how long)? @ -No Were there social determinants of health that impacted care today? How? (Homelessness, low income, unemployed, alcoholism, drug addiction, transportation, low edu. Level, literacy, decrease access to med. care, assisted, rehab)? @ -No Was there de-escalation of care discussed even if they declined (Discuss DNR or withdrawal of care, Hospice)? DNR status @ -Discuss DO NOT RESUSCITATE at length with the patient has previously he was DO NOT RESUSCITATE. However he informs me that if there is a chance he would like to be resuscitated. We did discuss that if this means placing an ET tube and Intubation with putting him on life support then he was in agreement with this as well as chest compressions. He would like to be full code at this time. Discussion witnessed by patient's stepdaughter as well as nursing. What co-morbidities impacted this encounter? (DM, HTN, Smoking, COPD, CAD, Can cer, CVA, ARF, Chemo, Hep., AIDS, mental health diagnosis, sleep apnea, morbid obesity)? @ -None Was patient admitted / discharged? Hospital course, mention meds given and route, prescriptions, significant lab abnormalities, going to OR and other pertinent info. @ -Based on the patient's presentation and physical exam, presents with chronic atypical chest discomfort which he currently does not have as well as dyspnea which he currently does not have. He is requiring increased help with his ADLs at home. He is complaining of generalized weakness. We'll obtain cardiopulmonary labs. We did discuss admission for placement versus home health which he was in agreement with area and vital signs are within acceptable limits. Imaging is unremarkable. EKG is unremarkable. Labs are remarkable for a undetectable troponin. BNP is elevated, however but for his age is within acceptable limits. Patient has CK D and is currently at his baseline. On reevaluation, we reviewed his results. Plan is for admission for placement. We will trend his troponin however all of his symptoms are chronic. He was in agreement this plan. I spoke with the admitting physician Dr. Toney who accepted the patient. Undiagnosed new problem with uncertain prognosis? @ -No Drug Therapy requiring intensive monitoring for toxicity (Heparin, Nitro, Insulin, Cardizem)? @ -No Were any procedures done? @ -No Diagnosis/symptom? @ -Weakness, atypical chest pain, exertional dyspnea Acute, or Chronic, or Acute on Chronic? @ -Chronic Uncomplicated (without systemic symptoms) or Complicated (systemic symptoms)? @ -Complicated Side effects of treatment? @ -No Exacerbation, Progression, or Severe Exacerbation? @ -No Poses a threat to life or bodily function? How? (Chest pain, [place], [place], pneumonia, PE, COPD, DKA, ARF, appy, cholecystitis, CVA, Diverticulitis, Homicidal, Suicidal, threat to staff... and all critical care pts) @ -No Diagnosis/symptom? @ -Placement, debility Acute, or Chronic, or Acute on Chronic? @ -Acute Uncomplicated (without systemic symptoms) or Complicated (systemic symptoms)? @ -Complicated Side effects of treatment? @ -none Exacerbation, Progression, or Severe Exacerbation] @ -no Poses a threat to life or bodily function? @ -no - Lab Data Result diagrams: 08/18/22 20:06 08/18/22 20:06 Lab Results 08/18/22 08/18/22 08/18/22 Range/Units 20:06 20:06 20:06 WBC 10.6 (3.8-10.6) k/uL RBC 4.97 (4.30-5.90) m/uL Hgb 15.7 (13.0-17.5) gm/dL Hct 47.6 (39.0-53.0) % MCV 95.8 (80.0-100.0) fL MCH 31.6 (25.0-35.0) pg MCHC 33.0 (31.0-37.0) g/dL RDW 13.7 (11.5-15.5) % Plt Count 186 (150-450) k/uL MPV 7.9 Neutrophils % 69 % Lymphocytes % 17 % Monocytes % 8 % Eosinophils % 5 % Basophils % 0 % Neutrophils # 7.3 (1.3-7.7) k/uL Lymphocytes # 1.8 (1.0-4.8) k/uL Monocytes # 0.8 (0-1.0) k/uL Eosinophils # 0.5 (0-0.7) k/uL Basophils # 0.0 (0-0.2) k/uL PT 11.9 (9.0-12.0) sec INR 1.2 H (<1.2) APTT 27.6 (22.0-30.0) sec Sodium 140 (137-145) mmol/L Potassium 4.8 (3.5-5.1) mmol/L Chloride 106 (98-107) mmol/L Carbon Dioxide 29 (22-30) mmol/L Anion Gap 5 mmol/L BUN 28 H (9-20) mg/dL Creatinine 1.32 H (0.66-1.25) mg/dL Est GFR (CKD-EPI)AfAm 57 (>60 ml/min/1.73 sqM) Est GFR (CKD-EPI)NonAf 49 (>60 ml/min/1.73 sqM) Glucose 84 (74-99) mg/dL Calcium 9.1 (8.4-10.2) mg/dL Magnesium 2.1 (1.6-2.3) mg/dL Total Bilirubin 0.8 (0.2-1.3) mg/dL AST 39 (17-59) U/L ALT 41 (4-49) U/L Alkaline Phosphatase 74 (38-126) U/L Troponin I (0.000-0.034) ng/mL NT-Pro-B Natriuret Pep pg/mL Total Protein 6.4 (6.3-8.2) g/dL Albumin 3.7 (3.5-5.0) g/dL Lipase 85 (23-300) U/L Influenza Type A (PCR) (Not Detectd) Influenza Type B (PCR) (Not Detectd) RSV (PCR) (Not Detectd) SARS-CoV-2 (PCR) (Not Detectd) 08/18/22 08/18/22 08/18/22 Range/Units 20:06 20:06 20:06 WBC (3.8-10.6) k/uL RBC (4.30-5.90) m/uL Hgb (13.0-17.5) gm/dL Hct (39.0-53.0) % MCV (80.0-100.0) fL MCH (25.0-35.0) pg MCHC (31.0-37.0) g/dL RDW (11.5-15.5) % Plt Count (150-450) k/uL MPV Neutrophils % % Lymphocytes % % Monocytes % % Eosinophils % % Basophils % % Neutrophils # (1.3-7.7) k/uL Lymphocytes # (1.0-4.8) k/uL Monocytes # (0-1.0) k/uL Eosinophils # (0-0.7) k/uL Basophils # (0-0.2) k/uL PT (9.0-12.0) sec INR (<1.2) APTT (22.0-30.0) sec Sodium (137-145) mmol/L Potassium (3.5-5.1) mmol/L Chloride (98-107) mmol/L Carbon Dioxide (22-30) mmol/L Anion Gap mmol/L BUN (9-20) mg/dL Creatinine (0.66-1.25) mg/dL Est GFR (CKD-EPI)AfAm (>60 ml/min/1.73 sqM) Est GFR (CKD-EPI)NonAf (>60 ml/min/1.73 sqM) Glucose (74-99) mg/dL Calcium (8.4-10.2) mg/dL Magnesium (1.6-2.3) mg/dL Total Bilirubin (0.2-1.3) mg/dL AST (17-59) U/L ALT (4-49) U/L Alkaline Phosphatase (38-126) U/L Troponin I <0.012 (0.000-0.034) ng/mL NT-Pro-B Natriuret Pep 1650 pg/mL Total Protein (6.3-8.2) g/dL Albumin (3.5-5.0) g/dL Lipase (23-300) U/L Influenza Type A (PCR) Not Detected (Not Detectd) Influenza Type B (PCR) Not Detected (Not Detectd) RSV (PCR) Not Detected (Not Detectd) SARS-CoV-2 (PCR) Not Detected (Not Detectd) - EKG Data -: EKG Interpreted by Me EKG Comments: 12-lead Electrocardiogram Interpretation Note EKG was reviewed and interpreted by myself. 12-lead ECG performed at 1936 is interpreted by me as revealing sinus bradycardia at a rate of 51 beats per minute. Left axis deviation. PA interval is 96 ms, QRS ration is 103 ms, QTc is 440 ms.. There were no ST or T wave abnormalities to suggest myocardial ischemia or injury. R wave progression across the precordium was satisfactory. By my interpretation this EKG is non-diagnostic for acute ischemia. Disposition Clinical Impression: Atypical chest pain, Weakness Disposition: ADMITTED IP TO THIS HOSP Condition: Stable Time of Disposition: 21:32
[2022-08-19] MEDS ORDERED: DEXTROSE 50% SYRINGE 50 ML IVP PRN ×2 (00:34)
[2022-08-19 06:21] LABS: Glucose,Whole Blood 76 mg/dL (70-110)
[2022-08-19 06:48] LABS: Basophils % (A) 0 %; Eosinophils # (A) 0.6 k/uL (0-0.7); Eosinophils % (A) 6 %; HCT 46.3 % (39.0-53.0); Lymphocytes # (A) 2.1 k/uL (1.0-4.8); Lymphocytes % (A) 22 %; MCH 31.7 pg (25.0-35.0); MCHC 32.5 g/dL (31.0-37.0); MCV 97.5 fL (80.0-100.0); Mean Platelet Volume 8.2; Monocytes # (A) 0.8 k/uL (0-1.0); Monocytes % (A) 8 %; Neutrophils # (A) 5.9 k/uL (1.3-7.7); Neutrophils % (A) 62 %; Platelet Count 148 k/uL (150-450); RBC 4.74 m/uL (4.30-5.90); RDW 13.8 % (11.5-15.5); WBC 9.6 k/uL (3.8-10.6)
[2022-08-19] MEDS: INSULIN ASPART (NovoLOG) 100 UNIT/ML VIAL SQ SCH ×3 (06:48→17:08)
[2022-08-19 06:56] LABS: African American GFR (CKD) 75 (>60 ml/min/1.73 sqM); Anion Gap 3 mmol/L; Blood Urea Nitrogen 28 mg/dL (9-20); Calcium 8.6 mg/dL (8.4-10.2); Carbon Dioxide 28 mmol/L (22-30); Chloride 110 mmol/L (98-107); Glucose 76 mg/dL (74-99); Non-African American GFR(CKD) 65 (>60 ml/min/1.73 sqM); Potassium 4.3 mmol/L (3.5-5.1); Sodium 141 mmol/L (137-145)
[2022-08-19] MEDS: TAMSULOSIN 0.4 MG CAP.ER.24H PO SCH (08:46)
[2022-08-19] MEDS: FUROSEMIDE 40 MG TAB PO SCH ×2 (08:46→22:10)
[2022-08-19] MEDS: LEVOTHYROXINE 88 MCG TAB PO SCH (08:46)
[2022-08-19] MEDS: APIXABAN 5 MG TAB PO SCH (08:46)
[2022-08-19] MEDS: METOPROLOL SUCCINATE (ER) 100 MG TAB.ER.24H PO SCH (08:46)
[2022-08-19] MEDS: AMIODARONE 100 MG TAB PO SCH ×2 (08:47→22:11)
[2022-08-19 11:18] LABS: Appearance,Urine Clear (Clear); Bacteria,Urine Few /hpf; Bilirubin,Urine Negative (Negative); Blood,Urine Negative (Negative); Color,Urine Yellow; Glucose,Urine (UA) Negative (Negative); Ketones,Urine Negative (Negative); Leukocyte Esterase,Urine Negative (Negative); Mucus,Urine Rare /hpf; Nitrite,Urine Positive (Negative); Protein,Urine Negative (Negative); Specific Gravity,Urine 1.018 (1.001-1.035); Squamous Epithelial Cell,Urine <1 /hpf (0-4); Urobilinogen,Urine <2.0 mg/dL (<2.0); WBC,Urine 1 /hpf (0-5)
[2022-08-19 12:13] LABS: Glucose,Whole Blood 193 mg/dL (70-110)
--- NOTE | 2022-08-19 13:53 | P.HPIM ---
History of Present Illness Patient presented to ER with a competent of generalized weakness and family unable to take care of the patient. Patient did well with physical therapy although patient will require more care which family is unable to handle patient was worked up for for a any infection although infectious workup is negative. Although chest x-ray was read as there is a possible infiltrate patient clinically doesn't have any clinically doesn't have pneumonia, will be ordered patient doesn't have any fever or leukocytosis. patient denied any dysuria urine urinalysis didn't show any significant abnormality. 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 REVIEW OF SYSTEMS: CONSTITUTIONAL: No fever, no malaise, no fatigue. HEENT: No recent visual problems or hearing problems. Denied any sore throat. CARDIOVASCULAR: No chest pain, orthopnea, PND, no palpitations, no syncope. PULMONARY: No shortness of breath, no cough, no hemoptysis. GASTROINTESTINAL: No diarrhea, no nausea, no vomiting, no abdominal pain. NEUROLOGICAL: No headaches, no weakness, no numbness. HEMATOLOGICAL: Denies any bleeding or petechiae. GENITOURINARY: Denies any burning micturition, frequency, or urgency. MUSCULOSKELETAL/RHEUMATOLOGICAL: Denies any joint pain, swelling, or any muscle pain. ENDOCRINE: Denies any polyuria or polydipsia. The rest of the 14-point review of systems is negative. PHYSICAL EXAMINATION: GENERAL: The patient is alert and oriented x3, not in any acute distress. Well developed, well nourished. HEENT: Pupils are round and equally reacting to light. EOMI. No scleral icterus. No conjunctival pallor. Normocephalic, atraumatic. No pharyngeal erythema. No thyromegaly. CARDIOVASCULAR: S1 and S2 present. No murmurs, rubs, or gallops. PULMONARY: Chest is clear to auscultation, no wheezing or crackles. ABDOMEN: Soft, nontender, nondistended, normoactive bowel sounds. No palpable organomegaly. MUSCULOSKELETAL: No joint swelling or deformity. EXTREMITIES: No cyanosis, clubbing, or pedal edema. NEUROLOGICAL: Gross neurological examination did not reveal any focal deficits. Generalized weakness SKIN: No rashes. Assessment and plan -Generalized weakness due to multiple chronic medical problems and aging, physical therapy and outpatient therapy evaluated the patient patient will need more supervised care, patient is being evaluated for intermediate/subacute francesco abilitation placement. -Cut his heart failure chronic systolic dysfunction without any acute exacerb ation patient is euvolemic at this time patient resumed on home medications -Chronic kidney disease stage III -History of atrial fibrillation presently sinus rhythm resumed on home medications [place]-type 2 diabetes mellitus patient is bit hypoglycemic patient will be discharged on sliding scale insulin rest of the home regimen will be held -Hyperlipidemia -Hypothyroidism DVT prophylaxis: On anticoagulation which was resumed Past Medical History Past Medical History: Atrial Fibrillation, Heart Failure, Diabetes Mellitus, Hypertension, Thyroid Disorder Additional Past Medical History / Comment(s): CARDIAC ARRYTHMIA, states he " twice" Last Myocardial Infarction Date:: 2014 History of Any Multi-Drug Resistant Organisms: None Reported Past Surgical History: Back Surgery, Cardiac Ablation, Heart Catheterization Additional Past Surgical History / Comment(s): BACK SX -X2 WITH HARDWARE . PAIN PROCEDURES. Cardiac ablation X2 Past Anesthesia/Blood Transfusion Reactions: No Reported Reaction Past Psychological History: No Psychological Hx Reported Smoking Status: Never smoker Past Alcohol Use History: None Reported Past Drug Use History: None Reported - Past Family History Mother Family Medical History: Cancer Brother(s) Family Medical History: Cancer Medications and Allergies Home Medications Medication Instructions Recorded Confirmed Type Furosemide 40 mg PO BID 08/29/14 08/18/22 History Apixaban [Eliquis] 5 mg PO DAILY 10/28/15 08/18/22 History Pravastatin Sodium [Pravachol] 80 mg PO HS 10/28/15 08/18/22 History Ergocalciferol (Vitamin D2) 50,000 unit PO FR 09/21/16 08/18/22 History [Vitamin D2] Insulin Detemir (Levemir) [Levemir] 100 unit SQ DAILY 09/21/16 08/18/22 History Tamsulosin [Flomax] 0.4 mg PO DAILY 09/27/16 08/18/22 History Metoprolol Succinate [Toprol XL] 100 mg PO DAILY #90 tab.er.24h 10/05/17 08/18/22 Rx lisinopriL [Zestril] 2.5 mg PO HS 12/15/17 08/18/22 History Amiodarone HCl [Pacerone] 50 mg PO BID 08/19/20 08/18/22 History Insulin Aspart [NovoLOG] 10 units SQ BID 08/19/20 08/18/22 History Docusate [Colace] 100 mg PO BID PRN 08/18/22 08/18/22 History Levothyroxine Sodium [Synthroid] 88 mcg PO DAILY 08/18/22 08/18/22 History Allergies Allergy/AdvReac Type Severity Reaction Status Date / Time No Known Allergies Allergy Verified 08/18/22 21:45 Physical Exam Vitals: Vital Signs Temp Pulse Pulse Pulse Resp BP BP 08/19/22 08:00 97.4 F L 66 19 166/87 08/19/22 00:45 97.5 F L 69 18 183/77 08/19/22 00:39 53 L 20 172/79 08/18/22 19:21 98.9 F 55 L 18 108/57 Pulse Ox 08/19/22 08:00 94 L 08/19/22 00:45 95 08/19/22 00:39 94 L 08/18/22 19:21 92 L Intake and Output 08/18/22 08/19/22 08/19/22 22:59 06:59 14:59 Other: Voiding Method Toilet # Voids 1 1 Weight 86.183 kg 86.183 kg Results CBC & Chem 7: 08/19/22 06:15 08/19/22 06:15 Labs: Abnormal Lab Results - Last 24 Hours (Table) 08/18/22 08/18/22 08/19/22 Range/Units 20:06 20:06 06:15 Plt Count 148 L (150-450) k/uL INR 1.2 H (<1.2) Chloride (98-107) mmol/L BUN 28 H (9-20) mg/dL Creatinine 1.32 H (0.66-1.25) mg/dL POC Glucose (mg/dL) (70-110) mg/dL Urine Bacteria (None) /hpf Urine Mucus (None) /hpf 08/19/22 08/19/22 08/19/22 Range/Units 06:15 10:26 12:09 Plt Count (150-450) k/uL INR (<1.2) Chloride 110 H (98-107) mmol/L BUN 28 H (9-20) mg/dL Creatinine (0.66-1.25) mg/dL POC Glucose (mg/dL) 193 H (70-110) mg/dL Urine Bacteria Few H (None) /hpf Urine Mucus Rare H (None) /hpf Thrombosis Risk Factor Assmnt - Choose All That Apply Any of the Below Risk Factors Present?: Yes Each Factor Represents 1 point: Abnormal pulmonary function (COPD), Obesity (BMI >25), Swollen legs (current) Each Risk Factor Represents 3 Points: Age 75 years or older Thrombosis Risk Factor Assessment Total Risk Factor Score: 6 Thrombosis Risk Factor Assessment Level: High Risk
[2022-08-19 16:56] LABS: Glucose,Whole Blood 197 mg/dL (70-110)
[2022-08-19 21:50] LABS: Glucose,Whole Blood 213 mg/dL (70-110)
[2022-08-19] MEDS: PRAVASTATIN SODIUM 80 MG TAB PO SCH (22:11)
[2022-08-20 06:23] LABS: Glucose,Whole Blood 153 mg/dL (70-110)
[2022-08-20] MEDS: LEVOTHYROXINE 88 MCG TAB PO SCH (06:59)
[2022-08-20] MEDS: INSULIN ASPART (NovoLOG) 100 UNIT/ML VIAL SQ SCH ×3 (06:59→17:36)
[2022-08-20] MEDS: APIXABAN 5 MG TAB PO SCH (09:35)
[2022-08-20] MEDS: TAMSULOSIN 0.4 MG CAP.ER.24H PO SCH (09:35)
[2022-08-20] MEDS: FUROSEMIDE 40 MG TAB PO SCH ×2 (09:35→22:38)
[2022-08-20] MEDS: METOPROLOL SUCCINATE (ER) 100 MG TAB.ER.24H PO SCH (09:36)
[2022-08-20] MEDS: AMIODARONE 100 MG TAB PO SCH ×2 (09:36→22:38)
[2022-08-20 11:25] LABS: Glucose,Whole Blood 242 mg/dL (70-110)
--- NOTE | 2022-08-20 13:43 | P.PN ---
Subjective Patient presented to ER with a competent of generalized weakness and family unable to take care of the patient. Patient did well with physical therapy although patient will require more care which family is unable to handle patient was worked up for for a any infection although infectious workup is negative. Although chest x-ray was read as there is a possible infiltrate patient clinically doesn't have any clinically doesn't have pneumonia, will be ordered patient doesn't have any fever or leukocytosis. patient denied any dysuria urine urinalysis didn't show any significant abnormality. 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 08/20/2022 No Overnight events patient is awaiting discharge to subacute rehabilitation PHYSICAL EXAMINATION: GENERAL: The patient is alert and oriented x3, not in any acute distress. Well developed, well nourished. HEENT: Pupils are round and equally reacting to light. EOMI. No scleral icterus. No conjunctival pallor. Normocephalic, atraumatic. No pharyngeal erythema. No thyromegaly. CARDIOVASCULAR: S1 and S2 present. No murmurs, rubs, or gallops. PULMONARY: Chest is clear to auscultation, no wheezing or crackles. ABDOMEN: Soft, nontender, nondistended, normoactive bowel sounds. No palpable organomegaly. MUSCULOSKELETAL: No joint swelling or deformity. EXTREMITIES: No cyanosis, clubbing, or pedal edema. NEUROLOGICAL: Gross neurological examination did not reveal any focal deficits. Generalized weakness SKIN: No rashes. Assessment and plan -Generalized weakness due to multiple chronic medical problems and aging, physical therapy and outpatient therapy evaluated the patient patient will need more supervised care, patient is being evaluated for intermediate/subacute rehabilitation placement. -Cut his heart failure chronic systolic dysfunction without any acute exacerbation patient is euvolemic at this time patient resumed on home medications -Chronic kidney disease stage III -History of atrial fibrillation presently sinus rhythm resumed on home medications [place]-type 2 diabetes mellitus patient is bit hypoglycemic patient will be discharged on sliding scale insulin rest of the home regimen will be held -Hyperlipidemia -Hypothyroidism DVT prophylaxis: On anticoagulation which was resumed Objective - Vital Signs Vital signs: Vital Signs Temp 97.2 F L 08/20/22 08:00 Pulse 59 L 08/20/22 08:00 Resp 16 08/20/22 08:00 BP 142/56 08/20/22 08:00 Pulse Ox 93 L 08/20/22 08:00 FiO2 Intake & Output 08/19/22 08/20/22 08/20/22 18:59 06:59 18:59 Other: # Voids 2 0 1 - Labs CBC & Chem 7: 08/19/22 06:15 08/19/22 06:15 Labs: Abnormal Lab Results - Last 24 Hours (Table) 08/19/22 08/19/22 08/19/22 Range/Units 06:15 16:55 21:48 POC Glucose (mg/dL) 197 H 213 H (70-110) mg/dL Hemoglobin A1c 6.5 H (<=6.0) % 08/20/22 08/20/22 Range/Units 06:21 11:23 POC Glucose (mg/dL) 153 H 242 H (70-110) mg/dL Hemoglobin A1c (<=6.0) %
[2022-08-20 16:42] LABS: Glucose,Whole Blood 208 mg/dL (70-110)
[2022-08-20 21:36] LABS: Glucose,Whole Blood 214 mg/dL (70-110)
[2022-08-20] MEDS: PRAVASTATIN SODIUM 80 MG TAB PO SCH (22:38)
[2022-08-21 06:01] LABS: Glucose,Whole Blood 172 mg/dL (70-110)
[2022-08-21] MEDS: INSULIN ASPART (NovoLOG) 100 UNIT/ML VIAL SQ SCH ×3 (06:45→17:25)
[2022-08-21] MEDS: LEVOTHYROXINE 88 MCG TAB PO SCH (06:45)
[2022-08-21] MEDS: APIXABAN 5 MG TAB PO SCH (09:37)
[2022-08-21] MEDS: METOPROLOL SUCCINATE (ER) 100 MG TAB.ER.24H PO SCH (09:37)
[2022-08-21] MEDS: FUROSEMIDE 40 MG TAB PO SCH ×2 (09:37→21:18)
[2022-08-21] MEDS: AMIODARONE 100 MG TAB PO SCH ×2 (09:37→21:17)
[2022-08-21] MEDS: TAMSULOSIN 0.4 MG CAP.ER.24H PO SCH (09:38)
[2022-08-21 11:11] LABS: Glucose,Whole Blood 183 mg/dL (70-110)
--- NOTE | 2022-08-21 14:50 | P.PN ---
Subjective Progress Note Date: 08/21/22 Patient presented to ER with a competent of generalized weakness and family unable to take care of the patient. Patient did well with physical therapy although patient will require more care which family is unable to handle patient was worked up for for a any infection although infectious workup is negative. Although chest x-ray was read as there is a possible infiltrate patient clinically doesn't have any clinically doesn't have pneumonia, will be ordered patient doesn't have any fever or leukocytosis. patient denied any dysuria urine urinalysis didn't show any significant abnormality. 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 08/20/2022 No Overnight events patient is awaiting discharge to subacute rehabilitation 08/21/2022 Patient evaluated today resting in bed. No acute complaints. Blood glucose in the 200s to 180s. Hgb A1c found to be 6.5. Blood pressure is fluctuating between 160-110s systolic and heart rate in the mid 50s to 60s. Patent is having BMs, tolerating diet. Review of Systems Constitutional: Denied any fatigue denied any fever. Cardio vascular: denied any chest pain, palpitations Gastrointestinal: denied any nausea, vomiting, diarrhea Pulmonary: Denied any shortness of breath cough Neurologic denied any new focal deficits All inpatient medications were reviewed and appropriate changes in these medications as dictated in the interval history and assessment and plan. PHYSICAL EXAMINATION: GENERAL: The patient is alert and oriented x3, not in any acute distress. Well developed, well nourished. HEENT: Pupils are round and equally reacting to light. EOMI. No scleral icterus. No conjunctival pallor. Normocephalic, atraumatic. No pharyngeal erythema. No thyromegaly. CARDIOVASCULAR: S1 and S2 present. No murmurs, rubs, or gallops. PULMONARY: Chest is clear to auscultation, no wheezing or crackles. ABDOMEN: Soft, nontender, nondistended, normoactive bowel sounds. No palpable organomegaly. MUSCULOSKELETAL: No joint swelling or deformity. EXTREMITIES: No cyanosis, clubbing, or pedal edema. NEUROLOGICAL: Gross neurological examination did not reveal any focal deficits. Generalized weakness SKIN: No rashes. Assessment and plan -Generalized weakness due to multiple chronic medical problems and aging -Congestive heart failure chronic systolic dysfunction without any acute exacerbation patient is euvolemic -Chronic kidney disease stage III -Paroxysmal atrial fibrillation presently sinus rhythm/sinus bradycardia -Hx of cardiac ablation x 2 -Type 2 diabetes mellitus patient was hypoglycemic and now hyperglycemic off home medications A1C is 6.5 -Hyperlipidemia -Hypothyroidism DVT prophylaxis: On anticoagulation GI prophylaxis: Full Code Plan Recommend decreased metoprolol and monitor heart rate Continue all other home medications Recommend to continue off oral diabetic agents and continue on sliding scale insulin at this time monitor ACHS PT/OT recommending supervised care, patient is being evaluated for jail/subacute rehabilitation placement The impression and plan of care has been dictated by Shobha Huntley Nurse Practitioner as directed. Dr. Anjali MD I have performed a history and physical examination and medical decision making of this patient, discussed the same with the dictator, and agree with the dictators assessment and plan as written, documented as a scribe. Based on total visit time, I have performed more than 50% of this visit. Objective - Vital Signs Vital signs: Vital Signs Temp 98.3 F 08/21/22 07:47 Pulse 51 L 08/21/22 13:12 Resp 18 08/21/22 13:12 BP 119/69 08/21/22 13:12 Pulse Ox 95 08/21/22 13:12 FiO2 Intake & Output 08/20/22 08/21/22 08/21/22 18:59 06:59 18:59 Output Total 300 Balance -300 Output: Urine 300 Other: # Voids 1 2 # Bowel Movements 1 - Labs CBC & Chem 7: 08/19/22 06:15 08/19/22 06:15 Labs: Abnormal Lab Results - Last 24 Hours (Table) 08/20/22 08/20/22 08/21/22 Range/Units 16:38 21:34 05:59 POC Glucose (mg/dL) 208 H 214 H 172 H (70-110) mg/dL 08/21/22 Range/Units 11:07 POC Glucose (mg/dL) 183 H (70-110) mg/dL Assessment and Plan Time with Patient: Less than 30
[2022-08-21 16:35] LABS: Glucose,Whole Blood 215 mg/dL (70-110)
[2022-08-21 21:09] LABS: Glucose,Whole Blood 224 mg/dL (70-110)
[2022-08-21] MEDS: PRAVASTATIN SODIUM 80 MG TAB PO SCH (21:17)
[2022-08-21] MEDS: FAMOTIDINE 20 MG TAB PO SCH (21:18)
[2022-08-22 05:21] LABS: Glucose,Whole Blood 180 mg/dL (70-110)
[2022-08-22] MEDS: INSULIN ASPART (NovoLOG) 100 UNIT/ML VIAL SQ SCH ×3 (07:56→18:24)
[2022-08-22] MEDS: LEVOTHYROXINE 88 MCG TAB PO SCH (07:56)
[2022-08-22] MEDS: METOPROLOL SUCCINATE (ER) 50 MG TAB.ER.24H PO SCH ×2 (08:14→21:33)
[2022-08-22] MEDS: APIXABAN 5 MG TAB PO SCH (08:14)
[2022-08-22] MEDS: FAMOTIDINE 20 MG TAB PO SCH ×2 (08:14→21:32)
[2022-08-22] MEDS: AMIODARONE 100 MG TAB PO SCH ×2 (08:15→21:33)
[2022-08-22] MEDS: FUROSEMIDE 40 MG TAB PO SCH ×2 (08:15→21:33)
[2022-08-22] MEDS: TAMSULOSIN 0.4 MG CAP.ER.24H PO SCH (08:15)
[2022-08-22 11:23] LABS: Glucose,Whole Blood 240 mg/dL (70-110)
[2022-08-22 16:30] LABS: Glucose,Whole Blood 228 mg/dL (70-110)
[2022-08-22 20:13] LABS: Glucose,Whole Blood 241 mg/dL (70-110)
[2022-08-22] MEDS: PRAVASTATIN SODIUM 80 MG TAB PO SCH (21:32)
--- NOTE | 2022-08-23 06:01 | P.PN ---
Subjective Progress Note Date: 08/22/22 Patient presented to ER with a competent of generalized weakness and family unable to take care of the patient. Patient did well with physical therapy although patient will require more care which family is unable to handle patient was worked up for for a any infection although infectious workup is negative. Although chest x-ray was read as there is a possible infiltrate patient clinically doesn't have any clinically doesn't have pneumonia, will be ordered patient doesn't have any fever or leukocytosis. patient denied any dysuria urine urinalysis didn't show any significant abnormality. 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 08/20/2022 No Overnight events patient is awaiting discharge to subacute rehabilitation 08/21/2022 Patient evaluated today resting in bed. No acute complaints. Blood glucose in the 200s to 180s. Hgb A1c found to be 6.5. Blood pressure is fluctuating between 160-110s systolic and heart rate in the mid 50s to 60s. Patent is having BMs, tolerating diet. 08/22/2022 Patient is seen and evaluated and follow-up with social work following an [facility] has declined the patient. Working on other ECF as patient continues to report weakness. Awaiting PT/OT therapy evaluation today and will follow-up with social work. Patient is afebrile denies chest pain or shortness of breath. Patient reports tolerating diet and recommend monitoring Accu-Cheks before meals and at bedtime. Review of Systems Constitutional: Denied any fatigue denied any fever. Cardio vascular: denied any chest pain, palpitations Gastrointestinal: denied any nausea, vomiting, diarrhea Pulmonary: Denied any shortness of breath cough Neurologic denied any new focal deficits PHYSICAL EXAMINATION: GENERAL: The patient is alert and oriented x3, obese. Well developed, well nourished. HEENT: Pupils are round and equally reacting to light. EOMI. No scleral icterus. No conjunctival pallor. Normocephalic, atraumatic. No pharyngeal erythema. No thyromegaly. CARDIOVASCULAR: S1 and S2 muffled PULMONARY: Chest is clear to auscultation, no wheezing or crackles. ABDOMEN: Soft, nontender, nondistended, normoactive bowel sounds. No palpable organomegaly. MUSCULOSKELETAL: No joint swelling or deformity. EXTREMITIES: No cyanosis, clubbing, or pedal edema. NEUROLOGICAL: Gross neurological examination did not reveal any focal deficits. Generalized weakness SKIN: No rashes. Assessment: -Generalized weakness due to multiple chronic medical problems and aging -Congestive heart failure chronic systolic dysfunction without any acute exacerbation patient is euvolemic -Chronic kidney disease stage III -Paroxysmal atrial fibrillation presently sinus rhythm/sinus bradycardia -Hx of cardiac ablation x 2 -Type 2 diabetes mellitus patient was hypoglycemic and now hyperglycemic off home medications A1C is 6.5 -Hyperlipidemia -Hypothyroidism -DVT prophylaxis: On anticoagulation -GI prophylaxis: -Full Code Plan: Recommend to continue current medications Recommend to continue off oral diabetic agents and continue on sliding scale insulin at this time monitor ACHS PT/OT recommending supervised care, patient is being evaluated for snf/subacute rehabilitation with social work following working on possible except in ECF Will follow-up with social work in the a.m. Possible discharge in the next 24-48 hours The impression and plan of care has been dictated by Noemy Avila, Nurse Practitioner as directed. Dr. Elias MD I have performed a history and examination and MDM of this patient, discussed th e same with the dictator, and agree with the dictator's assessment and plan as written ,documented as a scribe. Based on total visit time, I have performed more than 50% of the visit. Objective - Vital Signs Vital signs: Vital Signs Temp 98.2 F 08/22/22 14:00 Pulse 58 L 08/22/22 14:00 Resp 16 08/22/22 14:00 BP 126/64 08/22/22 14:00 Pulse Ox 96 08/22/22 14:00 FiO2 Intake & Output 08/21/22 08/22/22 08/22/22 18:59 06:59 18:59 Intake Total 200 Balance 200 Intake: Oral 200 Other: Voiding Method Toilet Toilet # Voids 1 # Bowel Movements 1 - Labs CBC & Chem 7: 08/19/22 06:15 08/19/22 06:15 Labs: Abnormal Lab Results - Last 24 Hours (Table) 08/21/22 08/21/22 08/22/22 Range/Units 16:34 20:56 05:20 POC Glucose (mg/dL) 215 H 224 H 180 H (70-110) mg/dL 08/22/22 Range/Units 11:21 POC Glucose (mg/dL) 240 H (70-110) mg/dL
[2022-08-23] MEDS: LEVOTHYROXINE 88 MCG TAB PO SCH (06:23)
[2022-08-23 06:25] LABS: Glucose,Whole Blood 226 mg/dL (70-110)
[2022-08-23] MEDS: METOPROLOL SUCCINATE (ER) 50 MG TAB.ER.24H PO SCH ×2 (08:32→21:16)
[2022-08-23] MEDS: INSULIN ASPART (NovoLOG) 100 UNIT/ML VIAL SQ SCH ×3 (08:32→17:12)
[2022-08-23] MEDS: APIXABAN 5 MG TAB PO SCH (08:32)
[2022-08-23] MEDS: FAMOTIDINE 20 MG TAB PO SCH (08:32)
[2022-08-23] MEDS: AMIODARONE 100 MG TAB PO SCH ×2 (08:32→21:16)
[2022-08-23] MEDS: FUROSEMIDE 40 MG TAB PO SCH ×2 (08:33→21:16)
[2022-08-23] MEDS: TAMSULOSIN 0.4 MG CAP.ER.24H PO SCH (08:33)
[2022-08-23 10:17] LABS: BUN/Creat Ratio 23.08 Ratio (12.00-20.00); Calcium 9.3 mg/dL (8.7-10.3); Carbon Dioxide 27.4 mmol/L (21.6-31.8); Chloride 106 mmol/L (96-109); Glucose 197 mg/dL (70-110); Potassium 4.1 mmol/L (3.5-5.5); Sodium 145 mmol/L (135-145)
[2022-08-23 11:38] LABS: Glucose,Whole Blood 251 mg/dL (70-110)
[2022-08-23] MEDS ORDERED: DOCUSATE 100 MG CAP PO PRN (16:46)
--- NOTE | 2022-08-23 16:46 | P.PN ---
Subjective Progress Note Date: 08/23/22 Patient presented to ER with a competent of generalized weakness and family unable to take care of the patient. Patient did well with physical therapy although patient will require more care which family is unable to handle patient was worked up for for a any infection although infectious workup is negative. Although chest x-ray was read as there is a possible infiltrate patient clinically doesn't have any clinically doesn't have pneumonia, will be ordered patient doesn't have any fever or leukocytosis. patient denied any dysuria urine urinalysis didn't show any significant abnormality. 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 08/20/2022 No Overnight events patient is awaiting discharge to subacute rehabilitation 08/21/2022 Patient evaluated today resting in bed. No acute complaints. Blood glucose in the 200s to 180s. Hgb A1c found to be 6.5. Blood pressure is fluctuating between 160-110s systolic and heart rate in the mid 50s to 60s. Patent is having BMs, tolerating diet. 08/22/2022 Patient is seen and evaluated and follow-up with social work following an [facility] has declined the patient. Working on other ECF as patient continues to report weakness. Awaiting PT/OT therapy evaluation today and will follow-up with social work. Patient is afebrile denies chest pain or shortness of breath. Patient reports tolerating diet and recommend monitoring Accu-Cheks before meals and at bedtime. 08/23/2022 Patient Is seen in follow-up this morning with daughter at the bedside. Per social work insurance has denied requesting peer to peer evaluation for possible approval to go to ECF. Attempted although close due to the holiday and needs to be completed by 08/24 at noon. Afebrile continues to report he wants to go home and denies chest pain or shortness of breath. Blood sugars being monitored and will recommend continuing with Accu-Cheks before meals and at bedtime. Review of Systems Constitutional: Denied any fatigue denied any fever. Cardio vascular: denied any chest pain, palpitations Gastrointestinal: denied any nausea, vomiting, diarrhea Pulmonary: Denied any shortness of breath cough Neurologic denied any new focal deficits PHYSICAL EXAMINATION: GENERAL: The patient is alert and oriented x3, obese. Well developed, well nourished. HEENT: Pupils are round and equally reacting to light. EOMI. No scleral icterus. No conjunctival pallor. Normocephalic, atraumatic. No pharyngeal erythema. No thyromegaly. CARDIOVASCULAR: S1 and S2 muffled PULMONARY: Chest is clear to auscultation, no wheezing or crackles. ABDOMEN: Soft, nontender, nondistended, normoactive bowel sounds. No palpable organomegaly. MUSCULOSKELETAL: No joint swelling or deformity. EXTREMITIES: No cyanosis, clubbing, or pedal edema. NEUROLOGICAL: Gross neurological examination did not reveal any focal deficits. Generalized weakness SKIN: No rashes. Assessment: -Generalized weakness due to multiple chronic medical problems and aging -Congestive heart failure chronic systolic dysfunction without any acute exacerbation patient is euvolemic -Chronic kidney disease stage III -Paroxysmal atrial fibrillation presently sinus rhythm/sinus bradycardia -Hx of cardiac ablation x 2 -Type 2 diabetes mellitus patient was hypoglycemic and now hyperglycemic off home medications A1C is 6.5 -Hyperlipidemia -Hypothyroidism -DVT prophylaxis: On anticoagulation -GI prophylaxis: -Full Code Plan: Recommend to continue current medications Recommend to continue off oral diabetic agents and continue on sliding scale insulin at this time monitor ACHS PT/OT recommending supervised care, patient is being evaluated for residential /subacute rehabilitation with social work following working on possible ECF Insurance authorization was denied and insurance is requesting peer to peer to be done by 08/24 at noon. Attempted To call today although closed due to holiday Will follow-up with social work in the a.m. Possible discharge in the next 24-48 hours The impression and plan of care has been dictated by Noemy Avila, Nurse Practitioner as directed. Dr. Elias MD I have performed a history and examination and MDM of this patient, discussed the same with the dictator, and agree with the dictator's assessment and plan as written ,documented as a scribe. Based on total visit time, I have performed more than 50% of the visit. Objective - Vital Signs Vital signs: Vital Signs Temp 97.6 F 08/23/22 01:32 Pulse 62 08/23/22 06:59 Resp 18 08/23/22 06:59 BP 150/75 08/23/22 06:59 Pulse Ox 96 08/23/22 06:59 FiO2 Intake & Output 08/22/22 08/23/22 08/23/22 18:59 06:59 18:59 Intake Total 400 Balance 400 Intake: Oral 400 Other: Voiding Method Toilet Toilet # Voids 3 2 - Labs CBC & Chem 7: 08/19/22 06:15 08/23/22 05:59 Labs: Abnormal Lab Results - Last 24 Hours (Table) 08/22/22 08/22/22 08/22/22 Range/Units 11:21 16:28 20:10 POC Glucose (mg/dL) 240 H 228 H 241 H (70-110) mg/dL 08/23/22 Range/Units 06:20 POC Glucose (mg/dL) 226 H (70-110) mg/dL
[2022-08-23 16:48] LABS: Glucose,Whole Blood 237 mg/dL (70-110)
[2022-08-23] MEDS ORDERED: INSULIN DETEMIR (LEVEMIR) 100 UNIT/ML SYR SQ SCH (21:00)
[2022-08-23] MEDS: PRAVASTATIN SODIUM 80 MG TAB PO SCH (21:16)
[2022-08-24 06:12] LABS: Glucose,Whole Blood 178 mg/dL (70-110)
[2022-08-24] MEDS: LEVOTHYROXINE 88 MCG TAB PO SCH (06:36)
[2022-08-24 07:46] LABS: Glucose,Whole Blood 216 mg/dL (70-110)
[2022-08-24] MEDS: INSULIN ASPART (NovoLOG) 100 UNIT/ML VIAL SQ SCH ×2 (07:59→12:33)
[2022-08-24] MEDS: METOPROLOL SUCCINATE (ER) 50 MG TAB.ER.24H PO SCH (07:59)
[2022-08-24] MEDS: FUROSEMIDE 40 MG TAB PO SCH (07:59)
[2022-08-24] MEDS: APIXABAN 5 MG TAB PO SCH (07:59)
[2022-08-24] MEDS: TAMSULOSIN 0.4 MG CAP.ER.24H PO SCH (07:59)
[2022-08-24] MEDS: AMIODARONE 100 MG TAB PO SCH (08:00)
[2022-08-24] MEDS ORDERED: FAMOTIDINE 20 MG TAB PO SCH (09:00)
[2022-08-24 10:03] VITALS: BP 138/56; PULSE 56; RESP 18; TEMP 97.5
--- NOTE | 2022-08-24 11:42 | P.DS ---
Providers Date of admission: 08/18/22 22:02 Expected date of discharge: 08/24/22 Attending physician: Orlando Toney Primary care physician: Orlando Toney Hospital Course: Discharge diagnosis 1. Generalized weakness 2. Chronic systolic congestive heart failure 3. Chronic kidney disease stage III 4. History of proximal atrial fibrillation 5. History of cardiac ablation 6. history of diabetes mellitus type 2. Hemoglobin A1c 6.5 7. History of hyperlipidemia 8. History of hypothyroidism Hospital course This is a 87-year-old male patient who presented to the ER with concerns of g eneralized weakness. Apparently patient's family was worried he would be unable to care for him home. Patient was negative for any signs of infection. Patient has a past medical history of CHF, chronic kidney disease, diabetes mellitus, hypertension and thyroid disorder. Patient was evaluated by PT OT. Social work services attempting to discharge patient to ECF for patient did not qualify. P felicity's blood sugar upon arrival was 76. Hemoglobin A1c 6.5. Dr. Griffin's group was covering from 08/19/2022 to 08/23/2022 On 08/24/2022 patient was declined for ECF. peer to peer was completed but declined. Patient will be DC'd home with home healthcare. Patient's home long- acting insulin dose decreased. Patient to follow-up with PCP for further management. At this time patient denies chest pain or shortness of breath. Patient denies nausea vomiting or diarrhea. Patient any urinary burning or frequency Patient Condition at Discharge: Stable Plan - Discharge Summary Discharge Rx Participant: Yes New Discharge Prescriptions: New Metoprolol Succinate (ER) [Toprol XL] 50 mg PO BID 30 Days #60 tab Continue Furosemide 40 mg PO BID Pravastatin Sodium [Pravachol] 80 mg PO HS Apixaban [Eliquis] 5 mg PO DAILY Ergocalciferol (Vitamin D2) [Vitamin D2] 50,000 unit PO FR Tamsulosin [Flomax] 0.4 mg PO DAILY lisinopriL [Zestril] 2.5 mg PO HS Amiodarone HCl [Pacerone] 50 mg PO BID Insulin Aspart [NovoLOG] 10 units SQ BID Levothyroxine Sodium [Synthroid] 88 mcg PO DAILY Docusate [Colace] 100 mg PO BID PRN PRN Reason: Constipation Changed Insulin Detemir (Levemir) [Levemir] 80 unit SQ DAILY #0 Discontinued Metoprolol Succinate [Toprol XL] 100 mg PO DAILY #90 tab.er.24h Discharge Medication List Furosemide 40 mg PO BID 08/29/14 [History] Apixaban [Eliquis] 5 mg PO DAILY 10/28/15 [History] Pravastatin Sodium [Pravachol] 80 mg PO HS 10/28/15 [History] Ergocalciferol (Vitamin D2) [Vitamin D2] 50,000 unit PO FR 09/21/16 [History] Tamsulosin [Flomax] 0.4 mg PO DAILY 09/27/16 [History] lisinopriL [Zestril] 2.5 mg PO HS 12/15/17 [History] Amiodarone HCl [Pacerone] 50 mg PO BID 08/19/20 [History] Insulin Aspart [NovoLOG] 10 units SQ BID 08/19/20 [History] Docusate [Colace] 100 mg PO BID PRN 08/18/22 [History] Levothyroxine Sodium [Synthroid] 88 mcg PO DAILY 08/18/22 [History] Insulin Detemir (Levemir) [Levemir] 80 unit SQ DAILY #0 08/24/22 [Rx] Metoprolol Succinate (ER) [Toprol XL] 50 mg PO BID 30 Days #60 tab 08/24/22 [Rx] Follow up Appointment(s)/Referral(s): [facility], [NON-STAFF] - 1 Week ([facility] will call you to arrange a visit) Orlando Toney MD [Primary Care Provider] - 1-2 days Activity/Diet/Wound Care/Special Instructions: Patient to monitor blood sugars twice daily at home Discharge Disposition: HOME SELF-CARE
[2022-08-24 12:05] LABS: Glucose,Whole Blood 342 mg/dL (70-110)
[2022-08-26] MEDS ORDERED: ERGOCALCIFEROL 1,250 MCG (50,000 IU) CAPSULE PO SCH (16:46)
== END 2022-08-24 14:07 | disposition home or self-care (01) | DRG 884 ==
LOC: EC 19:18 → 4SSUR 22:02
PROVIDERS: ADMIT Internal Medicine; ATTEND Internal Medicine
DX: R41.81 Age-related cognitive decline (principal); I13.0 Hypertensive heart and chronic kidney disease with heart failure and stage 1 through stage 4 chronic kidney disease, or unspecified chronic kidney disease; I50.22 Chronic systolic (congestive) heart failure; E11.649 Type 2 diabetes mellitus with hypoglycemia without coma; E11.22 Type 2 diabetes mellitus with diabetic chronic kidney disease; N18.30 Chronic kidney disease, stage 3 unspecified; E11.65 Type 2 diabetes mellitus with hyperglycemia; E03.9 Hypothyroidism, unspecified; I48.0 Paroxysmal atrial fibrillation; E78.5 Hyperlipidemia, unspecified; R00.1 Bradycardia, unspecified; I25.10 Atherosclerotic heart disease of native coronary artery without angina pectoris; R07.89 Other chest pain; Z20.822 Contact with and (suspected) exposure to COVID-19; Z66 Do not resuscitate; Z74.2 Need for assistance at home and no other household member able to render care; Z79.01 Long term (current) use of anticoagulants; I25.2 Old myocardial infarction; Z79.899 Other long term (current) drug therapy; Z79.890 Hormone replacement therapy; Z79.4 Long term (current) use of insulin
CPT/HCPCS: 36415; 71046; 80048; 80053; 81001; 83036; 83690; 83735; 83880; 84484; 85025; 85610; 85730; 87636; 93005; 94760; 99285

== ENCOUNTER 2023-01-18 15:52 | Emergency (ER) | payer MEDICARE, OTHER ==
[2023-01-18 16:15] VITALS: TEMP 98.4
[2023-01-18 16:35] LABS: Basophils % (A) 0 %; Eosinophils # (A) 0.3 k/uL (0-0.7); Eosinophils % (A) 3 %; HCT 46.8 % (39.0-53.0); HGB 15.1 gm/dL (13.0-17.5); Lymphocytes # (A) 1.7 k/uL (1.0-4.8); Lymphocytes % (A) 19 %; MCHC 32.2 g/dL (31.0-37.0); MCV 96.3 fL (80.0-100.0); Mean Platelet Volume 7.9; Monocytes # (A) 0.6 k/uL (0-1.0); Monocytes % (A) 6 %; Neutrophils # (A) 6.2 k/uL (1.3-7.7); Neutrophils % (A) 69 %; Platelet Count 167 k/uL (150-450); RBC 4.86 m/uL (4.30-5.90); RDW 13.8 % (11.5-15.5); WBC 8.9 k/uL (3.8-10.6)
[2023-01-18 16:43] LABS: Partial Thromboplastin Time 26.2 sec (22.0-30.0); Prothrombin Time 11.2 sec (10.0-12.5)
[2023-01-18 16:47] LABS: ALT 28 U/L (4-49); AST 24 U/L (17-59); African American GFR (CKD) 74 (>60 ml/min/1.73 sqM); Albumin 3.5 g/dL (3.5-5.0); Alkaline Phosphatase 63 U/L (38-126); Anion Gap 7 mmol/L; Blood Urea Nitrogen 29 mg/dL (9-20); Calcium 9.1 mg/dL (8.4-10.2); Carbon Dioxide 27 mmol/L (22-30); Chloride 105 mmol/L (98-107); Glucose 176 mg/dL (74-99); Non-African American GFR(CKD) 64 (>60 ml/min/1.73 sqM); Potassium 4.8 mmol/L (3.5-5.1); Sodium 139 mmol/L (137-145); Total Bilirubin 0.6 mg/dL (0.2-1.3); Total Protein 6.1 g/dL (6.3-8.2)
--- NOTE | 2023-01-18 16:53 | ED ---
Chest Pain HPI - General Chief Complaint: Chest Pain Stated Complaint: Chest Pain,Weakness Time Seen by Provider: 01/18/23 16:30 Source: patient, family Mode of arrival: wheelchair Limitations: no limitations - History of Present Illness MD Complaint: other - Related Data Home Medications Medication Instructions Recorded Confirmed Furosemide 40 mg PO BID 08/29/14 08/18/22 Apixaban [Eliquis] 5 mg PO DAILY 10/28/15 08/18/22 Pravastatin Sodium [Pravachol] 80 mg PO HS 10/28/15 08/18/22 Ergocalciferol (Vitamin D2) 50,000 unit PO FR 09/21/16 08/18/22 [Vitamin D2] Tamsulosin [Flomax] 0.4 mg PO DAILY 09/27/16 08/18/22 lisinopriL [Zestril] 2.5 mg PO HS 12/15/17 08/18/22 Amiodarone HCl [Pacerone] 50 mg PO BID 08/19/20 08/18/22 Insulin Aspart [NovoLOG] 10 units SQ BID 08/19/20 08/18/22 Docusate [Colace] 100 mg PO BID PRN 08/18/22 08/18/22 Levothyroxine Sodium [Synthroid] 88 mcg PO DAILY 08/18/22 08/18/22 Previous Rx's Medication Instructions Recorded Insulin Detemir (Levemir) [Levemir] 80 unit SQ DAILY #0 08/24/22 Metoprolol Succinate (ER) [Toprol 50 mg PO BID 30 Days #60 tab 08/24/22 XL] Allergies Allergy/AdvReac Type Severity Reaction Status Date / Time No Known Allergies Allergy Verified 08/18/22 21:45 Review of Systems ROS Statement: Those systems with pertinent positive or pertinent negative responses have been documented in the HPI. ROS Other: All systems not noted in ROS Statement are negative. EKG Findings - EKG Results: EKG: interpreted by OLEKSANDR, sinus rhythm (Rate 55 bpm) EKG shows: bradycardia - Blocks, [place], Hypertrophy, ST Abn: AV and intraventricular conduction: left bundle branch block (fixed /intermittent, complete/incomplete) Past Medical History Past Medical History: Atrial Fibrillation, Heart Failure, Diabetes Mellitus, Hypertension, Thyroid Disorder Additional Past Medical History / Comment(s): CARDIAC ARRYTHMIA, states he " twice" Last Myocardial Infarction Date:: 2014 History of Any Multi-Drug Resistant Organisms: None Reported Past Surgical History: Back Surgery, Cardiac Ablation, Heart Catheterization Additional Past Surgical History / Comment(s): BACK SX -X2 WITH HARDWARE . PAIN PROCEDURES. Cardiac ablation X2 Past Anesthesia/Blood Transfusion Reactions: No Reported Reaction Past Psychological History: No Psychological Hx Reported Smoking Status: Never smoker Past Alcohol Use History: None Reported Past Drug Use History: None Reported - Past Family History Mother Family Medical History: Cancer Brother(s) Family Medical History: Cancer General Exam Limitations: no limitations Course Vital Signs 01/18/23 15:59 Temperature 98.4 F Pulse Rate 57 L Respiratory 16 Rate Blood Pressure 150/74 O2 Sat by Pulse 95 Oximetry Disposition Referrals: Orlando Toney MD [Primary Care Provider] - 1-2 days
--- NOTE | 2023-01-18 17:08 | XR ---
EXAMINATION TYPE: XR chest 2V DATE OF EXAM: 01/18/2023 4:52 PM CLINICAL INDICATION:Male, 87 years old with history of Chest Pain; [facility] COMPARISON: Chest radiographs from 08/18/2022 TECHNIQUE: XR chest 2V Frontal and lateral views of the chest. FINDINGS: Lungs/Pleura: There is no evidence of pleural effusion, focal consolidation, or pneumothorax. Pulmonary vascularity: Unremarkable. Heart/mediastinum: Cardiomediastinal silhouette is enlarged and stable. Musculoskeletal: No acute osseous pathology. Other findings: None IMPRESSION: Low lung volumes with a generalized hazy appearance which could represent atelectasis versus pulmonar y edema correlate with serum BNP.
--- NOTE | 2023-01-18 17:31 | ED ---
General Adult HPI - General Chief complaint: Chest Pain Stated complaint: Chest Pain,Weakness Time Seen by Provider: 01/18/23 16:30 Source: patient, family Mode of arrival: wheelchair Limitations: no limitations - History of Present Illness Initial comments: 's patient is an 87-year-old man here to have evaluation for not feeling well. The patient states that he has been feeling weaker than usual, he states that he gets exertional dyspnea when he tries to walk around the home. The patient had also describes some thoracic back and some chest pain in triage, but when I see the patient, he treatments the back pain to injury he had 62 years ago, req uiring 2 subsequent surgeries. He stated that the chest pain is not bothering him at the moment. Patient denies fever or chills. No dyspnea at rest. No cough. No diaphoresis, palpitations, syncope, nausea or vomiting. -: week(s) Location: chest Severity scale (1-10): 0 Consistency: now resolved Improves with: none Worsens with: none Associated Symptoms: weakness Treatments Prior to Arrival: none - Related Data Home Medications Medication Instructions Recorded Confirmed Furosemide 40 mg PO BID 08/29/14 08/18/22 Apixaban [Eliquis] 5 mg PO DAILY 10/28/15 08/18/22 Pravastatin Sodium [Pravachol] 80 mg PO HS 10/28/15 08/18/22 Ergocalciferol (Vitamin D2) 50,000 unit PO FR 09/21/16 08/18/22 [Vitamin D2] Tamsulosin [Flomax] 0.4 mg PO DAILY 09/27/16 08/18/22 lisinopriL [Zestril] 2.5 mg PO HS 12/15/17 08/18/22 Amiodarone HCl [Pacerone] 50 mg PO BID 08/19/20 08/18/22 Insulin Aspart [NovoLOG] 10 units SQ BID 08/19/20 08/18/22 Docusate [Colace] 100 mg PO BID PRN 08/18/22 08/18/22 Levothyroxine Sodium [Synthroid] 88 mcg PO DAILY 08/18/22 08/18/22 Previous Rx's Medication Instructions Recorded Insulin Detemir (Levemir) [Levemir] 80 unit SQ DAILY #0 08/24/22 Metoprolol Succinate (ER) [Toprol 50 mg PO BID 30 Days #60 tab 08/24/22 XL] Allergies Allergy/AdvReac Type Severity Reaction Status Date / Time No Known Allergies Allergy Verified 08/18/22 21:45 Review of Systems ROS Statement: Those systems with pertinent positive or pertinent negative responses have been documented in the HPI. ROS Other: All systems not noted in ROS Statement are negative. Constitutional: Reports: weakness. Denies: fever, chills Respiratory: Denies: cough, dyspnea, hemoptysis Cardiovascular: Reports: as per HPI, chest pain. Denies: palpitations, orthopnea, edema, syncope Gastrointestinal: Denies: abdominal pain, vomiting, diarrhea Genitourinary: Denies: dysuria, hematuria Musculoskeletal: Reports: back pain (Chronic) Skin: Denies: rash Neurological: Denies: headache, weakness Past Medical History Past Medical History: Atrial Fibrillation, Heart Failure, Diabetes Mellitus, Hypertension, Thyroid Disorder Additional Past Medical History / Comment(s): CARDIAC ARRYTHMIA, states he " twice" Last Myocardial Infarction Date:: 2014 History of Any Multi-Drug Resistant Organisms: None Reported Past Surgical History: Back Surgery, Cardiac Ablation, Heart Catheterization Additional Past Surgical History / Comment(s): BACK SX -X2 WITH HARDWARE . PAIN PROCEDURES. Cardiac ablation X2 Past Anesthesia/Blood Transfusion Reactions: No Reported Reaction Past Psychological History: No Psychological Hx Reported Smoking Status: Never smoker Past Alcohol Use History: None Reported Past Drug Use History: None Reported - Past Family History Mother Family Medical History: Cancer Brother(s) Family Medical History: Cancer General Exam Limitations: no limitations General appearance: alert, in no apparent distress Head exam: Present: atraumatic, normocephalic Eye exam: Present: normal appearance. Absent: scleral icterus, conjunctival injection ENT exam: Present: normal oropharynx Neck exam: Present: normal inspection, full ROM Respiratory exam: Present: normal lung sounds bilaterally. Absent: respiratory distress, wheezes, rales, rhonchi, stridor Cardiovascular Exam: Present: regular rate, irregular rhythm (Patient has relatively frequent dropped beats), normal heart sounds. Absent: systolic mur mur, diastolic murmur, rubs, gallop GI/Abdominal exam: Present: soft. Absent: distended, tenderness, guarding, rebound, rigid, mass Extremities exam: Present: normal inspection, normal capillary refill. Absent: pedal edema, calf tenderness Back exam: Present: normal inspection. Absent: CVA tenderness (R), CVA tenderness (L) Neurological exam: Present: alert Skin exam: Present: warm, dry, intact, normal color. Absent: rash Course Vital Signs 01/18/23 01/18/23 01/18/23 15:59 18:31 21:03 Temperature 98.4 F Pulse Rate 57 L 52 L 56 L Respiratory 16 18 18 Rate Blood Pressure 150/74 139/94 176/86 O2 Sat by Pulse 95 96 97 Oximetry Medical Decision Making - Medical Decision Making I had a lengthy discussion at the bedside with the patient and his daughter regarding the exam findings, the results of studies, and offered admission to see about a rehabilitation placement. The patient states that he had gone for rehab placement a few years ago and came out of the jail worse anyone in. Patient's daughter feels that course of physical therapy would be of benefit, and they will follow with his primary physician to set this up. We di scussed further care and follow-up as well as return parameters. The patient had chest x-ray which I interpreted as negative for acute infiltrate, congestive heart failure, pneumothorax Was pt. sent in by a medical professional or institution (, PA, [facility] [employer], urgent care, hospital, or jail...) When possible be specific @ -[No] Did you speak to anyone other than the patient for history (EMS, parent, family, police, friend...)? What history was obtained from this source @ -[Patient's daughter contributed some history Did you review nursing and triage notes (agree or disagree)? Why? @ -[I reviewed and agree with nursing and triage notes] Were old charts reviewed (outside hosp., previous admission, EMS record, old EKG, old radiological studies, urgent care reports/EKG's, jail records)? Report findings @ -[No old charts were reviewed] Differential Diagnosis (chest pain, altered mental status, abdominal pain women, abdominal pain men, vaginal bleeding, weakness, fever, dyspnea, syncope, headache, dizziness, GI bleed, back pain, seizure, CVA, palpatations, mental health, musculoskeletal)? @ -[Differential Chest Pain: Stable Angina, Unstable Angina, STEMI, NSTEMI Aortic Dissection, Pneumothorax, Musculoskeletal, Esophageal Spasm GERD, Cholecystitis, Pancreatitis, Zoster, this is not meant to be an all-inclusive list. EKG interpreted by me (3pts min.). @ -[As above] X-rays interpreted by me (1pt min.). @ -[I interpreted as above CT interpreted by me (1pt min.). @ -[None done] U/S interpreted by me (1pt. min.). @ -[None done] What testing was considered but not performed or refused? (CT, X-rays, U/S, labs)? Why? @ -[None] What meds were considered but not given or refused? Why? @ -[None] Did you discuss the management of the patient with other professionals (professionals i.e. , PA, [employer], lab, RT, psych nurse, social professionals, truck driving, teacher, intelligence officer basic, casework specialist)? Give summary @ -[No] Was smoking cessation discussed for >3mins.? @ -[No] Was critical care preformed (if so, how long)? @ -[No] Were there social determinants of health that impacted care today? How? (Homelessness, low income, unemployed, alcoholism, drug addiction, transportation, low edu. Level, literacy, decrease access to med. care, longterm, rehab)? @ -[No] Was there de-escalation of care discussed even if they declined (Discuss DNR or withdrawal of care, Hospice)? DNR status @ -[No] What co-morbidities impacted this encounter? (DM, HTN, Smoking, COPD, CAD, Cancer, CVA, ARF, Chemo, Hep., AIDS, mental health diagnosis, sleep apnea, morbid obesity)? @ -[None] Was patient admitted / discharged? Hospital course, mention meds given and route, prescriptions, significant lab abnormalities, going to OR and other pertinent info. @ -[See above Undiagnosed new problem with uncertain prognosis? @ -[No] Drug Therapy requiring intensive monitoring for toxicity (Heparin, Nitro, Insulin, Cardizem)? @ -[No] Were any procedures done? @ -[No] Diagnosis/symptom? @ -[Acute chest pain Dehydration with some generalized weakness Acute, or Chronic, or Acute on Chronic? @ -[Acute Uncomplicated (without systemic symptoms) or Complicated (systemic symptoms)? @ -[Complicated with generalized weakness Side effects of treatment? @ -[No] Exacerbation, Progression, or Severe Exacerbation? @ -[No] Poses a threat to life or bodily function? How? (Chest pain, USA, SC, pneumonia, PE, COPD, DKA, ARF, appy, cholecystitis, CVA, Diverticulitis, Homicidal, Suicidal, threat to staff... and all critical care pts) @ -[No] - Lab Data Result diagrams: 01/18/23 16:00 01/18/23 16:00 Lab Results 01/18/23 01/18/23 01/18/23 Range/Units 16:00 16:00 16:00 WBC 8.9 (3.8-10.6) k/uL RBC 4.86 (4.30-5.90) m/uL Hgb 15.1 (13.0-17.5) gm/dL Hct 46.8 (39.0-53.0) % MCV 96.3 (80.0-100.0) fL MCH 31.0 (25.0-35.0) pg MCHC 32.2 (31.0-37.0) g/dL RDW 13.8 (11.5-15.5) % Plt Count 167 (150-450) k/uL MPV 7.9 Neutrophils % 69 % Lymphocytes % 19 % Monocytes % 6 % Eosinophils % 3 % Basophils % 0 % Neutrophils # 6.2 (1.3-7.7) k/uL Lymphocytes # 1.7 (1.0-4.8) k/uL Monocytes # 0.6 (0-1.0) k/uL Eosinophils # 0.3 (0-0.7) k/uL Basophils # 0.0 (0-0.2) k/uL PT 11.2 (10.0-12.5) sec INR 1.0 (<1.2) APTT 26.2 (22.0-30.0) sec Sodium 139 (137-145) mmol/L Potassium 4.8 (3.5-5.1) mmol/L Chloride 105 (98-107) mmol/L Carbon Dioxide 27 (22-30) mmol/L Anion Gap 7 mmol/L BUN 29 H (9-20) mg/dL Creatinine 1.06 (0.66-1.25) mg/dL Est GFR (CKD-EPI)AfAm 74 (>60 ml/min/1.73 sqM) Est GFR (CKD-EPI)NonAf 64 (>60 ml/min/1.73 sqM) Glucose 176 H (74-99) mg/dL Calcium 9.1 (8.4-10.2) mg/dL Magnesium 2.0 (1.6-2.3) mg/dL Total Bilirubin 0.6 (0.2-1.3) mg/dL AST 24 (17-59) U/L ALT 28 (4-49) U/L Alkaline Phosphatase 63 (38-126) U/L Troponin I (0.000-0.034) ng/mL Total Protein 6.1 L (6.3-8.2) g/dL Albumin 3.5 (3.5-5.0) g/dL Urine Color Urine Appearance (Clear) Urine pH (5.0-8.0) Ur Specific Fay (1.001-1.035) Urine Protein (Negative) Urine Glucose (UA) (Negative) Urine Ketones (Negative) Urine Blood (Negative) Urine Nitrite (Negative) Urine Bilirubin (Negative) Urine Urobilinogen (<2.0) mg/dL Ur Leukocyte Esterase (Negative) Urine RBC (0-5) /hpf Urine WBC (0-5) /hpf Ur Squamous Epith Cells (0-4) /hpf Urine Bacteria (None) /hpf Urine Mucus (None) /hpf 01/18/23 01/18/23 Range/Units 16:00 17:53 WBC (3.8-10.6) k/uL RBC (4.30-5.90) m/uL Hgb (13.0-17.5) gm/dL Hct (39.0-53.0) % MCV (80.0-100.0) fL MCH (25.0-35.0) pg MCHC (31.0-37.0) g/dL RDW (11.5-15.5) % Plt Count (150-450) k/uL MPV Neutrophils % % Lymphocytes % % Monocytes % % Eosinophils % % Basophils % % Neutrophils # (1.3-7.7) k/uL Lymphocytes # (1.0-4.8) k/uL Monocytes # (0-1.0) k/uL Eosinophils # (0-0.7) k/uL Basophils # (0-0.2) k/uL PT (10.0-12.5) sec INR (<1.2) APTT (22.0-30.0) sec Sodium (137-145) mmol/L Potassium (3.5-5.1) mmol/L Chloride (98-107) mmol/L Carbon Dioxide (22-30) mmol/L Anion Gap mmol/L BUN (9-20) mg/dL Creatinine (0.66-1.25) mg/dL Est GFR (CKD-EPI)AfAm (>60 ml/min/1.73 sqM) Est GFR (CKD-EPI)NonAf (>60 ml/min/1.73 sqM) Glucose (74-99) mg/dL Calcium (8.4-10.2) mg/dL Magnesium (1.6-2.3) mg/dL Total Bilirubin (0.2-1.3) mg/dL AST (17-59) U/L ALT (4-49) U/L Alkaline Phosphatase (38-126) U/L Troponin I <0.012 (0.000-0.034) ng/mL Total Protein (6.3-8.2) g/dL Albumin (3.5-5.0) g/dL Urine Color Colorless Urine Appearance Clear (Clear) Urine pH 5.0 (5.0-8.0) Ur Specific Fay 1.018 (1.001-1.035) Urine Protein Negative (Negative) Urine Glucose (UA) Negative (Negative) Urine Ketones Negative (Negative) Urine Blood Negative (Negative) Urine Nitrite Negative (Negative) Urine Bilirubin Negative (Negative) Urine Urobilinogen <2.0 (<2.0) mg/dL Ur Leukocyte Esterase Large H (Negative) Urine RBC 1 (0-5) /hpf Urine WBC 8 H (0-5) /hpf Ur Squamous Epith Cells 1 (0-4) /hpf Urine Bacteria Rare H (None) /hpf Urine Mucus Rare H (None) /hpf Disposition Clinical Impression: Chest pain, Dehydration Disposition: HOME SELF-CARE Condition: Fair Instructions (If sedation given, give patient instructions): Chest Pain (ED), Dehydration (ED) Is patient prescribed a controlled substance at d/c from ED?: No Referrals: Orlando Toney MD [Primary Care Provider] - 1-2 days
[2023-01-18 18:15] LABS: Appearance,Urine Clear (Clear); Bacteria,Urine Rare /hpf; Bilirubin,Urine Negative (Negative); Blood,Urine Negative (Negative); Color,Urine Colorless; Glucose,Urine (UA) Negative (Negative); Ketones,Urine Negative (Negative); Leukocyte Esterase,Urine Large (Negative); Mucus,Urine Rare /hpf; Nitrite,Urine Negative (Negative); Protein,Urine Negative (Negative); RBC,Urine 1 /hpf (0-5); Specific Gravity,Urine 1.018 (1.001-1.035); Squamous Epithelial Cell,Urine 1 /hpf (0-4); Urobilinogen,Urine <2.0 mg/dL (<2.0); WBC,Urine 8 /hpf (0-5)
[2023-01-18] MEDS ORDERED: SODIUM CHLORIDE 0.9% 500 ML 500 ML IV STA (18:42)
[2023-01-18 18:57] VITALS: RESP 18
[2023-01-18 21:37] VITALS: BP 176/86; PULSE 56
== END 2023-01-18 21:14 | disposition home or self-care (01) ==
LOC: EC 15:52
DX: R07.89 Other chest pain (principal); E86.0 Dehydration; E11.9 Type 2 diabetes mellitus without complications; I11.0 Hypertensive heart disease with heart failure; I50.9 Heart failure, unspecified; I48.91 Unspecified atrial fibrillation; I25.2 Old myocardial infarction; E07.9 Disorder of thyroid, unspecified; Z79.890 Hormone replacement therapy; Z79.01 Long term (current) use of anticoagulants; Z79.4 Long term (current) use of insulin; Z79.899 Other long term (current) drug therapy
CPT/HCPCS: 36415; 71046; 80053; 81001; 83735; 84484; 85025; 85610; 85730; 93005; 99285